=== PATIENT | female | born 1940 | race Caucasian/White ===

== ENCOUNTER → 2020-09-12 11:01 | Outpatient (BNVA) | payer MEDICARE, SELFPAY | PROVIDERS: PCP Internal Medicine; Referring Provider Internal Medicine; Visit Provider Internal Medicine | DX: I48.92 Unspecified atrial flutter (principal); I35.0 Nonrheumatic aortic (valve) stenosis; Z79.01 Long term (current) use of anticoagulants | CPT/HCPCS: 99212 ==

== ENCOUNTER → 2021-02-27 12:46 | Outpatient (REF) | payer MEDICARE, SELFPAY ==
--- NOTE | 2021-02-27 12:52 | CA_ITS ---
Transthoracic Echocardiogram Patient (Last, First, Middle): Alondra Kaye J Gender: Female Date of : 1940 Age: 80 Procedure Date: 02/27/2021 Procedure Type: Transthoracic Echocardiogram Location: OP Height: 165.1 cm Weight: 70.31 kg BSA: 1.78 m2 Heart Rate: bpm BP: 136 / 70 mmHg Home Appliances Mechanic: [email or web address] Referring MD: Hermes Hermosillo MD Symptoms: I35.0 - Nonrheumatic aortic (valve) stenosis Study Quality: Good ECG Rhythm: Sinus Conclusions: - The left ventricular systolic function is normal. The visually estimated ejection fraction is between 55-60%. - There is moderate aortic valve stenosis. - There is moderate mitral annular calcification. Findings Left Ventricle Normal left ventricular cavity size. There is mildly increased left ventricular wall thickness. The left ventricular systolic function is normal. The visually estimated ejection fraction is between 55-60%. There is no evidence of regional wall motion abnormalities. E/E prime ratio is >15, consistent with elevated filling pressures. Evidence suggests grade I (mild) diastolic dysfunction. Right Ventricle Normal right ventricular cavity size. There is low normal right ventricular systolic function. Atria The left atrium is normal in size. The right atrium is normal in size. Aortic Valve There is severe calcification of the aortic valve. There is moderate aortic valve stenosis. The peak aortic velocity is 2.97 m/s with a calculated peak gradient of 35 mmHg. The mean gradient is 20 mmHg. The aortic valve area is 1.07 cm2. There is no aortic valve regurgitation. Dimensionless index 0.36. Stroke volume 39ml. Mitral Valve There is moderate mitral annular calcification. There is mild mitral valve regurgitation. There is no mitral valve stenosis. Pulmonic Valve The pulmonic valve was not well visualized. Tricuspid Valve There is trace tricuspid valve regurgitation. The pulmonary artery systolic pressure is normal. Great Vessels The aortic annulus is normal in size. Venous The inferior vena cava is normal in size and collapses greater than 50% with inspiration. Pericardium/Pleural There is no evidence of pericardial effusion. Prior Study Comparison No significant change compared to prior study dated: 05/24/2020. Measurements 2D Linear Measurements IVSd: 1.14 0.6-0.9/0.6-1.0 cm LVIDd: 3.61 3.9-5.3/4.2-5.9 cm LVIDd Index: 2.03 2.4-3.2/2.2-3.1 cm/m2 LVIDs: 2.67 2.0-3.6 cm LVPWd: 1.14 0.7-1.1 cm Ao Root: 3.30 2.1-3.5 cm LA Diam: 3.70 2.7-3.8/3.0-4.0 cm LAIDs Index: 2.08 1.5-2.3 cm/m2 LV Mass: 163.58 67-162/88-224 g LV Mass Index: 91.90 43-95/49-115 g/m2 LVOT Diam: 2.00 3.0+(-)1.3 cm 2D Systolic Function EF 4C: 57.80 >55% EF 2C: 58.60 >55% EF BiP: 59.10 >55% Mitral Valve MV Pk E: 1.07 MV PK A: 1.01 MV Decel Time: 237.00 E/A: 1.10 E'Lateral: 8.16 E'Medial: 6.09 E/E' Med: 17.60 E/E' Lat: 13.10 PHT: 69.00 MVA PHT: 3.19 Decel Floyd: 4.51 Aortic Valve AoV Pk Butch: 2.97 AoV Mn Butch: 2.16 AoV VTI: 0.66 AoV Pk Grad: 35.00 Aov Mn Grad: 20.00 MAXIMO Cont.VTI: 1.07 LVOT LVOT Pk Butch: 1.07 LVOT Mn Butch: 0.76 LVOT VTI: 0.22 LVOT Pk Grad: 5.00 LVOT Mn Grad: 3.00 LVOT Diam: 2.00 LVOT Area: 3.14 Diastolic Function MV Pk E: 1.07 MV Pk A: 1.01 E/A: 1.10 E'Medial: 6.09 E/E' Med: 17.60 E' Laterial: 8.16 E/E' Lat: 13.10 Tricuspid Valve TR Pk Butch: 1.97 TR Pk Grad: 16.00 RA Press: 3.00 RVSP: 19.00 Great Vessels Aorta Ao Root-2D: 3.30 2.0-3.7 cm Ao Arch: 2.50 Updated in Other Vendor System with Status of Final Hermes Hermosillo MD electronically signed on 02/28/2021 4:22:34 PM with status of Final
== END ==
LOC: HO.CARD 12:46
PROVIDERS: PCP Internal Medicine; Visit Provider Internal Medicine
DX: I35.0 Nonrheumatic aortic (valve) stenosis (principal)
CPT/HCPCS: 93306

== ENCOUNTER → 2021-03-07 10:53 | Outpatient (BNVA) | payer MEDICARE, SELFPAY | PROVIDERS: PCP Internal Medicine; Visit Provider Internal Medicine | DX: I48.92 Unspecified atrial flutter (principal); I35.0 Nonrheumatic aortic (valve) stenosis; I05.9 Rheumatic mitral valve disease, unspecified | CPT/HCPCS: 93005; 99212 ==

== ENCOUNTER 2021-06-02 13:58 | Outpatient (REF) | payer MEDICARE, SELFPAY ==
--- NOTE | ~2021-06-02 | MR_ITS ---
EXAMINATION: MR LUMBAR SPINE WITHOUT CONTRAST CLINICAL INFORMATION: Intervertebral disc degeneration lumbar region. Radicular pain bilaterally. COMPARISON: None TECHNIQUE: MRI of the lumbar spine was obtained using routine sequences without contrast. FINDINGS: The lumbar vertebral bodies maintain normal height and alignment. There is dextroscoliotic curvature in the lower thoracic spine levoscoliotic curvature in the lower lumbar spine. There is mild left lateral listhesis of L4 on L5. Advanced disc height loss is seen at L3-L4, L4-L5, and L5-S1. Subchondral marrow edema is seen at the superior endplate of L2. There is a hemangioma in the L1 vertebral body. The distal spinal cord is normal in signal. Ligamentum flavum infolding mildly deform the dorsal cord at the T11-T12 level with associated mild spinal canal stenosis. The posterior paraspinal musculature demonstrates fatty atrophy. SPINAL LEVELS: L1-L2: Disc bulging. Mild narrowing of the left neural foramen. L2-L3: Disc bulging with asymmetric narrowing the right subarticular zone. Mild narrowing of the neural foramina. L3-L4: Disc bulging with ligamentum flavum infolding moderate facet arthropathy. Mild spinal canal stenosis with right more than left subarticular stenosis with compression of the traversing right L4 nerve root. Mild to moderate compression of the exiting right L3 nerve root. Left neural foramen is mildly narrowed. L4-L5: Disc bulging with ligament flavum infolding and severe facet arthropathy results in severe spinal canal stenosis with thecal sac compression and compression of the traversing left more than right L5 nerve roots. Severe right and moderate left neural foraminal stenosis with significant compression of the exiting right L4 nerve root. Left L4 nerve root is mildly compressed. L5-S1: Disc bulging with moderate to severe facet arthropathy. Bilateral subarticular stenosis with compression of the traversing S1 nerve roots. Severe bilateral neural foraminal stenosis with significant compression of both exiting L5 nerve roots. MR/MR lumbar spine wo con IMPRESSION: Advanced multilevel degenerative spondylotic changes. At L3-L4 there is bilateral subarticular stenosis with compression of the traversing right L4 nerve root and mild to moderate compression of the exiting right L3 nerve root. At L4-L5 there is severe spinal canal stenosis with thecal sac compression and compression of the traversing L5 nerve roots. Severe right and moderate left neural foraminal stenosis with significant compression of the exiting right L4 nerve root. Left L4 nerve root is mildly compress. At L5-S1 there is compression of the bilateral traversing S1 nerve roots. Severe bilateral neural foraminal stenosis is seen with significant compression of both exiting L5 nerve roots.
== END 2021-06-02 13:59 | disposition home or self-care (01) ==
LOC: HO.MRI 13:58
PROVIDERS: Visit Provider Internal Medicine
DX: M51.36 Other intervertebral disc degeneration, lumbar region (principal)
CPT/HCPCS: 72148

== ENCOUNTER 2021-06-09 11:34 | Emergency (ER) | payer MEDICARE, SELFPAY ==
--- NOTE | ~2021-06-09 | CT_ITS ---
EXAMINATION: CT ABDOMEN AND PELVIS WITHOUT CONTRAST CLINICAL INFORMATION: Right-sided pain. COMPARISON: None TECHNIQUE: Multidetector volumetric imaging was performed from the superior aspect of the liver through the pubic symphysis. Sagittal and coronal reformatted images were obtained on the technologist's workstation. This CT examination was performed using dose optimization techniques as appropriate, variously including the following: *Automated exposure control *Adjustment of mA and/or kV according to patient size (this includes techniques or standardized protocols for targeted exams where dose is matched to indication/reason for exam; i.e. extremities or head) *Use of iterative reconstruction technique DLP: 545 mGy-cm FINDINGS: LUNG BASES: Minimal atelectatic changes are seen in left lung base. The heart size is normal. There is a small hiatal hernia. LIVER, GALLBLADDER, AND BILIARY TREE: The liver is normal in size, shape, and attenuation. No focal hepatic lesion or biliary ductal dilatation is present. The gallbladder is unremarkable with no evidence of radiopaque gallstones, gallbladder wall thickening, or obvious pericholecystic inflammatory changes. PANCREAS: Unremarkable. SPLEEN: Unremarkable. ADRENAL GLANDS: Unremarkable. KIDNEYS AND URETERS: The kidneys are normal in size, shape, and attenuation. No hydronephrosis, hydroureter, or calculi seen. No perinephric stranding. There is 3 mm radiopaque density in midpole of both kidneys without caliectasis question tiny calculi or calcification. BLADDER: The bladder is moderately distended. GASTROINTESTINAL TRACT: There is moderate scattered stool, diverticuli and gas without significant distention or diverticulitis. The small bowel loops are normal caliber. Appendix is not visualized. ABDOMINAL WALL: No significant hernia is appreciated. LYMPH NODES: Normal. VASCULAR: There is atherosclerotic calcification of abdominal aorta and common iliac arteries. PELVIC VISCERA: There is no free fluid or free air seen. Prominent left inguinal canal with fat within is noted. OSSEOUS STRUCTURES: There is levoscoliosis with degenerative disc changes L5-S1, L4-L5 L3-L4 and L2-L3 disc levels with moderate spondylosis. No lytic or sclerotic process seen. CT/CT abdomen pelvis wo con IMPRESSION: 3 mm radiopaque density visualized in midpole of both kidneys without caliectasis question tiny stones versus calcification. There is a midpole exophytic 8 mm cyst left kidney. Mild constipation with scattered colonic diverticulosis. Small hiatal hernia. Mild levoscoliosis with degenerative disc changes as described above.
[2021-06-09 11:43] VITALS: BP 151/80; PULSE 90; O2SAT 98
--- NOTE | 2021-06-09 12:16 | ED_ITS ---
HPI - Abdominal Pain General Chief Complaint: Abdominal Pain Stated Complaint: lower back/flank pain Time Seen by Provider: 06/09/21 12:16 Source: patient Mode of arrival: ambulatory Limitations: no limitations History of Present Illness HPI narrative: Patient with history of chronic back pain secondary to lumbar ca nal stenosis, been followed by her PCP complaining of increased pain in the back radiating to the right leg, in the right mid and upper quadrant for last few weeks and got worse in last 1 week no vomiting no diarrhea no blood in the stool feel slightly nauseated. No fever or chills no abdominal distension moving her bowels normally patient MRI done on 06/19 for lumbar spine Related Data Home Medications Medication Instructions Recorded Confirmed baclofen 10 mg tablet mg PO 09/12/20 03/07/21 gabapentin 100 mg capsule 200 mg PO BEDTIME 09/12/20 03/07/21 hydroxychloroquine 200 mg tablet 0 mg PO 09/12/20 03/07/21 latanoprost 0.005 % eye drops drp OPHTHALMIC (EYE) 09/12/20 03/07/21 omeprazole 20 mg capsule,delayed 20 mg PO DAILY 09/12/20 03/07/21 release prednisone 2.5 mg tablet 0 mg PO 09/12/20 03/07/21 tramadol 50 mg tablet 50 mg PO QID 09/12/20 03/07/21 Previous Rx's Medication Instructions Recorded diltiazem HCl 120 mg 120 mg PO DAILY #90 cap 03/07/21 capsule,extended release 24 hr apixaban 5 mg tablet (Eliquis) 5 mg PO BID 90 Days #180 tab 05/17/21 Allergies Allergy/AdvReac Type Severity Reaction Status Date / Time lisinopril [LISINOPRIL] Allergy Mild COUGH Verified 03/07/21 11:02 Tlymrku-Bxf-Xgx Reductase Allergy Mild RASH Verified 03/07/21 11:02 Inhibitor [LBTCDQX-GIH-YIC REDUCTASE INHIBITOR] cephalexin [Keflex] Allergy Unknown GI upset Verified 03/07/21 11:02 and pain hydrochlorothiazide Allergy Unknown unknown Verified 03/07/21 11:02 Review of Systems Review of Systems Constitutional : No Weight loss, No Fever, No Chills ENT/Mouth : No sore throat, No Rhinorrhea Eyes: No Eye Pain, No Swelling Cardiovascular : No Chest Pain, no palpitations Respiratory : No Cough, No Sputum, no shortness of breath Gastrointestinal : +Nausea, No Vomiting, No Diarrhea,+ abdominal Pain, no black stools Genitourinary : No Dysuria, No Urinary Frequency Musculoskeletal : No joint pain, No Myalgias, No Joint Swelling Skin : No Skin Lesions, No rash Neuro : No Weakness, No Numbness, No Dizziness, No Headache Psych : No Anxiety/Panic, No Depression Heme/Lymph: No Bruising, No Lymphadenopathy Endocrine : No Polyuria, No Polydipsia All other systems reviewed and are negative Physical Exam Vital Signs: Vital Signs: Last Vital Signs Temp 97.9 F 06/09/21 14:12 Pulse 78 06/09/21 14:22 Resp 17 06/09/21 14:22 BP 154/68 H 06/09/21 14:22 Pulse Ox 100 06/09/21 14:22 Body Mass Index 24.3 Appearance: Alert. Oriented X3. No acute distress. Eyes: no pallor or icterus ENT: Pharynx normal. Oral Mucosa moist Neck: Normal inspection. Neck supple. CVS: Normal heart rate and rhythm. Pulses normal. Respiratory: No respiratory distress. Equal air entry bilateral, no wheezing/rales/rhonchi Abdomen: Soft , deep tenderness right lower and right upper quadrant, no rebound tenderness or guarding Bowel sounds are present, no mass palpable, no CVA tenderness Skin: Skin warm and dry. Normal skin color. Normal skin turgor. Extremities: No lower extremity edema. No calf tenderness Back: Diffuse lumbar spine tenderness SLR negative bilateral neurovascular intact Neuro: Oriented X 3. No motor deficit. No sensory deficit.No cerebellar signs , cranial nerves II-XII intact MDM - Abdominal Pain MDM Narrative Medical decision making narrative: Patient MRI of lumbar spine diffuse lumbar canal stenosis involving from L2-L4 mostly on the right side likely the cause of the pain awaiting for the CT scan results labs are stable Patient's CT scan abdomen is negative for any acute pathology will discharge the patient home advised to continue her pain medication follow-up with PCP Lab Data Attestation: I reviewed the patient's lab results. Result diagrams: 06/09/21 12:40 06/09/21 12:40 Labs: Lab Results 06/09/21 06/09/21 06/09/21 Range/Units 12:40 12:40 12:40 WBC 10.0 (4.8-10.8) X10*3/uL RBC 4.21 (4.20-5.50) X10*6/uL Hgb 14.1 (12.0-16.0) g/dl Hct 40.9 (37-47) % MCV 97.1 (80-98) fL MCH 33.5 H (27.0-33.0) pg MCHC 34.5 (31.0-35.0) g/dl RDW 11.4 (11.0-16.0) % Plt Count 337 (160-400) X10*3/uL MPV 8.3 L (9.4-12.3) fL Immature Gran % (Auto) 0.3 (0.0-0.4) % Neut % (Auto) 84.3 H (45-73) % Lymph % (Auto) 7.0 L (20-40) % Stephenson % (Auto) 7.9 (2-11) % Eos % (Auto) 0.1 (0-4) % Baso % (Auto) 0.4 (0-2) % Lymph # (Auto) 0.7 L (1.2-4.9) X10*3/uL Stephenson # (Auto) 0.8 (0.1-1.2) X10*3/uL Eos # (Auto) 0.0 (0.0-0.4) X10*3/uL Baso # (Auto) 0.0 (0.0-0.2) X10*3/uL Abs Immat Gran (auto) 0.03 (0.00-0.03) X10*3/uL Absolute Neuts (auto) 8.4 H (2.0-8.3) X10*3/uL Absolute Nucleated RBC 0.000 (0.0-0.012) X10*3/uL Nucleated RBC % (auto) 0.0 (0.0-0.2) /100WBC PT 14.5 H (9.9-13.0) SEC INR 1.3 H (0.9-1.1) Sodium 133 L (135-145) mmol/L Potassium 3.9 (3.3-5.1) mmol/L Chloride 98 (96-108) mmol/L Carbon Dioxide 23 (22-29) mmol/L Anion Gap 16 (12-20) BUN 15 (9-16) mg/dL Creatinine 0.69 (0.5-1.4) mg/dL Estim Creat Clear Calc 58.8 Estimated GFR > 60 Random Glucose 94 (60-115) mg/dL Calcium 9.7 (8.4-10.2) mg/dL Total Bilirubin 1.1 H (0.0-1.0) mg/dL Direct Bilirubin 0.4 (0.0-0.5) mg/dL AST 26 (5-31) U/L ALT 24 (0-31) U/L Alkaline Phosphatase 88 (39-117) U/L Total Protein 6.5 (6.5-8.0) g/dL Albumin 4.1 (3.5-5.0) g/dL Lipase 26 (8-78) U/L Urine Color Urine Appearance Urine pH (5.0-8.0) Ur Specific [place] (1.005-1.025) Urine Protein (NEG-TRACE) MG/DL Urine Glucose (UA) (NEG) MG/DL Urine Ketones (NEG) MG/DL Urine Blood (NEG) Urine Nitrite (NEG) Ur Leukocyte Esterase (NEG) COVID-19 (DARLINE) (Negative) COVID-19 Clin Com 06/09/21 06/09/21 Range/Units 12:40 13:56 WBC (4.8-10.8) X10*3/uL RBC (4.20-5.50) X10*6/uL Hgb (12.0-16.0) g/dl Hct (37-47) % MCV (80-98) fL MCH (27.0-33.0) pg MCHC (31.0-35.0) g/dl RDW (11.0-16.0) % Plt Count (160-400) X10*3/uL MPV (9.4-12.3) fL Immature Gran % (Auto) (0.0-0.4) % Neut % (Auto) (45-73) % Lymph % (Auto) (20-40) % Stephenson % (Auto) (2-11) % Eos % (Auto) (0-4) % Baso % (Auto) (0-2) % Lymph # (Auto) (1.2-4.9) X10*3/uL Stephenson # (Auto) (0.1-1.2) X10*3/uL Eos # (Auto) (0.0-0.4) X10*3/uL Baso # (Auto) (0.0-0.2) X10*3/uL Abs Immat Gran (auto) (0.00-0.03) X10*3/uL Absolute Neuts (auto) (2.0-8.3) X10*3/uL Absolute Nucleated RBC (0.0-0.012) X10*3/uL Nucleated RBC % (auto) (0.0-0.2) /100WBC PT (9.9-13.0) SEC INR (0.9-1.1) Sodium (135-145) mmol/L Potassium (3.3-5.1) mmol/L Chloride (96-108) mmol/L Carbon Dioxide (22-29) mmol/L Anion Gap (12-20) BUN (9-16) mg/dL Creatinine (0.5-1.4) mg/dL Estim Creat Clear Calc Estimated GFR Random Glucose (60-115) mg/dL Calcium (8.4-10.2) mg/dL Total Bilirubin (0.0-1.0) mg/dL Direct Bilirubin (0.0-0.5) mg/dL AST (5-31) U/L ALT (0-31) U/L Alkaline Phosphatase (39-117) U/L Total Protein (6.5-8.0) g/dL Albumin (3.5-5.0) g/dL Lipase (8-78) U/L Urine Color YELLOW Urine Appearance CLEAR Urine pH 6.5 (5.0-8.0) Ur Specific [place] 1.010 (1.005-1.025) Urine Protein NEG (NEG-TRACE) MG/DL Urine Glucose (UA) NEG (NEG) MG/DL Urine Ketones 15 (NEG) MG/DL Urine Blood NEG (NEG) Urine Nitrite NEG (NEG) Ur Leukocyte Esterase NEG (NEG) COVID-19 (DARLINE) Negative (Negative) COVID-19 Clin Com See Note Discharge Plan Discharge Clinical Impression: Lumbar canal stenosis Qualifiers: Neurogenic claudication status: without neurogenic claudication Qualified Code(s): M48.061 - Spinal stenosis, lumbar region without neurogenic claudication Patient Disposition: Home, Self-Care Instructions: Chronic Back Pain (DC) Additional Instructions: Continue pain medication and follow-up with your PCP Prescriptions: No Action Eliquis 5 mg tablet 5 mg PO BID 90 Days Qty: 180 RF: 3 prednisone 2.5 mg tablet 0 mg PO RF: 0 tramadol 50 mg tablet 50 mg PO QID RF: 0 omeprazole 20 mg capsule,delayed release(DR/EC) 20 mg PO DAILY RF: 0 baclofen 10 mg tablet PO RF: 0 gabapentin 100 mg capsule 200 mg PO BEDTIME RF: 0 latanoprost 0.005 % drops ophthalmic (eye) RF: 0 hydroxychloroquine 200 mg tablet 0 mg PO RF: 0 diltiazem HCl 120 mg capsule,extended release 24hr 120 mg PO DAILY Qty: 90 RF: 4 PMFSH Past Medical History Medical History Essential hypertension Nonrheumatic aortic (valve) stenosis Paroxysmal atrial flutter Psoriatic arthritis Surgical History History of hysterectomy History of knee surgery Family History Family History Father CVD (cardiovascular disease) Mother No problems noted. Social History Social History Advance Directives: Yes Advance Directives Information Provided: Yes Advance Directives on File: No
[2021-06-09 12:20] VITALS: BP 150/73; PULSE 85; RESP 17; TEMP 36.6; O2SAT 100; BMI 24.3
--- NOTE | 2021-06-09 12:24 | ECG_ITS ---
Test Reason : ABDOMINAL PAIN Blood Pressure : / mmHG Vent. Rate : 080 BPM Atrial Rate : 080 BPM P-R Int : 194 ms QRS Dur : 138 ms QT Int : 426 ms P-R-T Axes : 083 -06 010 degrees QTc Int : 491 ms Normal sinus rhythm Right bundle branch block Minimal voltage criteria for LVH, may be normal variant Abnormal ECG When compared with ECG of 19-AUG-2019 20:44, MS interval has decreased Right bundle branch block has replaced Incomplete right bundle branch block Referred By: Claude Bullard Electronically Signed By:ZIYAD CROWLEY
[2021-06-09 12:44] LABS: MANUAL DIFF FLAG NO
[2021-06-09] MEDS: ondansetron HCL 4 MG/2 ML VIAL IVPUSH (12:47)
[2021-06-09] MEDS: Morphine Sulfate 2 MG/ML CARTRIDGE IVPUSH (12:47)
[2021-06-09 12:48] LABS: Basophils Percent Auto 0.4 % (0-2); Eosinophils Percent Auto 0.1 % (0-4); Hematocrit 40.9 % (37-47); Hemoglobin 14.1 g/dl (12.0-16.0); Imm Gran Abs Auto 0.03 X10*3/uL (0.00-0.03); Imm Gran Pct Auto 0.3 % (0.0-0.4); Lymphocytes Absolute Auto 0.7 X10*3/uL (1.2-4.9); Mean Corpuscular HGB Conc 34.5 g/dl (31.0-35.0); Mean Corpuscular Hemoglobin 33.5 pg (27.0-33.0); Mean Corpuscular Volume 97.1 fL (80-98); Mean Platelet Volume 8.3 fL (9.4-12.3); Monocytes Absolute Auto 0.8 X10*3/uL (0.1-1.2); Monocytes Percent Auto 7.9 % (2-11); Neutrophils Absolute Auto 8.4 X10*3/uL (2.0-8.3); Neutrophils Percent Auto 84.3 % (45-73); Platelet Count 337 X10*3/uL (160-400); Red Blood Count 4.21 X10*6/uL (4.20-5.50); Red Cell Distribution Width 11.4 % (11.0-16.0)
[2021-06-09] MEDS: 0.9 % Sodium Chloride 1,000 ML 999 ML IVCONT (12:48)
[2021-06-09 13:03] LABS: INTERNATIONAL NORM RATIO 1.3 (0.9-1.1); Prothrombin Time 14.5 SEC (9.9-13.0)
[2021-06-09 13:04] LABS: COVID-19 Test Negative (Negative)
[2021-06-09 13:28] LABS: Alanine Aminotransferase 24 U/L (0-31); Albumin Level 4.1 g/dL (3.5-5.0); Alkaline Phosphatase 88 U/L (39-117); Anion Gap 16 (12-20); Aspartate Amino Transferase 26 U/L (5-31); Bilirubin Direct 0.4 mg/dL (0.0-0.5); Bilirubin Total 1.1 mg/dL (0.0-1.0); Blood Urea Nitrogen 15 mg/dL (9-16); Calcium 9.7 mg/dL (8.4-10.2); Carbon Dioxide 23 mmol/L (22-29); Chloride 98 mmol/L (96-108); Creatinine Clr Calc Pharmacy 58.8; Estimated Glomerular Filt Rate > 60; Glucose Random 94 mg/dL (60-115); Lipase 26 U/L (8-78); Potassium 3.9 mmol/L (3.3-5.1); Sodium 133 mmol/L (135-145); Total Protein 6.5 g/dL (6.5-8.0)
[2021-06-09 14:03] LABS: Glucose Urine UA NEG (NEG); Leukocyte Esterase Urine NEG (NEG); Nitrite Urine NEG (NEG); PH 6.5 (5.0-8.0); Urine Blood NEG (NEG); Urine Ketones 15 MG/DL (NEG); Urine Protein NEG (NEG-TRACE)
[2021-06-09 14:04] LABS: Appearance Urine CLEAR; Color Urine YELLOW
[2021-06-09 14:12] VITALS: BP 154/68; PULSE 79; RESP 14; TEMP 36.6; O2SAT 96
[2021-06-09 14:22] VITALS: BP 154/68; PULSE 78; RESP 17; O2SAT 100
[2021-06-09 16:00] VITALS: BP 175/83; PULSE 88; RESP 18; O2SAT 100
== END 2021-06-09 16:44 | disposition home or self-care (01) ==
PROVIDERS: Emergency Provider Internal Medicine
DX: M48.061 Spinal stenosis, lumbar region without neurogenic claudication (principal); Z20.822 Contact with and (suspected) exposure to COVID-19; I10 Essential (primary) hypertension; I48.92 Unspecified atrial flutter
CPT/HCPCS: 36415; 74176; 80048; 80076; 81003; 83690; 85025; 85610; 87635; 93005; 96361; 96374; 96375; 99284; J2270; J2405

== ENCOUNTER 2021-06-16 20:57 | Inpatient (IN) | payer MEDICARE, SELFPAY ==
--- NOTE | ~2021-06-16 | MR_ITS ---
EXAMINATION: MR CERVICAL SPINE WITHOUT CONTRAST CLINICAL INFORMATION: Neurogenic bladder. COMPARISON: MRI scan of the cervical spine 09/16/2019. TECHNIQUE: MRI of the cervical spine was obtained using routine sequences without contrast. FINDINGS: VERTEBRAL BODIES AND PARASPINAL SOFT TISSUES: There is reversal of the normal cervical lordosis. There is a stable 3.5 mm anterolisthesis of C3 on C4. There is multilevel narrowing of intervertebral disc height between C3-C4 and C6-C7. There are multilevel degenerative endplate contour changes. There has been interval resolution of the edematous signal changes at C3-C4. Vertebral body heights are maintained and no fractures are demonstrated. Overall, marrow signal is homogenous. The paravertebral structures are unremarkable. CERVICOMEDULLARY JUNCTION AND VISUALIZED POSTERIOR FOSSA: The craniocervical and posterior fossa structures are normal. There is slight increased signal in the spinal cord at the level of C3-C4 which may be consistent with edema. SPINAL LEVELS: C2-C3: There is moderate left and mild right facet arthropathy. There is a shallow posterior disc protrusion without spinal cord compression or central stenosis. There are uncovertebral osteophytes. There is mild left foraminal narrowing. C3-C4: There is severe left and mild right facet arthropathy. There is a broad-based posterior soft disc protrusion with unroofing of the disc, which further compresses the spinal cord and there is severe central stenosis. There are uncovertebral osteophytes bilaterally, and there is severe bilateral foraminal narrowing. C4-C5: There is moderate left and mild right facet arthropathy. There is a posterior disc protrusion which effaces CSF ventral to the spinal cord without spinal cord compression. There is mild central stenosis. There are uncovertebral osteophytes, more prominent on the left. There is severe bilateral foraminal narrowing. C5-C6: There is moderate bilateral facet arthropathy. There is a broad-based posterior disc protrusion which effaces CSF ventral to the spinal cord without spinal cord compression. There is mild central stenosis. There are uncovertebral osteophytes. There is severe right and moderate to severe left foraminal narrowing. C6-C7: There is mild left facet arthropathy. There is a posterior disc protrusion with mild distortion of the ventral thecal sac without spinal cord compression. There is mild central stenosis. There are uncovertebral osteophytes. There is moderate bilateral foraminal narrowing. C7-T1: The facet joints appear normal bilaterally. Posterior disc contour is normal. There is no spinal cord compression or central stenosis. The neural foramina are patent bilaterally. MR/MR cervical spine wo con IMPRESSION: 1. The study redemonstrates a 3.5 mm anterolisthesis of C3 on C4 secondary to facet arthropathy. There is a broad-based posterior disc protrusion which further compresses the spinal cord and there is severe central stenosis. There is increased signal in the cord at this level, consistent with edema. 2. Facet arthropathy and spondylitic changes are demonstrated at multiple other levels. There is mild central stenosis at C4-C5, C5-C6 and C6-C7. There is severe bilateral foraminal narrowing at C4-C5, severe right and moderate to severe left foraminal narrowing at C5-C6 and moderate bilateral foraminal narrowing at C6-C7. 3. This critical result was discussed with Lou Beckham by telephone on 06/18/2021 at 3:50 PM and it was ascertained that the content and urgency of the report was understood at the time of direct communication.
[2021-06-16 21:10] VITALS: BP 190/100; BP 190/108; PULSE 90; PULSE 93; RESP 15; TEMP 36.5; O2SAT 100; BMI 24.3
[2021-06-16 21:47] VITALS: BP 184/90; PULSE 84; RESP 13; O2SAT 100
--- NOTE | 2021-06-16 21:47 | PC.NURSE ---
Pt sheet draw to without incidence. 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 Pt provided destiney care, purewick in place. Pt with red fall band on wrist, red fall sign posted outside of room and red fall prevention socks on. Bed in low locked position, rails raised, call connors within reach, fall alarm active and audible.
[2021-06-16 22:16] LABS: COVID-19 Test Negative (Negative)
--- NOTE | 2021-06-16 22:27 | ED_ITS ---
HPI - Back Pain/Injury General Chief Complaint: Back Pain/Injury Stated Complaint: BACK PAIN Time Seen by Provider: 06/16/21 22:25 Source: patient Mode of arrival: EMS History of Present Illness HPI Narrative: This is an 80-year-old female who presents via EMS from home with complaints of increased lower back pain from her baseline as well as reporting that over the past week she has experienced increasing weakness in her bilateral lower extremities that she further clarifies is not associated with the level of pain but that it is ?truly weaker?. She denies any numbness in the groin area and denies any fever, chills, shortness of breath, chest pain/palpitations, but she does describe some nausea without vomiting and otherwise denies any diarrhea as well as denies any recent changes in medications or dosage. Patient then made comment at the end of the interview that she had a urine collection device in place and although she felt like she may have urinated she states that ?I do not feel any better?. Related Data Home Medications Medication Instructions Recorded Confirmed baclofen 10 mg tablet 10 mg PO QID PRN 09/12/20 06/16/21 gabapentin 100 mg capsule 200 mg PO BEDTIME 09/12/20 06/16/21 hydroxychloroquine 200 mg tablet 200 mg PO DAILY 09/12/20 06/16/21 latanoprost 0.005 % eye drops 1 drp OPHTHALMIC (EYE) BEDTIME 09/12/20 06/16/21 omeprazole 20 mg capsule,delayed 20 mg PO DAILY 09/12/20 06/16/21 release prednisone 5 mg tablet 1 tab PO DAILY 06/16/21 06/16/21 Previous Rx's Medication Instructions Recorded diltiazem HCl 120 mg 120 mg PO DAILY #90 cap 03/07/21 capsule,extended release 24 hr apixaban 5 mg tablet (Eliquis) 5 mg PO BID 90 Days #180 tab 05/17/21 Allergies Allergy/AdvReac Type Severity Reaction Status Date / Time lisinopril [LISINOPRIL] Allergy Mild COUGH Verified 06/16/21 21:10 Sbrwumx-Voz-Llh Reductase Allergy Mild RASH Verified 06/16/21 21:10 Inhibitor [[id number] REDUCTASE INHIBITOR] cephalexin [Keflex] Allergy Unknown GI upset Verified 06/16/21 21:10 and pain hydrochlorothiazide Allergy Unknown unknown Verified 06/16/21 21:10 Sulfa (Sulfonamide Allergy Rash Verified 06/16/21 21:10 Antibiotics) Review of Systems Review of Systems: Pertinent positives and negatives as stated in HPI 10 point review of systems is otherwise negative. [facility] Past Medical History Source: nursing notes reviewed Medical History Essential hypertension Nonrheumatic aortic (valve) stenosis Paroxysmal atrial flutter Psoriatic arthritis Surgical History History of hysterectomy History of knee surgery Family History Family History Father CVD (cardiovascular disease) Mother No problems noted. Social History Social History Advance Directives: No Advance Directives Information Provided: No Physical Exam Vital Signs: Vital Signs: Last Vital Signs Temp 97.7 F 06/16/21 21:10 Pulse 81 06/16/21 23:40 Resp 17 06/16/21 23:40 BP 178/93 H 06/16/21 23:40 Pulse Ox 100 06/16/21 23:40 Body Mass Index 24.3 VITAL SIGNS: Reviewed. GENERAL: Well developed, well nourished, in no acute distress. HEAD: Normocephalic/atraumatic EYES: PERRLA, EOMI EARS: Ext canals without abnormality NOSE: Nares patent bilateral OROPHARYNX: no oral lesions noted, posterior pharynx clear LUNGS: Normal breath sounds. No adventitious sounds or accessory muscle use. SpO2<100> CARDIOVASCULAR: Regular rate and rhythm without noted murmurs, no JVD or lower extremity edema. ABDOMEN: Soft, non-tender, non-distended with bowel sounds. MUSCULOSKELETAL: No tenderness, deformities, or effusions noted on gross inspection. EXTREMITIES: No cyanosis, clubbing or edema. SKIN: Inspection of the skin reveals no rashes NEUROLOGIC: Alert and oriented x 4. Sensation symmetrical in bilateral lower extremities from ankle to thigh, Strength L>R, otherwise no focal deficits. Course Course Course Narrative: 80-year-old female with history and clinical presentation consistent with significant L/S spinal stenoses, right greater than left and concerns regarding patient's comment about inability to since relief from voiding. Immediate bladder scan was ordered and patient noted to have retained urine estimated at over a L. although patient voided PVR was approximately 800 cc and on review of urinalysis no evidence of UTI. Again medication list was reviewed and in consistent with impact on urinary retention. Otherwise, review of lab work shows hyponatremia/chloremia. 0024: Case discussed with Neurology, Dr. Florian, who recommends 500 mg of Solu- Medrol and will see the patient in the morning. I discussed case with inpatient hospitalist who accepts admission. MDM - Back Pain/Injury Lab Data Result diagrams: 06/16/21 22:52 06/16/21 22:52 Labs: Lab Results 06/16/21 06/16/21 06/16/21 Range/Units 21:46 22:52 22:52 WBC 7.4 (4.8-10.8) X10*3/uL RBC 3.82 L (4.20-5.50) X10*6/uL Hgb 12.7 (12.0-16.0) g/dl Hct 35.8 L (37-47) % MCV 93.7 (80-98) fL MCH 33.2 H (27.0-33.0) pg MCHC 35.5 H (31.0-35.0) g/dl RDW 11.2 (11.0-16.0) % Plt Count 340 (160-400) X10*3/uL MPV 8.1 L (9.4-12.3) fL Immature Gran % (Auto) 0.3 (0.0-0.4) % Neut % (Auto) 72.9 (45-73) % Lymph % (Auto) 15.1 L (20-40) % [place] % (Auto) 11.1 H (2-11) % Eos % (Auto) 0.1 (0-4) % Baso % (Auto) 0.5 (0-2) % Lymph # (Auto) 1.1 L (1.2-4.9) X10*3/uL [place] # (Auto) 0.8 (0.1-1.2) X10*3/uL Eos # (Auto) 0.0 (0.0-0.4) X10*3/uL Baso # (Auto) 0.0 (0.0-0.2) X10*3/uL Abs Immat Gran (auto) 0.02 (0.00-0.03) X10*3/uL Absolute Neuts (auto) 5.4 (2.0-8.3) X10*3/uL Absolute Nucleated RBC 0.000 (0.0-0.012) X10*3/uL Nucleated RBC % (auto) 0.0 (0.0-0.2) /100WBC PT (9.9-13.0) SEC INR (0.9-1.1) Sodium 125 L (135-145) mmol/L Potassium 4.2 (3.3-5.1) mmol/L Chloride 92 L (96-108) mmol/L Carbon Dioxide 24 (22-29) mmol/L Anion Gap 13 (12-20) BUN 12 (9-16) mg/dL Creatinine 0.60 (0.5-1.4) mg/dL Estim Creat Clear Calc 67.7 Estimated GFR > 60 Random Glucose 100 (60-115) mg/dL Calcium 9.1 D (8.4-10.2) mg/dL Total Bilirubin 0.9 (0.0-1.0) mg/dL AST 24 (5-31) U/L ALT 20 (0-31) U/L Alkaline Phosphatase 118 H D (39-117) U/L Total Protein 5.8 L (6.5-8.0) g/dL Albumin 3.7 (3.5-5.0) g/dL Urine Color Urine Appearance Urine pH (5.0-8.0) Ur Specific [place] (1.005-1.025) Urine Protein (NEG-TRACE) MG/DL Urine Glucose (UA) (NEG) MG/DL Urine Ketones (NEG) MG/DL Urine Blood (NEG) Urine Nitrite (NEG) Ur Leukocyte Esterase (NEG) COVID-19 (DARLINE) Negative (Negative) COVID-19 Clin Com See Note 06/16/21 06/16/21 Range/Units 22:52 23:11 WBC (4.8-10.8) X10*3/uL RBC (4.20-5.50) X10*6/uL Hgb (12.0-16.0) g/dl Hct (37-47) % MCV (80-98) fL MCH (27.0-33.0) pg MCHC (31.0-35.0) g/dl RDW (11.0-16.0) % Plt Count (160-400) X10*3/uL MPV (9.4-12.3) fL Immature Gran % (Auto) (0.0-0.4) % Neut % (Auto) (45-73) % Lymph % (Auto) (20-40) % [place] % (Auto) (2-11) % Eos % (Auto) (0-4) % Baso % (Auto) (0-2) % Lymph # (Auto) (1.2-4.9) X10*3/uL [place] # (Auto) (0.1-1.2) X10*3/uL Eos # (Auto) (0.0-0.4) X10*3/uL Baso # (Auto) (0.0-0.2) X10*3/uL Abs Immat Gran (auto) (0.00-0.03) X10*3/uL Absolute Neuts (auto) (2.0-8.3) X10*3/uL Absolute Nucleated RBC (0.0-0.012) X10*3/uL Nucleated RBC % (auto) (0.0-0.2) /100WBC PT 16.5 H (9.9-13.0) SEC INR 1.4 H (0.9-1.1) Sodium (135-145) mmol/L Potassium (3.3-5.1) mmol/L Chloride (96-108) mmol/L Carbon Dioxide (22-29) mmol/L Anion Gap (12-20) BUN (9-16) mg/dL Creatinine (0.5-1.4) mg/dL Estim Creat Clear Calc Estimated GFR Random Glucose (60-115) mg/dL Calcium (8.4-10.2) mg/dL Total Bilirubin (0.0-1.0) mg/dL AST (5-31) U/L ALT (0-31) U/L Alkaline Phosphatase (39-117) U/L Total Protein (6.5-8.0) g/dL Albumin (3.5-5.0) g/dL Urine Color YELLOW Urine Appearance CLEAR Urine pH 7.0 (5.0-8.0) Ur Specific [place] 1.010 (1.005-1.025) Urine Protein NEG (NEG-TRACE) MG/DL Urine Glucose (UA) NEG (NEG) MG/DL Urine Ketones 5 (NEG) MG/DL Urine Blood NEG (NEG) Urine Nitrite NEG (NEG) Ur Leukocyte Esterase NEG (NEG) COVID-19 (DARLINE) (Negative) COVID-19 Clin Com Discharge Plan Discharge Clinical Impression: Neurogenic bladder, Weakness of both lower extremities Patient Disposition: Admitted As Inpatient
--- NOTE | 2021-06-16 22:57 | PC.NURSE ---
Labs obtained and sent for processing by Madelin Zhang RN Pt bladder scanned by this RN, pt with >999ml of urine per bladder scan. Dr Parry made aware. Plan to assist pt to bedside commode and attempt urination. If pt is successful at urinating on commode, pt to have PVR bladder scan. If pt is unsuccessful at urinating on commode, pt to have stoddard catheter placed.
[2021-06-16 23:00] LABS: MANUAL DIFF FLAG NO
[2021-06-16 23:01] LABS: Basophils Percent Auto 0.5 % (0-2); Eosinophils Percent Auto 0.1 % (0-4); Hematocrit 35.8 % (37-47); Hemoglobin 12.7 g/dl (12.0-16.0); Imm Gran Abs Auto 0.02 X10*3/uL (0.00-0.03); Imm Gran Pct Auto 0.3 % (0.0-0.4); Lymphocytes Absolute Auto 1.1 X10*3/uL (1.2-4.9); Lymphocytes Percent Auto 15.1 % (20-40); Mean Corpuscular HGB Conc 35.5 g/dl (31.0-35.0); Mean Corpuscular Hemoglobin 33.2 pg (27.0-33.0); Mean Corpuscular Volume 93.7 fL (80-98); Mean Platelet Volume 8.1 fL (9.4-12.3); Monocytes Absolute Auto 0.8 X10*3/uL (0.1-1.2); Monocytes Percent Auto 11.1 % (2-11); Neutrophils Absolute Auto 5.4 X10*3/uL (2.0-8.3); Neutrophils Percent Auto 72.9 % (45-73); Platelet Count 340 X10*3/uL (160-400); Red Blood Count 3.82 X10*6/uL (4.20-5.50); Red Cell Distribution Width 11.2 % (11.0-16.0); White Blood Count 7.4 X10*3/uL (4.8-10.8)
[2021-06-16 23:06] LABS: INTERNATIONAL NORM RATIO 1.4 (0.9-1.1); Prothrombin Time 16.5 SEC (9.9-13.0)
--- NOTE | 2021-06-16 23:10 | PC.NURSE ---
Pt's PVR documented by SHANELL Martinez. Urine sample obtained and sent to lab for processing. Pt to have stoddard catheter placed per verbal order from Dr Parry.
[2021-06-16] MEDS: Acetaminophen 325 MG TABLET 975 MG PO (23:27)
[2021-06-16] MEDS: Lidocaine 4 % Patch ADH..PATCH 1 PATCH TRANSDERMA (23:28)
[2021-06-16 23:37] LABS: Appearance Urine CLEAR; Color Urine YELLOW; Glucose Urine UA NEG (NEG); Leukocyte Esterase Urine NEG (NEG); Nitrite Urine NEG (NEG); Urine Blood NEG (NEG); Urine Ketones 5 MG/DL (NEG); Urine Protein NEG (NEG-TRACE)
[2021-06-16 23:40] VITALS: BP 178/93; PULSE 81; RESP 17; O2SAT 100
[2021-06-16 23:49] LABS: Alanine Aminotransferase 20 U/L (0-31); Albumin Level 3.7 g/dL (3.5-5.0); Alkaline Phosphatase 118 U/L (39-117); Anion Gap 13 (12-20); Aspartate Amino Transferase 24 U/L (5-31); Bilirubin Total 0.9 mg/dL (0.0-1.0); Blood Urea Nitrogen 12 mg/dL (9-16); Calcium 9.1 mg/dL (8.4-10.2); Carbon Dioxide 24 mmol/L (22-29); Chloride 92 mmol/L (96-108); Creatinine Clr Calc Pharmacy 67.7; Estimated Glomerular Filt Rate > 60; Glucose Random 100 mg/dL (60-115); Potassium 4.2 mmol/L (3.3-5.1); Sodium 125 mmol/L (135-145); Total Protein 5.8 g/dL (6.5-8.0)
[2021-06-17] VITALS (8 sets, daily range): BP systolic 122–161; BP diastolic 60–89; PULSE 80–93; RESP 13–20; TEMP 36.1–37.2; O2SAT 96–100; BMI 23.9
--- NOTE | 2021-06-17 00:04 | PC.NURSE ---
Per Dr Parry, pt to require PIV access. Dr Parry made aware that pt reports I didn't realize I was having difficulty with urination at home but now that I think about it, I realize I was going to the bathroom and then it never felt like my bladder was actually emptying entirely. Per Dr Parry, concern for worsening back pain and neurogenic bladder. Dr Parry to c/s with neuro regarding pt. Pt bed remains in low locked position, rails raised, call connors within reach and bed alarm active and audible.
[2021-06-17] MEDS: methylPREDNISolone Sod Succ 500 MG in 0.9 % Sodium Chloride 50 ML 66 MG IV (02:03)
[2021-06-17 02:14] LABS: Erythrocyte Sedimentation Rate 11 MM/HR (0-20)
[2021-06-17] MEDS: Omeprazole 20 MG CAPSULE.DR PO (05:55)
--- NOTE | 2021-06-17 06:23 | P.HPHOSP_ITS ---
History of Present Illness Date of Service: 06/17/21 Chief Complaint: worsening back pain With past medical history of HTN, nonrheumatic aortic stenosis, paroxysmal a flutter, psoriatic arthritis, presents to the hospital with complaints of worsening low back pain. Patient was seen in the hospital on 06/09 for the same , had an MRI done in the ED which showed advanced multilevel degenerative spondylotic changes, L3-L4 bilateral subarticular stenosis with compression of the traversing right foot L4 nerve root and mild to moderate compression of the existing right L3 nerve root, at L4-L5 level there is severe spinal canal stenosis with the thecal sac compression and compression of the traversing L5 nerve roots. Severe right and moderate left neural foraminal stenosis with significant compression of the existing right L4 nerve root. Left L4 nerve root is mildly compressed. Patient returns today stating that her low back pain has significantly been painful for her today, she has also weakness in her bilateral legs worse on the right and now has difficulty even ambulating due to the weakness. Patient reports that her right leg has chronically and for many years been week but today's even weaker. urinary tension all day today with inability to empty her bladder. Denies any loss of bowel control. Denies any fever or chills, no chest pain or shortness of breath, no abdominal pain nausea or vomiting, no diarrhea constipation, no urinary symptoms and no lower extremity edema On arrival to the ED patient hemodynamically stable with no significant abnormal vitals Labs are significant for WBC count 7.4, PT of 16.5, INR of 1.4, sodium of 125, alk-phos of 118, UA negative, COVID-19 negative. Case was discussed with Neurology, patient was given 500 mg of Solu-Medrol will be admitted further manage Review of Systems Review of Systems: Yes all other systems are reviewed and are negative [facility] Medical History Essential hypertension Nonrheumatic aortic (valve) stenosis Paroxysmal atrial flutter Psoriatic arthritis Family History Father CVD (cardiovascular disease) Mother No problems noted. Surgical History History of hysterectomy History of knee surgery Social History Household Members: None Housing: House Do you presently have visiting nurse or other home services: No Patient Tobacco Use Status: Never used Tobacco e-Cigarette/Vaping Use: Never Used Second Hand Smoke Exposure: No Use of substances other than those prescribed or required for medical reasons: No Currently Displaying Signs/Symptoms of Drug Intoxication Withdrawal: No Any prior treatment program specific to substance use: No Have you been hit, kicked, punched, or otherwise hurt by someone within the past year? If so, by whom?: No Do you feel safe in your current relationship?: No Current Relationship Is there a partner from a previous relationship who is making you feel unsafe now?: No Are you made to feel afraid or neglected: No Advance Directives: No Advance Directives Information Provided: No Advance Directives on File: No Do you have thoughts of harming others: None Do you have a plan to hurt others: No Plan Recently lost weight without trying: No Eating poorly because of decreased appetite: No Nutrition Risks: No Nutritional Risk Patient : No : No Poor oral hygiene: No Meds Allergies Allergy/AdvReac Type Severity Reaction Status Date / Time lisinopril [LISINOPRIL] Allergy Mild COUGH Verified 06/16/21 21:10 Bfgbwoz-Fxf-Uct Reductase Allergy Mild RASH Verified 06/16/21 21:10 Inhibitor [[id number] REDUCTASE INHIBITOR] cephalexin [Keflex] Allergy Unknown GI upset Verified 06/16/21 21:10 and pain hydrochlorothiazide Allergy Unknown unknown Verified 06/16/21 21:10 Sulfa (Sulfonamide Allergy Rash Verified 06/16/21 21:10 Antibiotics) Active Medications: Current Medications Generic Name Dose Route Start Last Admin Trade Name Freq PRN Reason Stop Dose Admin Acetaminophen 650 mg 06/17/21 01:54 Acetaminophen 325 Mg Tablet PO Q6H PRN Pain, Mild (Pain Scale 1-3) Apixaban 5 mg 06/17/21 02:00 06/17/21 02:12 Apixaban 5 Mg Tablet PO Not Given BID ANT Baclofen 10 mg 06/17/21 01:54 Baclofen 10 Mg Tablet PO QID PRN Pain Diltiazem HCl 120 mg 06/17/21 09:00 Diltiazem Hcl Cd 120 Mg Cap.Er.Deg PO DAILY [facility] Protocol Docusate Sodium 100 mg 06/17/21 01:54 Docusate Sodium 100 Mg Capsule PO DAILY PRN Constipation Gabapentin 200 mg 06/17/21 02:00 06/17/21 02:12 Gabapentin 100 Mg Capsule PO Not Given BEDTIME [facility] Hydroxychloroquine Sulfate 200 mg 06/17/21 09:00 Hydroxychloroquine Sulfate 200 Mg Tablet PO DAILY [facility] Latanoprost 1 drop 06/17/21 02:00 06/17/21 02:12 Latanoprost 0.005 % Ophth Zaria 2.5 Ml Drops EYE-BOTH Not Given BEDTIME [facility] Morphine Sulfate 4 mg 06/17/21 01:54 Morphine Sulfate 4 Mg/Ml Cartridge IVPUSH Q4H PRN Pain, Severe (Pain Scale 7-10) Protocol Omeprazole 20 mg 06/17/21 06:30 06/17/21 05:55 Omeprazole 20 Mg Capsule.Dr PO 20 mg DAILY@0630 [facility] Administration Ondansetron HCl 4 mg 06/17/21 01:54 Ondansetron Hcl 4 Mg/2 Ml Vial IVPUSH Q8H PRN Nausea and Vomiting Pharmacy Consult 1 each 06/16/21 21:06 Consult Rx Perform Med Rec MISCELLANE ONCE PRN Consult order Prednisone 5 mg 06/17/21 09:00 Prednisone 5 Mg Tablet PO DAILY [facility] Sodium Chloride 3 ml 06/17/21 08:00 0.9 % Sodium Chloride Flush 3 Ml Syringe IVFLUSH QSHIFT [facility] Home Medications Medication Instructions Recorded Confirmed Last Taken Type baclofen 10 mg tablet 10 mg PO QID PRN 09/12/20 06/16/21 Unknown History gabapentin 100 mg capsule 200 mg PO BEDTIME 09/12/20 06/16/21 Unknown History hydroxychloroquine 200 mg tablet 200 mg PO DAILY 09/12/20 06/16/21 Unknown History latanoprost 0.005 % eye drops 1 drp OPHTHALMIC (EYE) BEDTIME 09/12/20 06/16/21 Unknown History omeprazole 20 mg capsule,delayed 20 mg PO DAILY 09/12/20 06/16/21 Unknown History release prednisone 5 mg tablet 1 tab PO DAILY 06/16/21 06/16/21 Unknown History lactulose 20 gram/30 mL oral 15 g PO BID 06/17/21 06/17/21 Unknown History solution tramadol 50 mg tablet 25 mg PO TID PRN 06/17/21 06/17/21 Unknown History Physical Exam Vital Signs and Narrative: Vital Signs: Last Vital Signs Temp 97 F 06/17/21 04:00 Pulse 83 06/17/21 04:00 Resp 17 06/17/21 04:00 BP 154/89 H 06/17/21 04:00 Pulse Ox 96 06/17/21 04:00 Body Mass Index 23.9 Const: General: cooperative and no acute distress Orientation/consciousn ess: patient oriented x3 Eyes: General: appearance normal, both eyes and all related structures Resp: Effort & Inspection: normal respiratory effort and abnormal respiratory pattern Auscultation: clear to auscultation bilaterally Cardio: Rate: regular rate Rhythm: regular rhythm GI: Palpation (GI): Soft to palpation Auscultation: normal bowel sounds Skin: General skin exam: no rashes or lesions noted Neuro: Other: Has right strand 3/5, left side 4/5 in the lower extremity 5/5 in the upper extremity Decreased anal sphincter tone General: patient oriented x3 Cognition (Neuro): normal cognition Extrem: General: Yes no pedal edema Results Labs CBC and Chem 7: 06/16/21 22:52 06/16/21 22:52 Labs: Laboratory Results - last 24 hr 06/16/21 06/16/21 06/16/21 21:46 22:52 22:52 MCV 93.7 MCH 33.2 H MCHC 35.5 H RDW 11.2 Plt Count 340 MPV 8.1 L Immature Gran % (Auto) 0.3 Neut % (Auto) 72.9 Lymph % (Auto) 15.1 L [place] % (Auto) 11.1 H Eos % (Auto) 0.1 Baso % (Auto) 0.5 Lymph # (Auto) 1.1 L [place] # (Auto) 0.8 Eos # (Auto) 0.0 Baso # (Auto) 0.0 Abs Immat Gran (auto) 0.02 Absolute Neuts (auto) 5.4 Absolute Nucleated RBC 0.000 Nucleated RBC % (auto) 0.0 ESR PT INR Anion Gap 13 Estim Creat Clear Calc 67.7 Estimated GFR > 60 Random Glucose 100 Calcium 9.1 D Total Bilirubin 0.9 AST 24 ALT 20 Alkaline Phosphatase 118 H D C-Reactive Protein 0.40 Total Protein 5.8 L Albumin 3.7 Urine Color Urine Appearance Urine pH Ur Specific [place] Urine Protein Urine Glucose (UA) Urine Ketones Urine Blood Urine Nitrite Ur Leukocyte Esterase COVID-19 (DARLINE) Negative COVID-19 Clin Com See Note 06/16/21 06/16/21 06/17/21 22:52 23:11 22:52 MCV MCH MCHC RDW Plt Count MPV Immature Gran % (Auto) Neut % (Auto) Lymph % (Auto) [place] % (Auto) Eos % (Auto) Baso % (Auto) Lymph # (Auto) [place] # (Auto) Eos # (Auto) Baso # (Auto) Abs Immat Gran (auto) Absolute Neuts (auto) Absolute Nucleated RBC Nucleated RBC % (auto) ESR 11 PT 16.5 H INR 1.4 H Anion Gap Estim Creat Clear Calc Estimated GFR Random Glucose Calcium Total Bilirubin AST ALT Alkaline Phosphatase C-Reactive Protein Total Protein Albumin Urine Color YELLOW Urine Appearance CLEAR Urine pH 7.0 Ur Specific [place] 1.010 Urine Protein NEG Urine Glucose (UA) NEG Urine Ketones 5 Urine Blood NEG Urine Nitrite NEG Ur Leukocyte Esterase NEG COVID-19 (DARLINE) COVID-19 Clin Com Imaging Radiologist's Impressions: MRI MR/MR lumbar spine wo con IMPRESSION: Advanced multilevel degenerative spondylotic changes. ? At L3-L4 there is bilateral subarticular stenosis with compression of the traversing right L4 nerve root and mild to moderate compression of the exiting right L3 nerve root. ? At L4-L5 there is severe spinal canal stenosis with thecal sac compression and compression of the traversing L5 nerve roots. Severe right and moderate left neural foraminal stenosis with significant compression of the exiting right L4 nerve root. Left L4 nerve root is mildly compress. ? At L5-S1 there is compression of the bilateral traversing S1 nerve roots. Severe bilateral neural foraminal stenosis is seen with significant compression of both exiting L5 nerve roots. ? ?Done on 06/09 Assessment and Plan (1) Lumbar canal stenosis: Status: Acute (2) Neurogenic bladder: Status: Acute (3) Weakness of both lower extremities: Status: Acute This is an 80-year-old female with past medical history of psoriasis Arthritis presents to the hospital with increased weakness as well as urinary retention # lumbar canal stenosis - MRI report as above - Symptoms of lower extremity weakness as well as urinary tension most likely secondary to Nerve compression - Has Decreased anal sphincter tone - Neurology was informed and patient was given 500 Mg of IV Solu-Medrol - Will admit to telemetry pending further recommendation by Neurology - Pain control # Neurogenic bladder - Secondary to above - Durb[place] catheter placed # Bilateral lower extremity week - Secondary to above - Neurology consulted # Paroxysmal AFib - Continue apixaban, diltiazem DVT prophylaxis: Apixaban # Quality Stroke Does the patient have a stroke diagnosis?: No VTE Prior VTE?: No VTE Risk Level:: Medical - moderate - high VTE Device Contraindication: Treatment Not Indicated VTE Drug Contraindication: N/A - Med Ordered
[2021-06-17] MEDS: 0.9 % Sodium Chloride 1,000 ML 80 ML IVCONT ×2 (06:37→18:04)
[2021-06-17 07:12] LABS: Basophils Percent Auto 0.4 % (0-2); Hematocrit 39.4 % (37-47); Hemoglobin 13.9 g/dl (12.0-16.0); Imm Gran Abs Auto 0.02 X10*3/uL (0.00-0.03); Imm Gran Pct Auto 0.4 % (0.0-0.4); Lymphocytes Absolute Auto 0.5 X10*3/uL (1.2-4.9); Lymphocytes Percent Auto 9.6 % (20-40); MANUAL DIFF FLAG NO; Mean Corpuscular HGB Conc 35.3 g/dl (31.0-35.0); Mean Corpuscular Volume 93.6 fL (80-98); Mean Platelet Volume 8.6 fL (9.4-12.3); Monocytes Absolute Auto 0.1 X10*3/uL (0.1-1.2); Monocytes Percent Auto 2.3 % (2-11); Neutrophils Absolute Auto 4.5 X10*3/uL (2.0-8.3); Neutrophils Percent Auto 87.3 % (45-73); Platelet Count 400 X10*3/uL (160-400); Red Blood Count 4.21 X10*6/uL (4.20-5.50); White Blood Count 5.2 X10*3/uL (4.8-10.8)
[2021-06-17 07:22] LABS: Anion Gap 14 (12-20); Blood Urea Nitrogen 9 mg/dL (9-16); Calcium 9.3 mg/dL (8.4-10.2); Carbon Dioxide 23 mmol/L (22-29); Chloride 99 mmol/L (96-108); Creatinine Clr Calc Pharmacy 71.2; Estimated Glomerular Filt Rate > 60; Glucose Random 103 mg/dL (60-115); Potassium 3.7 mmol/L (3.3-5.1); Sodium 132 mmol/L (135-145)
[2021-06-17] MEDS: 0.9 % Sodium Chloride Flush 3 ML SYRINGE IVFLUSH ×3 (08:47→21:04)
[2021-06-17] MEDS: dilTIAZem HCL CD 120 MG CAP.ER.DEG PO (08:47)
[2021-06-17] MEDS: Apixaban 5 MG TABLET PO (08:47)
[2021-06-17] MEDS: predniSONE 5 MG TABLET PO (08:47)
[2021-06-17] MEDS: Lactulose 20 GM/30 ML SOLUTION 15 GM PO (08:47)
[2021-06-17] MEDS: Hydroxychloroquine Sulfate 200 MG TABLET PO (08:47)
--- NOTE | 2021-06-17 10:57 | P.CNNE_ITS ---
History of Present Illness Data of Consult Service Date: 06/17/21 Primary Care Provider: Unknown Physician HPI Reason for consult: Low back pain 80 years old woman with chronic low back pain who had an MRI of lumbosacral spine done few weeks ago and was supposed to see a neurosurgeon. Her pain continued to worsen to the point that she could not take it anymore in spite of taking pain medicines and came to hospital. In emergency room she was noted to be with full bladder and after urination there was significant postvoid residual, up to 800 cc. A Durbin catheter was placed. When I saw her she was more comfortable with no sign of distress. Her back pain was radiating in legs but also on the right side across the belly. She said that there was no particular activity making it worse and it was there all the time and nothing was making it better. She was feeling weakness in both legs specially in right. [facility] Past Medical History Medical History Essential hypertension Nonrheumatic aortic (valve) stenosis Paroxysmal atrial flutter Psoriatic arthritis Family History Family History Father CVD (cardiovascular disease) Mother No problems noted. Surgical History Surgical History History of hysterectomy History of knee surgery Social History Social History Household Members: None Housing: House Do you presently have visiting nurse or other home services: No Patient Tobacco Use Status: Never used Tobacco e-Cigarette/Vaping Use: Never Used Second Hand Smoke Exposure: No Use of substances other than those prescribed or required for medical reasons: No Currently Displaying Signs/Symptoms of Drug Intoxication Withdrawal: No Any prior treatment program specific to substance use: No Have you been hit, kicked, punched, or otherwise hurt by someone within the past year? If so, by whom?: No Do you feel safe in your current relationship?: No Current Relationship Is there a partner from a previous relationship who is making you feel unsafe now?: No Are you made to feel afraid or neglected: No Advance Directives: No Advance Directives Information Provided: No Advance Directives on File: No Do you have thoughts of harming others: None Do you have a plan to hurt others: No Plan Recently lost weight without trying: No Eating poorly because of decreased appetite: No Nutrition Risks: No Nutritional Risk Patient : No : No Poor oral hygiene: No Meds Allergies Allergy/AdvReac Type Severity Reaction Status Date / Time lisinopril [LISINOPRIL] Allergy Mild COUGH Verified 06/16/21 21:10 Gdhoujq-[id number]-Oyx Reductase Allergy Mild RASH Verified 06/16/21 21:10 Inhibitor [[id number] REDUCTASE INHIBITOR] cephalexin [Keflex] Allergy Unknown GI upset Verified 06/16/21 21:10 and pain hydrochlorothiazide Allergy Unknown unknown Verified 06/16/21 21:10 Sulfa (Sulfonamide Allergy Rash Verified 06/16/21 21:10 Antibiotics) Active Medications: Current Medications Generic Name Dose Route Start Last Admin Trade Name Freq PRN Reason Stop Dose Admin Acetaminophen 650 mg 06/17/21 01:54 Acetaminophen 325 Mg Tablet PO Q6H PRN Pain, Mild (Pain Scale 1-3) Apixaban 5 mg 06/17/21 02:00 06/17/21 08:47 Apixaban 5 Mg Tablet PO 5 mg BID ANT Administration Baclofen 10 mg 06/17/21 01:54 Baclofen 10 Mg Tablet PO QID PRN Pain Diltiazem HCl 120 mg 06/17/21 09:00 06/17/21 08:47 Diltiazem Hcl Cd 120 Mg Cap.Er.Deg PO 120 mg DAILY ANT Administration Protocol Docusate Sodium 100 mg 06/17/21 01:54 Docusate Sodium 100 Mg Capsule PO DAILY PRN Constipation Gabapentin 200 mg 06/17/21 02:00 06/17/21 02:12 Gabapentin 100 Mg Capsule PO Not Given BEDTIME ANT Hydroxychloroquine Sulfate 200 mg 06/17/21 09:00 06/17/21 08:47 Hydroxychloroquine Sulfate 200 Mg Tablet PO 200 mg DAILY ANT Administration Sodium Chloride 1,000 mls @ 80 mls/hr 06/17/21 06:30 06/17/21 06:37 Ns IVCONT 80 mls/hr .[id number] ANT Administration Lactulose 15 gm 06/17/21 09:00 06/17/21 08:47 Lactulose 20 Gm/30 Ml Solution PO 15 gm BID ANT Administration Latanoprost 1 drop 06/17/21 02:00 06/17/21 02:12 Latanoprost 0.005 % Ophth Zaria 2.5 Ml Drops EYE-BOTH Not Given BEDTIME [facility] Morphine Sulfate 4 mg 06/17/21 01:54 Morphine Sulfate 4 Mg/Ml Cartridge IVPUSH Q4H PRN Pain, Severe (Pain Scale 7-10) Protocol Omeprazole 20 mg 06/17/21 06:30 06/17/21 05:55 Omeprazole 20 Mg Capsule.Dr PO 20 mg DAILY@0630 ANT Administration Ondansetron HCl 4 mg 06/17/21 01:54 Ondansetron Hcl 4 Mg/2 Ml Vial IVPUSH Q8H PRN Nausea and Vomiting Pharmacy Consult 1 each 06/16/21 21:06 Consult Rx Perform Med Rec MISCELLANE ONCE PRN Consult order Prednisone 5 mg 06/17/21 09:00 06/17/21 08:47 Prednisone 5 Mg Tablet PO 5 mg DAILY ANT Administration Sodium Chloride 3 ml 06/17/21 08:00 06/17/21 08:47 0.9 % Sodium Chloride Flush 3 Ml Syringe IVFLUSH 3 ml QSHIFT ANT Administration Tramadol HCl 25 mg 06/17/21 06:23 Tramadol Hcl 50 Mg Tablet PO TID PRN Pain, Moderate Home Medications Medication Instructions Recorded Confirmed Last Taken Type baclofen 10 mg tablet 10 mg PO QID PRN 09/12/20 06/16/21 Unknown History gabapentin 100 mg capsule 200 mg PO BEDTIME 09/12/20 06/16/21 Unknown History hydroxychloroquine 200 mg tablet 200 mg PO DAILY 09/12/20 06/16/21 Unknown History latanoprost 0.005 % eye drops 1 drp OPHTHALMIC (EYE) BEDTIME 09/12/20 06/16/21 Unknown History omeprazole 20 mg capsule,delayed 20 mg PO DAILY 09/12/20 06/16/21 Unknown History release prednisone 5 mg tablet 1 tab PO DAILY 06/16/21 06/16/21 Unknown History lactulose 20 gram/30 mL oral 15 g PO BID 06/17/21 06/17/21 Unknown History solution tramadol 50 mg tablet 25 mg PO TID PRN 06/17/21 06/17/21 Unknown History Physical Exam Vital Signs: Vital Signs: Last Vital Signs Temp 97.7 F 06/17/21 07:40 Pulse 84 06/17/21 08:47 Resp 20 06/17/21 07:40 BP 161/77 H 06/17/21 08:47 Pulse Ox 98 06/17/21 07:40 Body Mass Index 23.9 Neuro: Other: She was alert and awake with normal spontaneity of speech fluency comprehension and affect. Right knee had signs of previous replacement and left was arthritic. Knee reflexes were trace ankle reflexes were absent and plantars were flexor. She was able to lift each leg against gravity though had little bit difficulty with right leg. Results Labs CBC & Chem 7: 06/17/21 05:45 06/17/21 05:45 Labs: Short CBC 06/16/21 06/17/21 Range/Units 22:52 05:45 WBC 7.4 5.2 (4.8-10.8) X10*3/uL Hgb 12.7 13.9 (12.0-16.0) g/dl Hct 35.8 L 39.4 (37-47) % Plt Count 340 400 (160-400) X10*3/uL BMP 06/16/21 06/17/21 22:52 05:45 Sodium 125 L 132 L Potassium 4.2 3.7 Chloride 92 L 99 Carbon Dioxide 24 23 BUN 12 9 Creatinine 0.60 0.57 Calcium 9.1 D 9.3 Liver Function 06/16/21 Range/Units 22:52 Total Bilirubin 0.9 (0.0-1.0) mg/dL AST 24 (5-31) U/L ALT 20 (0-31) U/L Alkaline Phosphatase 118 H D (39-117) U/L Albumin 3.7 (3.5-5.0) g/dL Urine 06/16/21 Range/Units 23:11 Urine Color YELLOW Urine Appearance CLEAR Urine pH 7.0 (5.0-8.0) Ur Specific [place] 1.010 (1.005-1.025) Urine Protein NEG (NEG-TRACE) MG/DL Urine Glucose (UA) NEG (NEG) MG/DL MRI of lumbosacral spine reveals severe spondylitic changes with multilevel stenosis especially at L5-S1 and L4-5 with impingement of exiting nerve roots. Assessment and Plan (1) Neurogenic bladder: Status: Acute (2) Lumbar canal stenosis: Status: Acute 80 years old woman with multilevel spondylitic lumbar spinal stenosis resulting in significant impingement on exiting nerve roots at L4-5 and L5-S1. This has resulted in back pain, leg weakness, and neurogenic bladder. A Durbin's catheter was placed last night. I recommend a Neurosurgery consultation and may be relatively urgent surgical decompression to avoid permanent bladder issues. In this regard, maybe a transfer to a hospital with Neurosurgery coverage is appropriate. Procedures Date of Service Date of Service: 06/17/21
--- NOTE | 2021-06-17 13:09 | HO.PM.IMPN ---
Subjective Subjective Date of Service: 06/17/21 Interval History: C/o back pain, RLE weakness Has Durbin for urinary retention Painful hands from psoriatic arthritis Review of Systems Review of Systems: Yes all other systems are reviewed and are negative Physical Exam Vital Signs: Vital Signs: Last Vital Signs Temp 98.5 F 06/17/21 12:00 Pulse 93 06/17/21 12:00 Resp 20 06/17/21 12:00 BP 139/70 06/17/21 12:00 Pulse Ox 99 06/17/21 12:00 Body Mass Index 23.9 Gen: in no acute distress HEENT: sclera anicteric, moist mucus membranes Neck: supple Lungs: clear to auscultation bilaterally Heart: regular rate and rhythm, no murmurs Abd: soft, non-tender, non-distended : Durbin draining clear urine Ext: no edema Skin: warm/well-perfused Neuro: alert and oriented x3, RLE 3/5 strength, no Fabian sign Psych: appropriate affect Objective Data Current Medications Generic Name Dose Route Start Last Admin Trade Name Steveq PRN Reason Stop Dose Admin Acetaminophen 650 mg 06/17/21 01:54 Acetaminophen 325 Mg Tablet PO Q6H PRN Pain, Mild (Pain Scale 1-3) Baclofen 10 mg 06/17/21 01:54 Baclofen 10 Mg Tablet PO QID PRN Pain Diltiazem HCl 120 mg 06/17/21 09:00 06/17/21 08:47 Diltiazem Hcl Cd 120 Mg Cap.Er.Deg PO 120 mg DAILY ANT Administration Protocol Docusate Sodium 100 mg 06/17/21 01:54 Docusate Sodium 100 Mg Capsule PO DAILY PRN Constipation Gabapentin 200 mg 06/17/21 02:00 06/17/21 02:12 Gabapentin 100 Mg Capsule PO Not Given BEDTIME ANT Hydroxychloroquine Sulfate 200 mg 06/17/21 09:00 06/17/21 08:47 Hydroxychloroquine Sulfate 200 Mg Tablet PO 200 mg DAILY ANT Administration Sodium Chloride 1,000 mls @ 80 mls/hr 06/17/21 06:30 06/17/21 06:37 Ns IVCONT 80 mls/hr .[id number] ANT Administration Lactulose 15 gm 06/17/21 09:00 06/17/21 08:47 Lactulose 20 Gm/30 Ml Solution PO 15 gm BID ANT Administration Latanoprost 1 drop 06/17/21 02:00 06/17/21 02:12 Latanoprost 0.005 % Ophth Zaria 2.5 Ml Drops EYE-BOTH Not Given BEDTIME ANT Morphine Sulfate 4 mg 06/17/21 01:54 Morphine Sulfate 4 Mg/Ml Cartridge IVPUSH Q4H PRN Pain, Severe (Pain Scale 7-10) Protocol Omeprazole 20 mg 06/17/21 06:30 06/17/21 05:55 Omeprazole 20 Mg Capsule. PO 20 mg DAILY@0630 ANT Administration Ondansetron HCl 4 mg 06/17/21 01:54 Ondansetron Hcl 4 Mg/2 Ml Vial IVPUSH Q8H PRN Nausea and Vomiting Pharmacy Consult 1 each 06/16/21 21:06 Consult Rx Perform Med Rec MISCELLANE ONCE PRN Consult order Prednisone 5 mg 06/17/21 09:00 06/17/21 08:47 Prednisone 5 Mg Tablet PO 5 mg DAILY ANT Administration Sodium Chloride 3 ml 06/17/21 08:00 06/17/21 08:47 0.9 % Sodium Chloride Flush 3 Ml Syringe IVFLUSH 3 ml QSHIFT ANT Administration Tramadol HCl 25 mg 06/17/21 06:23 Tramadol Hcl 50 Mg Tablet PO TID PRN Pain, Moderate Labs CBC & Chem 7: 06/17/21 05:45 06/17/21 05:45 Labs: Laboratory Results - last 24 hr 06/16/21 06/16/21 06/16/21 21:46 22:52 22:52 MCV 93.7 MCH 33.2 H MCHC 35.5 H RDW 11.2 Plt Count 340 MPV 8.1 L Immature Gran % (Auto) 0.3 Neut % (Auto) 72.9 Lymph % (Auto) 15.1 L [place] % (Auto) 11.1 H Eos % (Auto) 0.1 Baso % (Auto) 0.5 Lymph # (Auto) 1.1 L [place] # (Auto) 0.8 Eos # (Auto) 0.0 Baso # (Auto) 0.0 Abs Immat Gran (auto) 0.02 Absolute Neuts (auto) 5.4 Absolute Nucleated RBC 0.000 Nucleated RBC % (auto) 0.0 ESR PT INR Anion Gap 13 Estim Creat Clear Calc 67.7 Estimated GFR > 60 Random Glucose 100 Calcium 9.1 D Total Bilirubin 0.9 AST 24 ALT 20 Alkaline Phosphatase 118 H D C-Reactive Protein 0.40 Total Protein 5.8 L Albumin 3.7 Urine Color Urine Appearance Urine pH Ur Specific [place] Urine Protein Urine Glucose (UA) Urine Ketones Urine Blood Urine Nitrite Ur Leukocyte Esterase COVID-19 (DARLINE) Negative COVID-19 Clin Com See Note 06/16/21 06/16/21 06/17/21 22:52 23:11 05:45 MCV 93.6 MCH 33.0 MCHC 35.3 H RDW 11.0 Plt Count 400 MPV 8.6 L Immature Gran % (Auto) 0.4 Neut % (Auto) 87.3 H Lymph % (Auto) 9.6 L [place] % (Auto) 2.3 Eos % (Auto) 0.0 Baso % (Auto) 0.4 Lymph # (Auto) 0.5 L [place] # (Auto) 0.1 Eos # (Auto) 0.0 Baso # (Auto) 0.0 Abs Immat Gran (auto) 0.02 Absolute Neuts (auto) 4.5 Absolute Nucleated RBC 0.000 Nucleated RBC % (auto) 0.0 ESR PT 16.5 H INR 1.4 H Anion Gap Estim Creat Clear Calc Estimated GFR Random Glucose Calcium Total Bilirubin AST ALT Alkaline Phosphatase C-Reactive Protein Total Protein Albumin Urine Color YELLOW Urine Appearance CLEAR Urine pH 7.0 Ur Specific [place] 1.010 Urine Protein NEG Urine Glucose (UA) NEG Urine Ketones 5 Urine Blood NEG Urine Nitrite NEG Ur Leukocyte Esterase NEG COVID-19 (DARLINE) COVID-19 Clin Com 06/17/21 06/17/21 05:45 22:52 MCV MCH MCHC RDW Plt Count MPV Immature Gran % (Auto) Neut % (Auto) Lymph % (Auto) [place] % (Auto) Eos % (Auto) Baso % (Auto) Lymph # (Auto) [place] # (Auto) Eos # (Auto) Baso # (Auto) Abs Immat Gran (auto) Absolute Neuts (auto) Absolute Nucleated RBC Nucleated RBC % (auto) ESR 11 PT INR Anion Gap 14 Estim Creat Clear Calc 71.2 Estimated GFR > 60 Random Glucose 103 Calcium 9.3 Total Bilirubin AST ALT Alkaline Phosphatase C-Reactive Protein Total Protein Albumin Urine Color Urine Appearance Urine pH Ur Specific [place] Urine Protein Urine Glucose (UA) Urine Ketones Urine Blood Urine Nitrite Ur Leukocyte Esterase COVID-19 (DARLINE) COVID-19 Clin Com MRI L-spine 06/02/21 Advanced multilevel degenerative spondylotic changes. ? At L3-L4 there is bilateral subarticular stenosis with compression of the traversing right L4 nerve root and mild to moderate compression of the exiting right L3 nerve root. ? At L4-L5 there is severe spinal canal stenosis with thecal sac compression and compression of the traversing L5 nerve roots. Severe right and moderate left neural foraminal stenosis with significant compression of the exiting right L4 nerve root. Left L4 nerve root is mildly compress. ? At L5-S1 there is compression of the bilateral traversing S1 nerve roots. Severe bilateral neural foraminal stenosis is seen with significant compression of both exiting L5 nerve roots. TTE 02/27/21 - The left ventricular systolic function is normal.? The visually estimated ejection fraction is between 55-60%. ? - There is moderate aortic valve stenosis. ? - There is moderate mitral annular calcification.? Assessment and Plan (1) Lumbar canal stenosis: Status: Acute (2) Neurogenic bladder: Status: Acute Assessment and Plan: hospital d#1 80yo F with psoriatic arthritis, AF, moderate aortic stenosis, lumbar spinal stenosis admitted for worsening back pain/RLE weakness/urinary retention/decreased anal sphincter tone concerning for neurogenic bladder # lumbar stenosis # urinary retention/?neurogenic bladder - give 500mg methlyprednisolone IV x1 - discussed with Neurology- recommend neurosurgical intervention - discussed with CHEPE Miranda from [facility] Neurosurgery- obtain MRI C-spine, hold apixaban + give vitamin K, plan decompression at [facility], earliest would be Saturday06/20/21; transfer once we have OR date - prn baclofen, tramadol, morphine - Durbin placed # pAF - continue diltiazem, hold apixaban # psoriatic arthritis - continue hydroxychloroquine, chronic prednisone 5 mg/d # VTE ppx - SCDs # dispo - to [facility] preoperatively Quality Stroke Does the patient have a stroke diagnosis?: No VTE Prior VTE?: No VTE Risk Level:: Medical - moderate - high VTE Device Contraindication: Treatment Not Indicated VTE Drug Contraindication: N/A - Med Ordered
[2021-06-17] MEDS: Acetaminophen 325 MG TABLET 650 MG PO (14:07)
--- NOTE | 2021-06-17 15:17 | MHC.CM.PN ---
Met with patient, delivered IMM. 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 Dtr is HCP. PCP is Dr. Dimas Paulson. Has used [facility] in the past and been to [facility], both are her first choice if needed. DC plan TBD.
[2021-06-17] MEDS: Phytonadione (Vit K1) Oral 10 MG/ML AMPUL PO (15:45)
[2021-06-17] MEDS: Gabapentin 100 MG CAPSULE 200 MG PO (20:38)
[2021-06-17] MEDS: Latanoprost 0.005 % Ophth Sol 2.5 ML DROPS 1 DROP EYE-BOTH (20:39)
[2021-06-17] MEDS: Baclofen 10 MG TABLET PO (20:39)
[2021-06-18] VITALS (7 sets, daily range): BP systolic 113–145; BP diastolic 58–75; PULSE 73–87; RESP 18–20; TEMP 36.6–37; O2SAT 96–100
[2021-06-18] MEDS: Omeprazole 20 MG CAPSULE.DR PO (06:24)
[2021-06-18] MEDS: 0.9 % Sodium Chloride 1,000 ML 80 ML IVCONT (06:24)
[2021-06-18 07:52] LABS: INTERNATIONAL NORM RATIO 1.2 (0.9-1.1); Prothrombin Time 13.3 SEC (9.9-13.0)
[2021-06-18 08:04] LABS: Anion Gap 13 (12-20); Blood Urea Nitrogen 13 mg/dL (9-16); Carbon Dioxide 20 mmol/L (22-29); Chloride 106 mmol/L (96-108); Estimated Glomerular Filt Rate > 60; Glucose Random 98 mg/dL (60-115); Potassium 3.7 mmol/L (3.3-5.1); Sodium 135 mmol/L (135-145)
[2021-06-18] MEDS: 0.9 % Sodium Chloride Flush 3 ML SYRINGE IVFLUSH ×3 (08:28→21:41)
[2021-06-18] MEDS: predniSONE 5 MG TABLET PO (08:28)
[2021-06-18] MEDS: dilTIAZem HCL CD 120 MG CAP.ER.DEG PO (08:28)
[2021-06-18] MEDS: traMADoL HCL 50 MG TABLET 25 MG PO ×2 (08:36→21:27)
--- NOTE | 2021-06-18 11:45 | P.PNIM_ITS ---
Subjective Subjective Date of Service: 06/18/21 Interval History: Back pain, RLE weakness. No chest pain or palpitations. Review of Systems Review of Systems: Yes all other systems are reviewed and are negative Physical Exam Vital Signs: Vital Signs: Last Vital Signs Temp 97.8 F 06/18/21 07:41 Pulse 73 06/18/21 07:41 Resp 20 06/18/21 07:41 BP 145/69 H 06/18/21 08:28 Pulse Ox 99 06/18/21 07:41 Body Mass Index 23.9 Gen: in no acute distress HEENT: sclera anicteric, moist mucus membranes Neck: supple Lungs: clear to auscultation bilaterally Heart: regular rate and rhythm, 2/6 systolic murmur at base Abd: soft, non-tender, non-distended : Durbin draining clear urine Ext: no edema Skin: warm/well-perfused Neuro: alert and oriented x3, RLE 3/5 strength, no Fabian sign Psych: appropriate affect Objective Data Current Medications Generic Name Dose Route Start Last Admin Trade Name Steveq PRN Reason Stop Dose Admin Acetaminophen 650 mg 06/17/21 01:54 06/17/21 14:07 Acetaminophen 325 Mg Tablet PO 650 mg Q6H PRN Administration Pain, Mild (Pain Scale 1-3) Baclofen 10 mg 06/17/21 01:54 06/17/21 20:39 Baclofen 10 Mg Tablet PO 10 mg QID PRN Administration Pain Diltiazem HCl 120 mg 06/17/21 09:00 06/18/21 08:28 Diltiazem Hcl Cd 120 Mg Cap.Er.Deg PO 120 mg DAILY ANT Administration Protocol Docusate Sodium 100 mg 06/17/21 01:54 Docusate Sodium 100 Mg Capsule PO DAILY PRN Constipation Gabapentin 200 mg 06/17/21 02:00 06/17/21 20:38 Gabapentin 100 Mg Capsule PO 200 mg BEDTIME ANT Administration Hydroxychloroquine Sulfate 100 mg 06/18/21 21:00 Hydroxychloroquine Sulfate 200 Mg Tablet PO BID ANT Lactulose 15 gm 06/17/21 09:00 06/18/21 08:28 Lactulose 20 Gm/30 Ml Solution PO Not Given BID ANT Latanoprost 1 drop 06/17/21 02:00 06/17/21 20:39 Latanoprost 0.005 % Ophth Zaria 2.5 Ml Drops EYE-BOTH 1 drop BEDTIME ANT Administration Morphine Sulfate 4 mg 06/17/21 01:54 Morphine Sulfate 4 Mg/Ml Cartridge IVPUSH Q4H PRN Pain, Severe (Pain Scale 7-10) Protocol Omeprazole 20 mg 06/17/21 06:30 06/18/21 06:24 Omeprazole 20 Mg Capsule.Dr PO 20 mg DAILY@0630 ANT Administration Ondansetron HCl 4 mg 06/17/21 01:54 Ondansetron Hcl 4 Mg/2 Ml Vial IVPUSH Q8H PRN Nausea and Vomiting Pharmacy Consult 1 each 06/16/21 21:06 Consult Rx Perform Med Rec MISCELLANE ONCE PRN Consult order Prednisone 5 mg 06/19/21 09:00 Prednisone 5 Mg Tablet PO DAILY@0900 [facility] Prednisone 2.5 mg 06/18/21 21:00 Prednisone 2.5 Mg Tablet PO DAILY@2100 [facility] Sodium Chloride 3 ml 06/17/21 08:00 06/18/21 08:28 0.9 % Sodium Chloride Flush 3 Ml Syringe IVFLUSH 3 ml QSHIFT [facility] Administration Sodium Chloride 1 spray 06/18/21 10:23 Sodium Chloride 0.65 % Nasal 44 Ml Sprbtl NOSTRIL-B Q1H PRN irritation Tramadol HCl 25 mg 06/18/21 21:00 Tramadol Hcl 50 Mg Tablet PO BID [facility] Labs CBC & Chem 7: 06/17/21 05:45 06/18/21 06:46 Labs: Laboratory Results - last 24 hr 06/18/21 06/18/21 06:46 06:46 PT 13.3 H INR 1.2 H Anion Gap 13 Estim Creat Clear Calc 70.0 Estimated GFR > 60 Random Glucose 98 Calcium 9.0 Assessment and Plan (1) Lumbar canal stenosis: Status: Acute (2) Neurogenic bladder: Status: Acute Assessment and Plan: hospital d#2 80yo F with psoriatic arthritis, AF, moderate aortic stenosis, lumbar spinal stenosis admitted for worsening back pain/RLE weakness/urinary retention/decreased anal sphincter tone concerning for neurogenic bladder # lumbar stenosis # urinary retention/?neurogenic bladder - given 500mg methlyprednisolone IV x1 06/17/21 - Neurology consulted: recommend neurosurgical intervention - discussed with CHEPE Miranda from [facility] Neurosurgery yesterday; recommended MRI C-spine [doing today]; held apixaban 06/17/21 + gave vitamin K. Plan decompression at [facility], earliest would be Saturday06/20/21; transfer pre- operatively, discuss with CHEPE Miranda - prn baclofen, tramadol, morphine - Durbin placed # pAF - continue diltiazem, hold apixaban as above # psoriatic arthritis - continue hydroxychloroquine, chronic prednisone 5 mg qam + 2.5 mg qpm # VTE ppx - SCDs # dispo - to [facility] preoperatively Quality Stroke Does the patient have a stroke diagnosis?: No VTE Prior VTE?: No VTE Risk Level:: Medical - moderate - high VTE Device Contraindication: Treatment Not Indicated VTE Drug Contraindication: N/A - Med Ordered
[2021-06-18] MEDS: Acetaminophen 325 MG TABLET 650 MG PO (12:17)
[2021-06-18] MEDS: Phytonadione (Vit K1) 2.5 MG in 0.9 % Sodium Chloride 50 ML 50.25 MG IV ×2 (12:56→17:03)
[2021-06-18] MEDS: Gabapentin 100 MG CAPSULE 200 MG PO (21:24)
[2021-06-18] MEDS: Hydroxychloroquine Sulfate 200 MG TABLET 100 MG PO (21:26)
[2021-06-18] MEDS: predniSONE 2.5 MG TABLET PO (21:27)
[2021-06-18] MEDS: Lactulose 20 GM/30 ML SOLUTION 15 GM PO (21:28)
[2021-06-18] MEDS: Latanoprost 0.005 % Ophth Sol 2.5 ML DROPS 1 DROP EYE-BOTH (21:40)
[2021-06-19] VITALS (7 sets, daily range): BP systolic 120–182; BP diastolic 57–81; PULSE 74–86; RESP 18–20; TEMP 36.4–36.9; O2SAT 98–99
[2021-06-19] MEDS: Phytonadione (Vit K1) 2.5 MG in 0.9 % Sodium Chloride 50 ML 50.25 MG IV ×2 (00:11→09:49)
[2021-06-19] MEDS: Omeprazole 20 MG CAPSULE.DR PO (06:13)
[2021-06-19 07:30] LABS: INTERNATIONAL NORM RATIO 1.1 (0.9-1.1); Prothrombin Time 12.2 SEC (9.9-13.0)
[2021-06-19 07:39] LABS: Hematocrit 34.5 % (37-47); Hemoglobin 11.6 g/dl (12.0-16.0); Mean Corpuscular HGB Conc 33.6 g/dl (31.0-35.0); Mean Corpuscular Hemoglobin 32.9 pg (27.0-33.0); Mean Corpuscular Volume 97.7 fL (80-98); Mean Platelet Volume 8.8 fL (9.4-12.3); Platelet Count 355 X10*3/uL (160-400); Red Blood Count 3.53 X10*6/uL (4.20-5.50); Red Cell Distribution Width 11.6 % (11.0-16.0); White Blood Count 7.7 X10*3/uL (4.8-10.8)
[2021-06-19 08:15] LABS: Anion Gap 13 (12-20); Blood Urea Nitrogen 22 mg/dL (9-16); Calcium 8.4 mg/dL (8.4-10.2); Carbon Dioxide 21 mmol/L (22-29); Chloride 105 mmol/L (96-108); Creatinine Clr Calc Pharmacy 64.4; Estimated Glomerular Filt Rate > 60; Glucose Random 84 mg/dL (60-115); Sodium 135 mmol/L (135-145)
[2021-06-19] MEDS: 0.9 % Sodium Chloride Flush 3 ML SYRINGE IVFLUSH ×2 (09:49→17:26)
[2021-06-19] MEDS: traMADoL HCL 50 MG TABLET 25 MG PO ×2 (10:20→20:27)
[2021-06-19] MEDS: Hydroxychloroquine Sulfate 200 MG TABLET 100 MG PO ×2 (10:33→20:26)
[2021-06-19] MEDS: predniSONE 5 MG TABLET PO (10:33)
[2021-06-19] MEDS: Lactulose 20 GM/30 ML SOLUTION 15 GM PO ×2 (10:35→20:28)
[2021-06-19] MEDS: dilTIAZem HCL CD 120 MG CAP.ER.DEG PO (10:37)
[2021-06-19] MEDS: Baclofen 10 MG TABLET PO (10:52)
--- NOTE | 2021-06-19 11:05 | MHC.CM.PN ---
Per [facility] discussion, the goal is for Patient to transfer to [facility] today.
[2021-06-19] MEDS: Acetaminophen 325 MG TABLET 650 MG PO (13:34)
--- NOTE | 2021-06-19 14:55 | PM.IMPN ---
Progress Note: A&P (1) Lumbar canal stenosis: Status: Acute Assessment and Plan: 80yo F with psoriatic arthritis, AF, moderate aortic stenosis, lumbar spinal stenosis admitted for worsening back pain/RLE weakness/urinary retention/decreased anal sphincter tone concerning for neurogenic bladder # lumbar stenosis # urinary retention/?neurogenic bladder - given 500mg methlyprednisolone IV x1 06/17/21 - Neurology consulted: recommend neurosurgical intervention - Discussed with CHEPE Oviedo ([phone]). The plan was to transfer the patient to [facility] for urgent decompression. Unfortunately there is no bed availability and there is a question as to whether the patient is abl to go home and see neurosurg in the office as this may make the process of her getting the procedure faster. Apixaban still on hold PT to see the patient for ambulatory evaluation - prn baclofen, tramadol, morphine - Stoddard placed # pAF - continue diltiazem, hold apixaban as above # psoriatic arthritis - continue hydroxychloroquine, chronic prednisone 5 mg qam + 2.5 mg qpm # VTE ppx - SCDs # dispo - to [facility] preoperatively Subjective Subjective Date of Service: 06/19/21 Review of Systems Follow up neurogenic bladder Still with pain to her back still with stoddard Physical Exam Vital Signs: Vital Signs: Last Vital Signs Temp 97.6 F 06/19/21 11:32 Pulse 84 06/19/21 11:32 Resp 20 06/19/21 11:32 BP 182/81 H 06/19/21 11:32 Pulse Ox 99 06/19/21 11:32 Body Mass Index 23.9 Appearing in no acute distress lung sounds are clear to auscultation heart regular rate rhythm, clear S1, S2 positive bowel sounds, abdomen is soft, nontender neuro patient is alert x3, no focal deficits Objective Data Current Medications Generic Name Dose Route Start Last Admin Trade Name Freq PRN Reason Stop Dose Admin Acetaminophen 650 mg 06/17/21 01:54 06/19/21 13:34 Acetaminophen 325 Mg Tablet PO 650 mg Q6H PRN Administration Pain, Mild (Pain Scale 1-3) Baclofen 10 mg 06/17/21 01:54 06/19/21 10:52 Baclofen 10 Mg Tablet PO 10 mg QID PRN Administration Pain Diltiazem HCl 120 mg 06/17/21 09:00 06/19/21 10:37 Diltiazem Hcl Cd 120 Mg Cap.Er.Deg PO 120 mg DAILY ANT Administration Protocol Docusate Sodium 100 mg 06/17/21 01:54 Docusate Sodium 100 Mg Capsule PO DAILY PRN Constipation Gabapentin 200 mg 06/17/21 02:00 06/18/21 21:24 Gabapentin 100 Mg Capsule PO 200 mg BEDTIME ANT Administration Hydroxychloroquine Sulfate 100 mg 06/18/21 21:00 06/19/21 10:33 Hydroxychloroquine Sulfate 200 Mg Tablet PO 100 mg BID ANT Administration Lactulose 15 gm 06/17/21 09:00 06/19/21 10:35 Lactulose 20 Gm/30 Ml Solution PO 15 gm BID ANT Administration Latanoprost 1 drop 06/17/21 02:00 06/18/21 21:40 Latanoprost 0.005 % Ophth Zaria 2.5 Ml Drops EYE-BOTH 1 drop BEDTIME ANT Administration Morphine Sulfate 4 mg 06/17/21 01:54 Morphine Sulfate 4 Mg/Ml Cartridge IVPUSH Q4H PRN Pain, Severe (Pain Scale 7-10) Protocol Omeprazole 20 mg 06/17/21 06:30 06/19/21 06:13 Omeprazole 20 Mg Capsule.Dr PO 20 mg DAILY@0630 ANT Administration Ondansetron HCl 4 mg 06/17/21 01:54 Ondansetron Hcl 4 Mg/2 Ml Vial IVPUSH Q8H PRN Nausea and Vomiting Pharmacy Consult 1 each 06/16/21 21:06 Consult Rx Perform Med Rec MISCELLANE ONCE PRN Consult order Prednisone 5 mg 06/19/21 09:00 06/19/21 10:33 Prednisone 5 Mg Tablet PO 5 mg DAILY@0900 ANT Administration Prednisone 2.5 mg 06/18/21 21:00 06/18/21 21:27 Prednisone 2.5 Mg Tablet PO 2.5 mg DAILY@2100 ANT Administration Sodium Chloride 3 ml 06/17/21 08:00 06/19/21 09:49 0.9 % Sodium Chloride Flush 3 Ml Syringe IVFLUSH 3 ml QSHIFT ANT Administration Sodium Chloride 1 spray 06/18/21 10:23 Sodium Chloride 0.65 % Nasal 44 Ml Sprbtl NOSTRIL-B Q1H PRN irritation Tramadol HCl 25 mg 06/18/21 21:00 06/19/21 10:20 Tramadol Hcl 50 Mg Tablet PO 25 mg BID ANT Administration Labs CBC & Chem 7: 06/19/21 05:51 06/19/21 05:51 Labs: Laboratory Results - last 24 hr 06/19/21 06/19/21 06/19/21 05:51 05:51 05:51 MCV 97.7 MCH 32.9 MCHC 33.6 RDW 11.6 Plt Count 355 MPV 8.8 L Absolute Nucleated RBC 0.000 Nucleated RBC % (auto) 0.0 PT 12.2 INR 1.1 Anion Gap 13 Estim Creat Clear Calc 64.4 Estimated GFR > 60 Random Glucose 84 Calcium 8.4 D Quality Stroke Does the patient have a stroke diagnosis?: No VTE Prior VTE?: No VTE Risk Level:: Medical - moderate - high VTE Device Contraindication: Treatment Not Indicated VTE Drug Contraindication: N/A - Med Ordered
--- NOTE | 2021-06-19 15:06 | PM.DS ---
DS: Providers Provider Date of Service: 06/19/21 Date of admission: 06/17/21 01:48 Date of discharge: 06/20/21 Primary care physician: Unknown Physician Consults: 06/17/21 01:54 Consult to Neurology Routine Consulting Provider: [facility] Reason for consultation: leg weakness and neurogenic bladder Discharging clinician: Christa Allen DS: Diagnosis Discharge Diagnosis (1) Lumbar canal stenosis: Status: Acute DS: Medications Discharge Medications Home Medications: Home Medications Medication Instructions Recorded Confirmed baclofen 10 mg tablet 10 mg PO QID PRN 09/12/20 06/16/21 gabapentin 100 mg capsule 200 mg PO BEDTIME 09/12/20 06/16/21 hydroxychloroquine 200 mg tablet 200 mg PO DAILY 09/12/20 06/16/21 latanoprost 0.005 % eye drops 1 drp OPHTHALMIC (EYE) BEDTIME 09/12/20 06/16/21 omeprazole 20 mg capsule,delayed 20 mg PO DAILY 09/12/20 06/16/21 release prednisone 5 mg tablet 1 tab PO DAILY 06/16/21 06/16/21 lactulose 20 gram/30 mL oral 15 g PO BID 06/17/21 06/17/21 solution tramadol 50 mg tablet 25 mg PO TID PRN 06/17/21 06/17/21 cholecalciferol (vitamin D3) 50 50 mcg PO DAILY 06/19/21 06/19/21 mcg (2,000 unit) tablet (Vitamin D3) Previous Rx's Medication Instructions Recorded diltiazem HCl 120 mg 120 mg PO DAILY #90 cap 03/07/21 capsule,extended release 24 hr apixaban 5 mg tablet (Eliquis) 5 mg PO BID 90 Days #180 tab 05/17/21 DS: Summary Hospital Course Hospital Course: HP as per admitting provider With past medical history of HTN, nonrheumatic aortic stenosis, paroxysmal a flutter, psoriatic arthritis, presents to the hospital with complaints of worsening low back pain.? Patient was seen in the hospital on 06/09 for the same had an MRI done in the ED which showed advanced multilevel degenerative spondylotic changes, L3-L4 bilateral subarticular stenosis with compression of the traversing right foot L4 nerve root and mild to moderate compression of the existing right L3 nerve root, at L4-L5 level there is severe spinal canal stenosis with the thecal sac compression and compression of the traversing L5 nerve roots.? Severe right and moderate left neural foraminal stenosis with significant compression of the existing right L4 nerve root.? Left L4 nerve root is mildly compressed. Patient returns today stating that her low back pain has significantly been painful for her today, she has also weakness in her bilateral legs worse on the right and now has difficulty even ambulating due to the weakness.? Patient reports that her right leg has chronically and for many years been week but today's even weaker.? urinary tension all day today with inability to empty her bladder.? Denies any loss of bowel control.? Denies any fever or chills, no chest pain or shortness of breath, no abdominal pain nausea or vomiting, no diarrhea constipation, no urinary symptoms and no lower extremity edema On arrival to the ED patient hemodynamically stable with no significant abnormal vitals. Labs are significant for WBC count 7.4, PT of 16.5, INR of 1.4, sodium of 125, alk-phos of 118, UA negative, COVID-19 negative. Case was discussed with Neurology, patient was given 500 mg of Solu-Medrol will be admitted further manage Patient initially presented with worsening back pain and weakness to both of her legs and difficulty ambulating. She also reported the inability to empty her bladder and had decreased bladder tone. Lumbar spine MRI showed lumbar canal stenosis with nerve compression. She was seen and evaluated by Neurology and was given 500 mg of IV Solu-Medrol and Durbin catheter was placed. She was seen by Physical therapy and found to have multiple functional limitations including mobility, transferring and gait disturbances. The recommendation From Neurology was for transfer to a tertiary facility with neuro surgical capability due to multilevel spondylitic lumbar spinal stenosis with significant impingement on nerve roots L4-5 and L5-S1. Patient will be transferred to [facility] at 05:00 on 06/20 for urgent surgical decompression. She will be NPO after midnight, her last dose of Eliquis appears to be on 06/17.The patient and her family are in agreement with this plan. Time Spent with Patient Time attestation: Total time spent providing and/or coordinating discharge services: Discharge coordination time: Greater than 30 minutes Quality: Stroke Does the patient have a stroke diagnosis?: No Physical Exam Vital Signs: Vital Signs: Last Vital Signs Temp 97.6 F 06/19/21 11:32 Pulse 84 06/19/21 11:32 Resp 20 06/19/21 11:32 BP 182/81 H 06/19/21 11:32 Pulse Ox 99 06/19/21 11:32 Body Mass Index 23.9 Appearing in no acute distress head is normocephalic atraumatic eyes pupils are PERRLA sclera is anicteric mouth throat mucous membranes are intact and moist neck is supple no lymphadenopathy, no JVD noted lung sounds are clear to auscultation heart regular rate rhythm, clear S1, S2 positive bowel sounds, abdomen is soft, nontender Durbin catheter present neuro patient is alert x3, weakness to lower extremity with good sensation DS: Data Data Completed and Pending Labs on day of discharge: Laboratory Results - last 24 hr 06/19/21 06/19/21 06/19/21 05:51 05:51 05:51 WBC 7.7 RBC 3.53 L Hgb 11.6 L Hct 34.5 L MCV 97.7 MCH 32.9 MCHC 33.6 RDW 11.6 Plt Count 355 MPV 8.8 L Absolute Nucleated RBC 0.000 Nucleated RBC % (auto) 0.0 PT 12.2 INR 1.1 Sodium 135 Potassium 4.0 Chloride 105 Carbon Dioxide 21 L Anion Gap 13 BUN 22 H D Creatinine 0.63 Estim Creat Clear Calc 64.4 Estimated GFR > 60 Random Glucose 84 Calcium 8.4 D Discharge Plan Discharge Anticipated Discharge Date/Time: 06/20/21 05:00 Patient Disposition: Xfer Acute Care Hospital Discharge Diagnosis: multilevel spondylitic lumbar spinal stenosis resulting in significant impingement on exiting nerve roots at L4-5 and L5-S1 Referrals: Physician,Unknown [Primary Care Provider] - 1 Week Discharge Medications: Continued prednisone 5 mg tablet 1 tab PO DAILY RF: 0 tramadol 50 mg Tablet 25 mg PO TID PRN (Reason: Pain, Moderate) RF: 0 lactulose 20 gram/30 mL Solution 15 g PO BID RF: 0 cholecalciferol (vitamin D3) [Vitamin D3] 50 mcg (2,000 unit) Tablet 50 mcg PO DAILY RF: 0 omeprazole 20 mg capsule,delayed release(DR/EC) 20 mg PO DAILY RF: 0 baclofen 10 mg tablet 10 mg PO QID PRN (Reason: Pain) RF: 0 gabapentin 100 mg capsule 200 mg PO BEDTIME RF: 0 latanoprost 0.005 % drops 1 drp ophthalmic (eye) BEDTIME RF: 0 hydroxychloroquine 200 mg tablet 200 mg PO DAILY RF: 0 diltiazem HCl 120 mg capsule,extended release 24hr 120 mg PO DAILY Qty: 90 RF: 4 Discontinued Eliquis 5 mg tablet 5 mg PO BID 90 Days Qty: 180 RF: 3 Discharge Orders: Discharge Order (Routine); Ordered 06/19/21 Ordered By: Christa Allen Diet: advance to usual diet Activity on Discharge: Bedrest Stand Alone Forms: Patient Portal Discharge page Care Plan Goals: Surgical intervention to prevent further bladder damage Health Concerns: Multilevel spondylitic lumbar spinal stenosis resulting in significant impingement on exiting nerve roots at L4-5 and L5-S1 Plan of Treatment: Transfer to [facility] for urgent surgical decompression [place] to [place] at 0500 on 06/20/21 [place] [facility] [place] at [facility] Assessment: See discharge summary
[2021-06-19] MEDS: Lidocaine 4 % Patch ADH..PATCH 1 PATCH TRANSDERMA (17:27)
[2021-06-19] MEDS: Gabapentin 100 MG CAPSULE 200 MG PO (20:26)
[2021-06-19] MEDS: predniSONE 2.5 MG TABLET PO (20:27)
[2021-06-19] MEDS: Latanoprost 0.005 % Ophth Sol 2.5 ML DROPS 1 DROP EYE-BOTH (20:35)
[2021-06-20 04:00] VITALS: BP 139/94; PULSE 88; RESP 18; TEMP 36.5; O2SAT 100
--- NOTE | 2021-06-20 05:37 | MHC.INPTTRAN ---
Called [facility] at 0400 and spoke with nursing cold storage supervisor who said to call back at 0530 to the Pre-op area because no one is in from that unit until then. Notified nursing cold storage supervisor that [place] [facility] [place] at 0430, she understands. Called [facility] back at 0530, spoke with nurse Rosenthal from Pre-Op area and gave report.
== END 2021-06-20 04:45 | disposition short-term general hospital (02) | DRG 552 ==
LOC: HO.ED 06-17 01:18 → HO.EDOVER 06-17 01:54 → HO.IMC 06-17 02:27
PROVIDERS: Family Medicine; Admitting Provider Internal Medicine; Emergency Provider Student in an Organized Health Care Education/Training Program; Visit Provider Family Medicine
DX: M48.061 Spinal stenosis, lumbar region without neurogenic claudication (principal); N31.9 Neuromuscular dysfunction of bladder, unspecified; L40.50 Arthropathic psoriasis, unspecified; I48.0 Paroxysmal atrial fibrillation; Z20.822 Contact with and (suspected) exposure to COVID-19; Z88.2 Allergy status to sulfonamides; Z79.51 Long term (current) use of inhaled steroids; Z79.891 Long term (current) use of opiate analgesic; Z79.899 Other long term (current) drug therapy
CPT/HCPCS: 36415; 51798; 72141; 80048; 80053; 81003; 85025; 85027; 85610; 85652; 86140; 87635; 96365; 97162; 99285; J2930; J3430

== ENCOUNTER 2021-09-20 13:40 | Emergency (ER) | payer MEDICARE, SELFPAY ==
--- NOTE | ~2021-09-20 | MR_ITS ---
EXAMINATION: MR LUMBAR SPINE WITHOUT AND WITH CONTRAST CLINICAL INFORMATION: Radicular pain and weakness. COMPARISON: Bar spine MRI from 06/02/2021. TECHNIQUE: MRI of the lumbar spine was obtained using routine sequences without and following the administration of 7 mL of Gadavist intravenous contrast. FINDINGS: Moderate left convex curvature of the lumbar spine. Moderate left lateral translation of L4 on L5. Mild degenerative grade 1 anterolisthesis of L1 on L2 and L4 on L5. Depression of the inferior endplate of L1 is new compared to exam from 06/02/2021 with 25% loss of anterior body height. Persistent marrow edema/enhancement along the inferior endplate of L1. Advanced degenerative disc disease at L1-L2 and from L3-S1. Moderate degenerative disc disease at L2-L3. Associated mixed Modic type discogenic endplate changes including Modic type I discogenic edema at L1-L2 and from L3-S1. No additional suspicious marrow edema. The remaining vertebral body heights are well-maintained. Changes of right-sided hemilaminectomy at L4-L5. There is a peripherally enhancing fluid collection posterior to the laminectomy bed in the subcutaneous soft tissues of the back at this level, measuring 5.8 x 2.2 x 6 cm. There is a thin connection of this collection that courses along the right lateral aspect of L4 spinous process. The conus medullaris terminates at the level of L1-L2. The distal spinal cord is normal in appearance. No additional abnormal contrast enhancement. No significant abnormalities of the paraspinal musculature. There is a 0.9 cm T2 hyperintense cyst associated with the interpolar region of the left kidney. Otherwise, limited evaluation of the intra-abdominal structures without significant abnormalities. The abdominal aorta is of normal contour and caliber. AXIAL SPINAL LEVELS: L1-L2: Moderate diffuse disc bulge with posterior osseous ridging. There is moderate bilateral facet joint arthropathy. There is moderate left and mild right neural foraminal stenosis. There is narrowing of the subarticular zones with mild spinal canal stenosis centrally. L2-L3: Moderate diffuse disc bulge. There is moderate right and mild left facet joint arthropathy. There is moderate right and mild left neural foraminal stenosis. There is stenosis of the right subarticular zone with no overt spinal canal stenosis centrally. L3-L4: Moderate diffuse disc bulge with posterior osseous ridging. There is severe right and moderate left facet joint arthropathy. There is moderate to severe right and moderate left neural foraminal stenosis. There is stenosis of the right central reticular zone with no overt spinal canal stenosis centrally. L4-L5: Moderate diffuse disc bulge with posterior osseous ridging. There is moderate to severe bilateral facet joint arthropathy. There is severe bilateral neural foraminal stenosis. There is stenosis of the subarticular zones with no overt spinal canal stenosis centrally. L5-S1: Moderate diffuse disc bulge with posterior osseous ridging and superimposed shallow central disc protrusion. There is severe left and moderate right facet joint arthropathy. There is moderate to severe bilateral neural foraminal stenosis. There is stenosis of the subarticular zones with mild spinal canal stenosis centrally. MR/MR lumbar spine wo/w con IMPRESSION: 1. Compression over many of the inferior endplate of L1 is new compared to 06/02/2021. 2. 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 Most notably, there are mild spinal canal stenoses at L1-L2 and L5-S1. Narrowing/stenoses of the subarticular zones at all levels from L1-S1. Moderate to severe neural foraminal stenoses at all lumbar levels. 3. Changes of right-sided L4-L5 hemilaminectomy. Nonspecific peripherally enhancing fluid collection within the subcutaneous tissues posterior to the hemilaminectomy bed. No abnormal enhancement within the spinal canal.
[2021-09-20 13:48] VITALS: BP 140/80; PULSE 80
--- NOTE | 2021-09-20 14:04 | ED_ITS ---
HPI - Back Pain/Injury General Chief Complaint: Back Pain/Injury <Tony Louis MD - Last Filed: 09/20/21 14:21> Stated Complaint: SEVERE BACK PAIN <Tony Louis MD - Last Filed: 09/20/21 14:21> Time Seen by Provider: 09/20/21 14:03 <Tony Louis MD - Last Filed: 09/20/21 14:21> Source: patient <Tony Louis MD - Last Filed: 09/20/21 14:21> Mode of arrival: ambulatory <Tony Louis MD - Last Filed: 09/20/21 14:21> Limitations: no limitations <Tony Louis MD - Last Filed: 09/20/21 14:21> History of Present Illness HPI Narrative: Patient had cervical surgery in May and lumbar surgery in June. Now with right leg pain radiating down her leg. Pain is worse in that she can't walk. Patient is in so much pain, much worse since she had the surgery. <Tony Louis MD - Last Filed: 09/20/21 14:21> MD elicited complaint: back pain <Tony Louis MD - Last Filed: 09/20/21 14:21> Related Data Home Medications: Home Medications Medication Instructions Recorded Confirmed baclofen 10 mg tablet 10 mg PO QID PRN 09/12/20 06/16/21 gabapentin 100 mg capsule 200 mg PO BEDTIME 09/12/20 06/16/21 hydroxychloroquine 200 mg tablet 200 mg PO DAILY 09/12/20 06/16/21 latanoprost 0.005 % eye drops 1 drp OPHTHALMIC (EYE) BEDTIME 09/12/20 06/16/21 omeprazole 20 mg capsule,delayed 20 mg PO DAILY 09/12/20 06/16/21 release prednisone 5 mg tablet 1 tab PO DAILY 06/16/21 06/16/21 lactulose 20 gram/30 mL oral 15 g PO BID 06/17/21 06/17/21 solution tramadol 50 mg tablet 25 mg PO TID PRN 06/17/21 06/17/21 cholecalciferol (vitamin D3) 50 50 mcg PO DAILY 06/19/21 06/19/21 mcg (2,000 unit) tablet (Vitamin D3) Previous Rx's Medication Instructions Recorded diltiazem HCl 120 mg 120 mg PO DAILY #90 cap 03/07/21 capsule,extended release 24 hr <Tony Louis MD - Last Filed: 09/20/21 14:21> Allergies/Adverse Reactions: Allergies Allergy/AdvReac Type Severity Reaction Status Date / Time lisinopril [LISINOPRIL] Allergy Mild COUGH Verified 06/16/21 21:10 [id number] Reductase Allergy Mild RASH Verified 06/16/21 21:10 Inhibitor [[id number] REDUCTASE INHIBITOR] cephalexin [Keflex] Allergy Unknown GI upset Verified 06/16/21 21:10 and pain hydrochlorothiazide Allergy Unknown unknown Verified 06/16/21 21:10 Sulfa (Sulfonamide Allergy Rash Verified 06/16/21 21:10 Antibiotics) <Tony Louis MD - Last Filed: 09/20/21 14:21> Review of Systems Constitutional: Constitutional: Reports no additional constitutional complaints <Tony Louis MD - Last Filed: 09/20/21 14:21> Eyes: Eyes: Reports no additional eye complaints <Tony Louis MD - Last Filed: 09/20/21 14:21> ENT: Denies dizziness <Tony Louis MD - Last Filed: 09/20/21 14:21> Cardiovascular: Cardiovascular: Reports no additional cardiovascular complaints <Tony Louis MD - Last Filed: 09/20/21 14:21> Respiratory: Respiratory: Reports as per HPI <Tony Louis MD - Last Filed: 09/20/21 14:21> Gastrointestinal: Gastrointestinal: Reports no additional gastrointestinal complaints <Tony Louis MD - Last Filed: 09/20/21 14:21> Genitourinary: Genitourinary: Reports no additional female genitourinary complaints <Tony Louis MD - Last Filed: 09/20/21 14:21> Musculoskeletal: Musculoskeletal: Reports no additional musculoskeletal complaints <Tony Louis MD - Last Filed: 09/20/21 14:21> Integumentary/Breasts: Skin/Breast: Denies rash <Tony Louis MD - Last Filed: 09/20/21 14:21> Neurologic: Reports system reviewed and no additional complaints, except as documented, Denies dizziness and Denies Sensory deficit (Neuro) <Tony Louis MD - Last Filed: 09/20/21 14:21> Psychiatric: Psychiatric: Denies anxiety <Tony Louis MD - Last Filed: 09/20/21 14:21> FOR[facility]LY [facility] Past Medical History Medical History: Medical History Essential hypertension Nonrheumatic aortic (valve) stenosis Paroxysmal atrial flutter Psoriatic arthritis <Tony Louis MD - Last Filed: 09/20/21 14:21> Surgical History: Surgical History History of hysterectomy History of knee surgery <Tony Louis MD - Last Filed: 09/20/21 14:21> Family History Family History: Family History Father CVD (cardiovascular disease) Mother No problems noted. <Tony Louis MD - Last Filed: 09/20/21 14:21> Social History Social History: Social History Household Members: None Housing: House Do you presently have visiting nurse or other home services: No Alcohol intake: never Patient Tobacco Use Status: Never used Tobacco e-Cigarette/Vaping Use: Never Used Second Hand Smoke Exposure: No Use of substances other than those prescribed or required for medical reasons: No Advance Directives: Yes Advance Directives Information Provided: No Advance Directives on File: No service: No Current occupational status: retired <Tony Louis MD - Last Filed: 09/20/21 14:21> Physical Exam Vital Signs: Vital Signs: Last Vital Signs Temp 98.6 F 09/20/21 14:23 Pulse 78 09/20/21 14:23 Resp 18 09/20/21 14:23 BP 174/77 H 09/20/21 14:23 Pulse Ox 99 09/20/21 14:23 BMI result Body Mass Index 24.9 <Tony Louis MD - Last Filed: 09/20/21 14:21> Vital Signs: Last Vital Signs Temp 98.6 F 09/20/21 14:23 Pulse 78 09/20/21 14:23 Resp 18 09/20/21 14:23 BP 174/77 H 09/20/21 14:23 Pulse Ox 99 09/20/21 14:23 BMI result Body Mass Index 24.9 <Nubia Herron MD - Last Filed: 09/20/21 18:33> Const: Other: elderly female <Tony Louis MD - Last Filed: 09/20/21 14:21> General: healthy appearing <Tony Louis MD - Last Filed: 09/20/21 14:21> Nutritional Appearance: average body habitus <Tony Louis MD - Last Filed: 09/20/21 14:21> Orientation/consciousness: oriented to person and patient oriented x3 <Tony Louis MD - Last Filed: 09/20/21 14:21> Limitations: no limitations <Tony Louis MD - Last Filed: 09/20/21 14:21> HENMT: Head: Yes normal to inspection <Tony Louis MD - Last Filed: 09/20/21 14:21> Ears: external ears normal <Tony Louis MD - Last Filed: 09/20/21 14:21> General nose exam: Normal external nose present <Tony Louis MD - Last Filed: 09/20/21 14:21> Mouth: Normal oral and palatal mucosa present and oropharynx normal <Tony Louis MD - Last Filed: 09/20/21 14:21> Throat: Yes posterior oropharynx normal <Tony Louis MD - Last Filed: 09/20/21 14:21> Eyes: General: appearance normal, both eyes and all related structures <Tony Louis MD - Last Filed: 09/20/21 14:21> Neck: Other: supple <Tony Louis MD - Last Filed: 09/20/21 14:21> Neck: Yes normal visual inspection <Tony Louis MD - Last Filed: 09/20/21 14:21> Chest: Chest palpation & inspection: normal inspection of the chest <Tony Louis MD - Last Filed: 09/20/21 14:21> Resp: Auscultation: clear to auscultation bilaterally <Tony Louis MD - Last Filed: 09/20/21 14:21> Cardio: Other: 4/6 PHILOMENA <Tony Louis MD - Last Filed: 09/20/21 14:21> Jugular venous distension: no JVD <Tony Louis MD - Last Filed: 09/20/21 14:21> Rate: regular rate <Tony Louis MD - Last Filed: 09/20/21 14:21> Rhythm: regular rhythm <Tony Louis MD - Last Filed: 09/20/21 14:21> GI: Inspection: Yes normal to inspection <Tony Louis MD - Last Filed: 09/20/21 14:21> Palpation (GI): Soft to palpation, nontender and No hepatosplenomegaly present <Tony Louis MD - Last Filed: 09/20/21 14:21> Auscultation: normal bowel sounds <Tony Louis MD - Last Filed: 09/20/21 14:21> : General: Yes no CVA tenderness <Tony Louis MD - Last Filed: 09/20/21 14:21> Back/Spine/Pelvis: Other: right SI and sciatic pain with palpation <Tony Louis MD - Last Filed: 09/20/21 14:21> Back: no CVA tenderness <Tony Louis MD - Last Filed: 09/20/21 14:21> Skin: General skin exam: no rashes or lesions noted <Tony Louis MD - Last Filed: 09/20/21 14:21> Neuro: General: oriented to person and patient oriented x3 <Tony Louis MD - Last Filed: 09/20/21 14:21> Cranial nerves: Yes CN's II-XII intact bilaterally <Tony Louis MD - Last Filed: 09/20/21 14:21> Motor exam (neuro): 5/5 motor strength present throughout <Tony Louis MD - Last Filed: 09/20/21 14:21> Sensory Exam: No Sensory deficit (Neuro) <Tony Louis MD - Last Filed: 09/20/21 14:21> Extrem: General: Yes normal to inspection <Tony Louis MD - Last Filed: 09/20/21 14:21> Psych: Appearance: grossly normal <Tony Louis MD - Last Filed: 09/20/21 14:21> Course Course Course Narrative: I discussed the MRI findings with Dr. Aden from neuro surgery that is covering for Dr. Posadas (patient's neurosurgeon). The fluid enhancement by the hemilaminectomy is likely CSF leakage from the surgery. Recommendations: Follow up with Neuro surgery, non Urgent. Patient has multiple bulging discs, likely causing radiculopathy. At this time, there are no physical exam findings I would suggest cauda equina. Patient is ambulatory with help of her walker. That she has no urinary/fecal incontinence/retention. Case management and physical therapy were offered to the patient. Patient declined. Patient states that she is in 1 month in rehab after her laminectomy in June and she absolutely refuses to go back to short-term rehab. Case management was offered to have her restart physical therapy at home. Patient declined. States she has been of Percocet tablets at home Per patient's request, patient is being discharged <Nubia Herron MD - Last Filed: 09/20/21 18:33> MDM - Back Pain/Injury Lab Data Result diagrams: : 09/20/21 14:36 09/20/21 14:36 <Tony Louis MD - Last Filed: 09/20/21 14:21> Labs: Lab Results 09/20/21 09/20/21 12 Range/Units 14:36 14:36 14:47 WBC 6.7 (4.8-10.8) X10*3/uL RBC 3.65 L (4.20-5.50) X10*6/uL Hgb 11.5 L (12.0-16.0) g/dl Hct 33.8 L (37.0-47.0) % MCV 92.6 (80.0-98.0) fL MCH 31.5 (27.0-33.0) pg MCHC 34.0 (31.0-35.0) g/dl RDW 12.0 (11.0-16.0) % Plt Count 320 (160-400) X10*3/uL MPV 8.1 L (9.4-12.3) fL Immature Gran % (Auto) 0.3 (0.0-0.4) % Neut % (Auto) 77.7 H (45-73) % Lymph % (Auto) 11.7 L (20-40) % Windham % (Auto) 9.1 (2-11) % Eos % (Auto) 0.6 (0-4) % Baso % (Auto) 0.6 (0-2) % Lymph # (Auto) 0.8 L (1.2-4.9) X10*3/uL [place] # (Auto) 0.6 (0.1-1.2) X10*3/uL Eos # (Auto) 0.0 (0.0-0.4) X10*3/uL Baso # (Auto) 0.0 (0.0-0.2) X10*3/uL Abs Immat Gran (auto) 0.02 (0.00-0.03) X10*3/uL Absolute Neuts (auto) 5.2 (2.0-8.3) x10*3/uL Absolute Nucleated RBC 0.000 (0.0-0.012) X10*3/uL Nucleated RBC % (auto) 0.0 (0.0-0.2) /100WBC Sodium 130 L (135-145) mmol/L Potassium 4.0 (3.3-5.1) mmol/L Chloride 97 (96-108) mmol/L Carbon Dioxide 25 (22-29) mmol/L Anion Gap 12 (12-20) BUN 10 (9-16) mg/dL Creatinine 0.60 (0.5-1.4) mg/dL Estim Creat Clear Calc 66.5 Estimated GFR > 60 Random Glucose 100 (60-115) mg/dL Calcium 9.4 D (8.4-10.2) mg/dL Urine Color YELLOW Urine Appearance CLEAR Urine pH 7.5 (5.0-8.0) Ur Specific Effie 1.010 (1.005-1.025) Urine Protein NEG (NEG-TRACE) MG/DL Urine Glucose (UA) NEG (NEG) MG/DL Urine Ketones NEG (NEG) MG/DL Urine Blood NEG (NEG) Urine Nitrite NEG (NEG) Ur Leukocyte Esterase NEG (NEG) <Tony Louis MD - Last Filed: 09/20/21 14:21> Lab Results 09/20/21 09/20/21 09/20/21 Range/Units 14:36 14:36 14:47 WBC 6.7 (4.8-10.8) X10*3/uL RBC 3.65 L (4.20-5.50) X10*6/uL Hgb 11.5 L (12.0-16.0) g/dl Hct 33.8 L (37.0-47.0) % MCV 92.6 (80.0-98.0) fL MCH 31.5 (27.0-33.0) pg MCHC 34.0 (31.0-35.0) g/dl RDW 12.0 (11.0-16.0) % Plt Count 320 (160-400) X10*3/uL MPV 8.1 L (9.4-12.3) fL Immature Gran % (Auto) 0.3 (0.0-0.4) % Neut % (Auto) 77.7 H (45-73) % Lymph % (Auto) 11.7 L (20-40) % Windham % (Auto) 9.1 (2-11) % Eos % (Auto) 0.6 (0-4) % Baso % (Auto) 0.6 (0-2) % Lymph # (Auto) 0.8 L (1.2-4.9) X10*3/uL Windham # (Auto) 0.6 (0.1-1.2) X10*3/uL Eos # (Auto) 0.0 (0.0-0.4) X10*3/uL Baso # (Auto) 0.0 (0.0-0.2) X10*3/uL Abs Immat Gran (auto) 0.02 (0.00-0.03) X10*3/uL Absolute Neuts (auto) 5.2 (2.0-8.3) x10*3/uL Absolute Nucleated RBC 0.000 (0.0-0.012) X10*3/uL Nucleated RBC % (auto) 0.0 (0.0-0.2) /100WBC Sodium 130 L (135-145) mmol/L Potassium 4.0 (3.3-5.1) mmol/L Chloride 97 (96-108) mmol/L Carbon Dioxide 25 (22-29) mmol/L Anion Gap 12 (12-20) BUN 10 (9-16) mg/dL Creatinine 0.60 (0.5-1.4) mg/dL Estim Creat Clear Calc 66.5 Estimated GFR > 60 Random Glucose 100 (60-115) mg/dL Calcium 9.4 D (8.4-10.2) mg/dL Urine Color YELLOW Urine Appearance CLEAR Urine pH 7.5 (5.0-8.0) Ur Specific Effie 1.010 (1.005-1.025) Urine Protein NEG (NEG-TRACE) MG/DL Urine Glucose (UA) NEG (NEG) MG/DL Urine Ketones NEG (NEG) MG/DL Urine Blood NEG (NEG) Urine Nitrite NEG (NEG) Ur Leukocyte Esterase NEG (NEG) <Nubia Herron MD - Last Filed: 09/20/21 18:33> Discharge Plan Discharge Clinical Impression: Bulging lumbar disc, Chronic lumbar pain, Radiculopathy <Tony Louis MD - Last Filed: 09/20/21 14:21> Patient Disposition: Home, Self-Care <Tony Louis MD - Last Filed: 09/20/21 14:21> Instructions: Lumbar Radiculopathy (ED) <Tony Louis MD - Last Filed: 09/20/21 14:21> Additional Instructions: Please follow-up with your primary care physician and neurosurgeon tomorro w. If you have any worsening or new symptoms, please return to the emergency room or call 911 <Tony Louis MD - Last Filed: 09/20/21 14:21> Prescriptions: No Action prednisone 5 mg tablet 1 tab PO DAILY RF: 0 tramadol 50 mg Tablet 25 mg PO TID PRN (Reason: Pain, Moderate) RF: 0 lactulose 20 gram/30 mL Solution 15 g PO BID RF: 0 cholecalciferol (vitamin D3) [Vitamin D3] 50 mcg (2,000 unit) Tablet 50 mcg PO DAILY RF: 0 omeprazole 20 mg capsule,delayed release(DR/EC) 20 mg PO DAILY RF: 0 baclofen 10 mg tablet 10 mg PO QID PRN (Reason: Pain) RF: 0 gabapentin 100 mg capsule 200 mg PO BEDTIME RF: 0 latanoprost 0.005 % drops 1 drp ophthalmic (eye) BEDTIME RF: 0 hydroxychloroquine 200 mg tablet 200 mg PO DAILY RF: 0 diltiazem HCl 120 mg capsule,extended release 24hr 120 mg PO DAILY Qty: 90 RF: 4 <Tony Louis MD - Last Filed: 09/20/21 14:21>
[2021-09-20 14:23] VITALS: BP 174/77; PULSE 78; RESP 18; TEMP 37; O2SAT 99; BMI 24.9
[2021-09-20 14:38] LABS: MANUAL DIFF FLAG NO
[2021-09-20 14:41] LABS: Basophils Percent Auto 0.6 % (0-2); Eosinophils Percent Auto 0.6 % (0-4); Hematocrit 33.8 % (37.0-47.0); Hemoglobin 11.5 g/dl (12.0-16.0); Imm Gran Abs Auto 0.02 X10*3/uL (0.00-0.03); Imm Gran Pct Auto 0.3 % (0.0-0.4); Lymphocytes Absolute Auto 0.8 X10*3/uL (1.2-4.9); Lymphocytes Percent Auto 11.7 % (20-40); Mean Corpuscular Hemoglobin 31.5 pg (27.0-33.0); Mean Corpuscular Volume 92.6 fL (80.0-98.0); Mean Platelet Volume 8.1 fL (9.4-12.3); Monocytes Absolute Auto 0.6 X10*3/uL (0.1-1.2); Monocytes Percent Auto 9.1 % (2-11); Neutrophils Absolute Auto 5.2 x10*3/uL (2.0-8.3); Neutrophils Percent Auto 77.7 % (45-73); Platelet Count 320 X10*3/uL (160-400); Red Blood Count 3.65 X10*6/uL (4.20-5.50); White Blood Count 6.7 X10*3/uL (4.8-10.8)
[2021-09-20 14:55] LABS: Appearance Urine CLEAR; Color Urine YELLOW; Glucose Urine UA NEG (NEG); Leukocyte Esterase Urine NEG (NEG); Nitrite Urine NEG (NEG); PH 7.5 (5.0-8.0); Urine Blood NEG (NEG); Urine Ketones NEG (NEG); Urine Protein NEG (NEG-TRACE)
[2021-09-20 15:01] LABS: Anion Gap 12 (12-20); Blood Urea Nitrogen 10 mg/dL (9-16); Calcium 9.4 mg/dL (8.4-10.2); Carbon Dioxide 25 mmol/L (22-29); Chloride 97 mmol/L (96-108); Creatinine Clr Calc Pharmacy 66.5; Estimated Glomerular Filt Rate > 60; Glucose Random 100 mg/dL (60-115); Sodium 130 mmol/L (135-145)
--- NOTE | 2021-09-20 15:34 | PC.NURSE ---
Pt assisted to bedside commode. New IV start to right forearm. Pt now off unit to MRI
--- NOTE | 2021-09-20 16:45 | PC.NURSE ---
Returned to room from MRI, states pain remains 6/10, declines pain meds at this time. Pt assisted to bedside commode with assist of 1. Awaits MRI results
--- NOTE | 2021-09-20 18:29 | PC.NURSE ---
This RN and Dr loaiza to bedside discussing results of MRI and options. Pt ambulated with this RN and wheeled walker (uses at home) with minimal assist but does reports increased pain with ambulation. Pt chooses to be discharged home. Will medicated in ED prior to d/c. Will f/u with surgeon and PCP regarding plan of care Daughter called to transport pt home.
[2021-09-20 18:30] VITALS: BP 168/72; PULSE 82; RESP 18; TEMP 36.4; O2SAT 99
[2021-09-20] MEDS: oxyCODONE HCl Immed Release 5 MG TABLET 2.5 MG PO (18:36)
== END 2021-09-20 18:45 | disposition home or self-care (01) ==
PROVIDERS: Emergency Medicine; Emergency Provider Emergency Medicine; PCP Internal Medicine
DX: M54.16 Radiculopathy, lumbar region (principal); M79.604 Pain in right leg; Z79.899 Other long term (current) drug therapy
CPT/HCPCS: 36415; 72158; 80048; 81003; 85025; 96374; 99284; 99285; A9585

== ENCOUNTER 2021-09-25 11:43 | Outpatient (REF) | payer MEDICARE, SELFPAY ==
--- NOTE | ~2021-09-25 | XR_ITS ---
EXAMINATION: XR HIP, RIGHT CLINICAL INFORMATION: Severe hip pain COMPARISON: CT abdomen of June 09, 2021. TECHNIQUE: Two views of the right hip. FINDINGS: There is no evidence of acute fracture or dislocation of the right hip. No destructive bony lesions identified. There is mild narrowing of the inferior aspect of the joint space. There is prominent spurring seen involving the greater trochanter. No lytic or sclerotic lesions are seen involving the femoral head and there is no evidence of femoral head collapse. There is degenerative change of the right sacroiliac joint with what appears be some subchondral cyst formation. XR/XR hip RT min 2V IMPRESSION: No evidence of acute fracture dislocation of the right hip. Prominent spurring about the greater trochanter. Degenerative change of the sacroiliac joint.
== END 2021-09-25 11:44 | disposition home or self-care (01) ==
LOC: HO.XRAY 11:43
PROVIDERS: PCP Internal Medicine; Visit Provider Neurological Surgery
DX: M25.551 Pain in right hip (principal)
CPT/HCPCS: 73502

== ENCOUNTER → 2022-02-21 12:49 | Outpatient (REF) | payer MEDICARE, SELFPAY ==
--- NOTE | 2022-02-21 12:53 | CA_ITS ---
Transthoracic Echocardiogram Patient (Last, First, Middle): Alondra Kaye J Gender: Female Date of : 1940 Age: 81 Procedure Date: 02/21/2022 Procedure Type: Transthoracic Echocardiogram Location: OP Height: 167.64 cm Weight: 64.86 kg BSA: 1.73 m2 Heart Rate: bpm BP: 137 / 72 mmHg Ict Security Specialist: SB Referring MD: Hermes Hermosillo MD Symptoms: I35.0 - Nonrheumatic aortic (valve) stenosis Study Quality: Good ECG Rhythm: Sinus Conclusions: - 1. Normal LV systolic function with mild LVH with grade 2 diastolic dysfunction 2. Mildly dilated left atrium 3. Severe aortic stenosis with valve area of 0.86 centimeter sq, paradoxical low-flow 4. Calcific mitral valve changes with mild mitral stenosis 5. Normal RV systolic pressure 6. No pericardial effusion Findings Left Ventricle Normal left ventricular size and systolic function. There is mildly increased left ventricular wall thickness. The visually estimated ejection fraction is between 55-60%. Spectral Doppler is indicative of a pseudonormal filling pattern. E/E prime ratio is >15, consistent with elevated filling pressures. Evidence suggests grade II (moderate) diastolic dysfunction. Right Ventricle Normal right ventricular cavity size and systolic function. Atria The left atrium is mildly dilated. There is no evidence of interatrial shunt. The right atrium is normal in size. Aortic Valve There is moderate calcification of the aortic valve. There is moderate thickening of the aortic valve. There is severe aortic valve stenosis. The peak aortic gradient is 43 mmHg.The mean gradient is 33 mmHg. The aortic valve area is 0.86 cm2. There is no aortic valve regurgitation. Measured dimensionless index is 0.23, consistent with severe aortic stenosis. Overall findings consistent with paradoxical low-flow aortic stenosis Mitral Valve There is mild anterior and moderate posterior mitral leaflet thickening. There is moderate mitral annular calcification. There is mild mitral valve regurgitation. There is mild mitral valve stenosis. Pulmonic Valve The pulmonic valve was not well visualized. Tricuspid Valve Likely normal tricuspid valve structure and function. There is mild tricuspid valve regurgitation. The right ventricular systolic pressure is normal. The right ventricular systolic pressure is 35 mmHg. Normal right atrial pressure. There is no evidence of pulmonary hypertension. Great Vessels All visible segments of the aorta are normal in size. The pulmonary artery was not well visualized. Venous The inferior vena cava is normal in size and collapses greater than 50% with inspiration. Pericardium/Pleural There is no evidence of pericardial effusion. Measurements 2D Linear Measurements IVSd: 1.34 0.6-0.9/0.6-1.0 cm LVIDd: 4.58 3.9-5.3/4.2-5.9 cm LVIDd Index: 2.65 2.4-3.2/2.2-3.1 cm/m2 LVIDs: 3.41 2.0-3.6 cm LVPWd: 1.29 0.7-1.1 cm LA Diam: 3.60 2.7-3.8/3.0-4.0 cm LAIDs Index: 2.08 1.5-2.3 cm/m2 LV Mass: 245.01 67-162/88-224 g LV Mass Index: 141.63 43-95/49-115 g/m2 LVOT Diam: 2.10 3.0+(-)1.3 cm Mitral Valve MV VTI: 0.32 MV Pk Butch: 1.47 MV Mn Butch: 0.88 MV Pk Grad: 9.00 MV Mn Grad: 4.00 MV Pk E: 1.28 MV PK A: 0.53 E/A: 2.40 E'Lateral: 6.09 E'Medial: 5.55 E/E' Med: 23.10 E/E' Lat: 21.00 MVA Continuity: 2.05 Aortic Valve AoV Pk Butch: 3.27 AoV Mn Butch: 2.49 AoV VTI: 0.77 AoV Pk Grad: 43.00 Aov Mn Grad: 33.00 MAXIMO Cont.VTI: 0.86 LVOT LVOT Pk Butch: 0.83 LVOT Mn Butch: 0.60 LVOT VTI: 0.19 LVOT Pk Grad: 3.00 LVOT Mn Grad: 2.00 LVOT Diam: 2.10 LVOT Area: 3.46 Diastolic Function MV Pk E: 1.28 MV Pk A: 0.53 E/A: 2.40 E'Medial: 5.55 E/E' Med: 23.10 E' Laterial: 6.09 E/E' Lat: 21.00 Right Ventricle TAPSE (mm): 14.80 TVS' Butch: 9.36 Tricuspid Valve TR Pk Butch: 2.85 TR Pk Grad: 32.00 RA Press: 3.00 RVSP: 35.00 Great Vessels Aorta Sinus of Valsalva: 3.20 2.0-3.[address] Ridge: 2.46 1.7-3.4 cm Ao Asc: 2.90 2.1-3.4 cm Pulmonary Veins Pulm Vein S/D 0.70 Pulmonary Valve PV Pk Butch: 1.02 Peak PV Grad: 4.00 Updated in Other Vendor System with Status of Final Gabe Correa MD electronically signed on 02/21/2022 3:54:12 PM with status of Final
== END ==
LOC: HO.CARD 12:49
PROVIDERS: PCP Internal Medicine; Visit Provider Internal Medicine
DX: I35.0 Nonrheumatic aortic (valve) stenosis (principal)
CPT/HCPCS: 93306

== ENCOUNTER → 2022-03-13 12:58 | Outpatient (BNVA) | payer MEDICARE, SELFPAY | PROVIDERS: PCP Internal Medicine; Visit Provider Internal Medicine | DX: I48.92 Unspecified atrial flutter (principal); I05.9 Rheumatic mitral valve disease, unspecified; R94.31 Abnormal electrocardiogram [ECG] [EKG]; Z79.01 Long term (current) use of anticoagulants; Z79.899 Other long term (current) drug therapy | CPT/HCPCS: 93005; 99212 ==

== ENCOUNTER 2022-05-26 13:26 | Emergency (ER) | payer MEDICARE, SELFPAY ==
[2022-05-26] VITALS (8 sets, daily range): BP systolic 111–185; BP diastolic 46–72; PULSE 63–76; RESP 16–20; TEMP 36.4–36.5; O2SAT 97–99; BMI 23.1
--- NOTE | 2022-05-26 | ECG_ITS ---
Test Reason : dizzy Blood Pressure : / mmHG Vent. Rate : 068 BPM Atrial Rate : 000 BPM P-R Int : 000 ms QRS Dur : 136 ms QT Int : 484 ms P-R-T Axes : 000 093 -53 degrees QTc Int : 514 ms Atrial fibrillation Rightward axis Right bundle branch block T wave abnormality, consider inferior ischemia Abnormal ECG When compared with ECG of 09-JUN-2021 12:59, Atrial fibrillation has replaced Sinus rhythm Non-specific intra-ventricular conduction block has replaced Right bundle branch block Referred By: Leanna Snider Electronically Signed By:CHANELLE LARIOS MD
--- NOTE | ~2022-05-26 | XR_ITS ---
EXAMINATION: XR CHEST CLINICAL INFORMATION: Dizziness COMPARISON: Chest x-ray October 13, 2018 TECHNIQUE: Frontal view of the chest was obtained. FINDINGS: Cardiac silhouette is normal in size. Atherosclerotic disease of the aortic arch. Lungs are hyperinflated suggesting emphysematous changes. There is no gross lobar consolidation. No pleural effusion or pneumothorax. XR/XR chest 1V IMPRESSION: No acute pulmonary pathology.
--- NOTE | ~2022-05-26 | CT_ITS ---
EXAMINATION: CT head/brain wo con CLINICAL INFORMATION: Reason for Exam headache dizziness on eliquis COMPARISON: CT brain without contrast 04/24/2019 TECHNIQUE: Contiguous axial imaging was performed from the skull base to vertex without intravenous contrast. Sagittal and coronal reformatted images were obtained. This CT examination was performed using dose optimization techniques as appropriate, variously including the following: * Automated exposure control * Adjustment of mA and/or kV according to patient size (this includes techniques or standardized protocols for targeted exams where dose is matched to indication/reason for exam; i.e. extremities or head) Use of iterative reconstruction technique DLP: 718 mGy-cm FINDINGS: No acute osseous or soft tissue abnormality. Hyperostosis frontalis interna. Degenerative changes of the left temporomandibular joint. Small fluid in the right maxillary sinus. There is no evidence of acute intracranial hemorrhage or territorial infarction. No abnormal mass effect or midline shift is seen. Hess to white matter differentiation is well preserved. No extra-axial fluid collections are identified. No hydrocephalus. No significant volume loss. Patchy periventricular and deep white matter hypoattenuation is consistent with moderate small vessel ischemic changes. CT/CT head/brain wo con IMPRESSION: No acute intracranial abnormality including hemorrhage, mass effect, hydrocephalus, or acute territorial edematous infarction.
--- NOTE | 2022-05-26 13:50 | ED_ITS ---
HPI - Dizziness General Chief Complaint: Dizziness Stated Complaint: dizziness Time Seen by Provider: 05/26/22 13:33 Source: patient Mode of arrival: EMS Limitations: no limitations History of Present Illness HPI Narrative: 81 yo female with hx of HTN, aortic stenosis, PAF on eliquis, psoriatic arthritis, chronic back pain, prior vertigo (last bout 2 weeks ago) comes to the ED today with c/o feeling lightheaded and difficulty walking since 7am today. The patient also has a mild headache. She denies CP/SOB, GIB symptoms. She reports a mechanical fall 1.5 weeks ago she fell backwards on the concrete but did not seek help. She couldn't walk so she called 911. MD elicited complaint: lightheadedness and difficulty walking Pertinent past history: BPPV Onset (ago): day(s) (started today 7am but had a bout of vertigo 2 weeks ago) Timing: sudden onset Severity: moderate Description: lightheadedness and difficulty walking Context: change in body position History of similar symptoms: Yes Exacerbating factors: movement/ambulation and change in body position Relieving factors: remaining still Associated symptoms: weakness Related Data Home Medications Medication Instructions Recorded Confirmed baclofen 10 mg tablet 10 mg PO QID PRN Pain 09/12/20 03/13/22 gabapentin 100 mg capsule 200 mg PO BEDTIME 09/12/20 03/13/22 hydroxychloroquine 200 mg tablet 200 mg PO DAILY 09/12/20 03/13/22 latanoprost 0.005 % eye drops 1 drp ophthalmic (eye) BEDTIME 09/12/20 03/13/22 omeprazole 20 mg capsule,delayed 20 mg PO DAILY 09/12/20 03/13/22 release lactulose 20 gram/30 mL oral 15 g PO BID constipation 06/17/21 03/13/22 solution tramadol 50 mg tablet 25 mg PO TID PRN Pain, Moderate 06/17/21 03/13/22 cholecalciferol (vitamin D3) 50 50 mcg PO DAILY 06/19/21 03/13/22 mcg (2,000 unit) tablet (Vitamin D3) apixaban 5 mg tablet (Eliquis) 5 mg PO BID 03/13/22 03/13/22 prednisone 2.5 mg tablet 2.5 mg PO DAILY 03/13/22 03/13/22 Previous Rx's Medication Instructions Recorded diltiazem HCl 120 mg 120 mg PO DAILY #90 caps 04/11/22 capsule,extended release 24 hr Allergies Allergy/AdvReac Type Severity Reaction Status Date / Time lisinopril [LISINOPRIL] Allergy Mild COUGH Verified 03/13/22 13:17 [id number] Reductase Allergy Mild RASH Verified 03/13/22 13:17 Inhibitor [[id number] REDUCTASE INHIBITOR] cephalexin [Keflex] Allergy Unknown GI upset Verified 03/13/22 13:17 and pain hydrochlorothiazide Allergy Unknown unknown Verified 03/13/22 13:17 Sulfa (Sulfonamide Allergy Rash Verified 03/13/22 13:17 Antibiotics) Review of Systems Review of Systems: Constitutional : No Weight loss, No Fever, No Chills, pos Fatigue, No Malaise ENT/Mouth : No sore throat, No Rhinorrhea Eyes: No Eye Pain, No Swelling, No Redness Cardiovascular : No Chest Pain, No SOB, No Dyspnea on Exertion, No Orthopnea, No Edema, No Palpitations Respiratory : No Cough, No Sputum, No Wheezing Gastrointestinal : No Nausea, No Vomiting, No Diarrhea, No Constipation, No abd ominal Pain, No Hematochezia, No Melena Genitourinary : No Dysuria, No Urinary Frequency, No Hematuria, Musculoskeletal : No Myalgias, No Joint Swelling Skin : No Skin Lesions, No rash Neuro : pos Weakness, No Numbness, pos Dizziness, pos Headache Psych : No Anxiety/Panic, No Depression Heme/Lymph: No Bruising, No Bleeding,No Lymphadenopathy Endocrine : No Polyuria, No Polydipsia All other systems reviewed and are negative [facility] Past Medical History Medical History Essential hypertension Nonrheumatic aortic (valve) stenosis Paroxysmal atrial flutter Psoriatic arthritis Surgical History History of hysterectomy History of knee surgery Family History Family History Father CVD (cardiovascular disease) Mother No problems noted. Social History Social History Household Members: None Housing: House Do you presently have visiting nurse or other home services: No Alcohol intake: never Patient Tobacco Use Status: Never used Tobacco e-Cigarette/Vaping Use: Never Used Second Hand Smoke Exposure: No Advance Directives: Yes Advance Directives Information Provided: Yes Advance Directives on File: No service: No Current occupational status: retired Physical Exam Vital Signs: Vital Signs: Last Vital Signs Temp 97.7 F 05/26/22 14:15 Pulse 76 05/26/22 14:15 Resp 19 05/26/22 14:15 BP 149/65 H 05/26/22 14:15 Pulse Ox 97 05/26/22 14:15 O2 Del Method 05/26/22 14:15 BMI result Body Mass Index 23.1 Appearance: Alert. Oriented X3. No acute distress. Eyes: Pupils equal, round and reactive to light. both eyes noted with cataracts ENT: Pharynx normal. Neck: Normal inspection. Neck supple. CVS: irregular heart rate and rhythm. Pulses normal. Respiratory: No respiratory distress. Breath sounds normal. Abdomen: Soft and nontender. Skin: Skin warm and dry. Normal skin color. Normal skin turgor. Extremities: No lower extremity edema. Neuro: Oriented X 3. No motor deficit. No sensory deficit. Course Course Course Narrative: ortho VS negative nonspecific EKG changes no CP/SOB repeat troponin pending, BNP elevated but no signs of clinical volume overloase CT head negative still has slight dizzy when she sits up but feels better notes her dizziness is not new and hasn't felt quite right in a while on my most recent assessment signed out to Dr. Parry pending repeat troponin and ambulation trial. MDM - Dizziness MDM Narrative Medical decision making narrative: 81 yo female with hx of HTN, aortic stenosis, PAF on eliquis, psoriatic arthritis, chronic back pain, prior vertigo here with c/o feeling lightheaded and unable to walk. At this time given her symptoms and recent fall CT head for ICH ordered, if posterior stroke she is presenting > 5 hours and took her DOAC this AM so she is not a candidate for tPA. EKG and cardiac markers also ordered though has no CP/SOB. Ortho VS ordered. She does suffer from vertigo and ocular migraines so this could just be vertigo but she notes the room is not spinning to her. PO meclizine ordered. Dispo per results and findings. Lab Data Result diagrams: 05/26/22 13:51 05/26/22 13:51 Labs: Lab Results 05/26/22 05/26/22 05/26/22 Range/Units 13:51 13:51 13:51 WBC 7.4 (4.8-10.8) X10*3/uL RBC 4.13 L (4.20-5.50) X10*6/uL Hgb 12.8 (12.0-16.0) g/dl Hct 36.9 L (37.0-47.0) % MCV 89.3 (80.0-98.0) fL MCH 31.0 (27.0-33.0) pg MCHC 34.7 (31.0-35.0) g/dl RDW 13.0 (11.0-16.0) % Plt Count 254 (160-400) X10*3/uL MPV 8.7 L (9.4-12.3) fL Immature Gran % (Auto) 0.1 (0.0-0.4) % Neut % (Auto) 77.5 H (45-73) % Lymph % (Auto) 11.4 L (20-40) % [place] % (Auto) 9.7 (2-11) % Eos % (Auto) 0.5 (0-4) % Baso % (Auto) 0.8 (0-2) % Lymph # (Auto) 0.9 L (1.2-4.9) X10*3/uL [place] # (Auto) 0.7 (0.1-1.2) X10*3/uL Eos # (Auto) 0.0 (0.0-0.4) X10*3/uL Baso # (Auto) 0.1 (0.0-0.2) X10*3/uL Abs Immat Gran (auto) 0.01 (0.00-0.03) X10*3/uL Absolute Neuts (auto) 5.8 (2.0-8.3) x10*3/uL Absolute Nucleated RBC 0.000 (0.0-0.012) X10*3/uL Nucleated RBC % (auto) 0.0 (0.0-0.2) /100WBC PT 16.5 H (10.0-13.1) SEC INR 1.4 H (0.9-1.1) Sodium 132 L (135-145) mmol/L Potassium 4.2 (3.3-5.1) mmol/L Chloride 98 (96-108) mmol/L Carbon Dioxide 22 (22-29) mmol/L Anion Gap 16 (12-20) BUN 15 (9-16) mg/dL Creatinine 0.59 (0.5-1.4) mg/dL Estim Creat Clear Calc 67.6 Estimated GFR > 60 Random Glucose 101 (60-115) mg/dL Calcium 9.3 (8.4-10.2) mg/dL Magnesium 1.9 (1.6-2.6) mg/dL Total Bilirubin 1.7 H (0.0-1.0) mg/dL Direct Bilirubin 0.6 H (0.0-0.5) mg/dL AST 30 (5-31) U/L ALT 22 (0-31) U/L Alkaline Phosphatase 113 (39-117) U/L Troponin I High Sens (<3.5-17.0) ng/L B-Natriuretic Peptide (<100) pg/mL Total Protein 6.2 L (6.5-8.0) g/dL Albumin 4.1 (3.5-5.0) g/dL Lipase 25 (8-78) U/L Urine Color Urine Appearance Urine pH (5.0-8.0) Ur Specific [place] (1.005-1.025) Urine Protein (NEG-TRACE) MG/DL Urine Glucose (UA) (NEG) MG/DL Urine Ketones (NEG) MG/DL Urine Blood (NEG) Urine Nitrite (NEG) Ur Leukocyte Esterase (NEG) COVID-19 (DARLINE) (Negative) COVID-19 Clin Com 05/26/22 05/26/22 05/26/22 Range/Units 13:51 13:51 14:45 WBC (4.8-10.8) X10*3/uL RBC (4.20-5.50) X10*6/uL Hgb (12.0-16.0) g/dl Hct (37.0-47.0) % MCV (80.0-98.0) fL MCH (27.0-33.0) pg MCHC (31.0-35.0) g/dl RDW (11.0-16.0) % Plt Count (160-400) X10*3/uL MPV (9.4-12.3) fL Immature Gran % (Auto) (0.0-0.4) % Neut % (Auto) (45-73) % Lymph % (Auto) (20-40) % [place] % (Auto) (2-11) % Eos % (Auto) (0-4) % Baso % (Auto) (0-2) % Lymph # (Auto) (1.2-4.9) X10*3/uL [place] # (Auto) (0.1-1.2) X10*3/uL Eos # (Auto) (0.0-0.4) X10*3/uL Baso # (Auto) (0.0-0.2) X10*3/uL Abs Immat Gran (auto) (0.00-0.03) X10*3/uL Absolute Neuts (auto) (2.0-8.3) x10*3/uL Absolute Nucleated RBC (0.0-0.012) X10*3/uL Nucleated RBC % (auto) (0.0-0.2) /100WBC PT (10.0-13.1) SEC INR (0.9-1.1) Sodium (135-145) mmol/L Potassium (3.3-5.1) mmol/L Chloride (96-108) mmol/L Carbon Dioxide (22-29) mmol/L Anion Gap (12-20) BUN (9-16) mg/dL Creatinine (0.5-1.4) mg/dL Estim Creat Clear Calc Estimated GFR Random Glucose (60-115) mg/dL Calcium (8.4-10.2) mg/dL Magnesium (1.6-2.6) mg/dL Total Bilirubin (0.0-1.0) mg/dL Direct Bilirubin (0.0-0.5) mg/dL AST (5-31) U/L ALT (0-31) U/L Alkaline Phosphatase (39-117) U/L Troponin I High Sens 32.2 H (<3.5-17.0) ng/L B-Natriuretic Peptide 314 H (<100) pg/mL Total Protein (6.5-8.0) g/dL Albumin (3.5-5.0) g/dL Lipase (8-78) U/L Urine Color YELLOW Urine Appearance CLEAR Urine pH 7.0 (5.0-8.0) Ur Specific [place] 1.010 (1.005-1.025) Urine Protein NEG (NEG-TRACE) MG/DL Urine Glucose (UA) NEG (NEG) MG/DL Urine Ketones NEG (NEG) MG/DL Urine Blood NEG (NEG) Urine Nitrite NEG (NEG) Ur Leukocyte Esterase NEG (NEG) COVID-19 (DARLINE) Negative (Negative) COVID-19 Clin Com See Note ECG Data Attestation: I personally reviewed and interpreted this ECG as follows: ECG interpretation date: 05/26/22 ECG interpretation time: 13:51 Interpretation: Rate: 68 Rhythm: afib [place]: rightward widened QRS complex. ST T wave : no JOSE, inverted II, III, aVF qTC: prolonged prior studies: new inf t wave inversions 2020 The study has been interpreted contemporaneously by me. . Discharge Plan Discharge Clinical Impression: Dizziness Patient Disposition: Still a Patient Prescriptions: No Action diltiazem HCl 120 mg capsule,extended release 24hr 120 mg PO DAILY Qty: 90 3RF tramadol 50 mg Tablet 25 mg PO TID PRN (Reason: Pain, Moderate) lactulose 20 gram/30 mL Solution 15 g PO BID cholecalciferol (vitamin D3) [Vitamin D3] 50 mcg (2,000 unit) Tablet 50 mcg PO DAILY omeprazole 20 mg capsule,delayed release(DR/EC) 20 mg PO DAILY baclofen 10 mg tablet 10 mg PO QID PRN (Reason: Pain) gabapentin 100 mg capsule 200 mg PO BEDTIME latanoprost 0.005 % drops 1 drp ophthalmic (eye) BEDTIME hydroxychloroquine 200 mg tablet 200 mg PO DAILY Eliquis 5 mg tablet 5 mg PO BID prednisone 2.5 mg tablet 2.5 mg PO DAILY
[2022-05-26 14:00] LABS: MANUAL DIFF FLAG NO
[2022-05-26 14:01] LABS: Basophils Absolute Auto 0.1 X10*3/uL (0.0-0.2); Basophils Percent Auto 0.8 % (0-2); Eosinophils Percent Auto 0.5 % (0-4); Hematocrit 36.9 % (37.0-47.0); Hemoglobin 12.8 g/dl (12.0-16.0); Imm Gran Abs Auto 0.01 X10*3/uL (0.00-0.03); Imm Gran Pct Auto 0.1 % (0.0-0.4); Lymphocytes Absolute Auto 0.9 X10*3/uL (1.2-4.9); Lymphocytes Percent Auto 11.4 % (20-40); Mean Corpuscular HGB Conc 34.7 g/dl (31.0-35.0); Mean Corpuscular Volume 89.3 fL (80.0-98.0); Mean Platelet Volume 8.7 fL (9.4-12.3); Monocytes Absolute Auto 0.7 X10*3/uL (0.1-1.2); Monocytes Percent Auto 9.7 % (2-11); Neutrophils Absolute Auto 5.8 x10*3/uL (2.0-8.3); Neutrophils Percent Auto 77.5 % (45-73); Platelet Count 254 X10*3/uL (160-400); Red Blood Count 4.13 X10*6/uL (4.20-5.50); White Blood Count 7.4 X10*3/uL (4.8-10.8)
[2022-05-26 14:06] LABS: INTERNATIONAL NORM RATIO 1.4 (0.9-1.1); Prothrombin Time 16.5 SEC (10.0-13.1)
[2022-05-26 14:19] LABS: COVID-19 Test Negative (Negative); IDNOW Serial# 55D5AD1C
[2022-05-26 14:22] LABS: B Type Natriuretic Peptide 314 pg/mL (<100); Troponin-I High Sensitivity 32.2 ng/L (<3.5-17.0)
[2022-05-26 14:25] LABS: Alanine Aminotransferase 22 U/L (0-31); Albumin Level 4.1 g/dL (3.5-5.0); Alkaline Phosphatase 113 U/L (39-117); Anion Gap 16 (12-20); Aspartate Amino Transferase 30 U/L (5-31); Bilirubin Direct 0.6 mg/dL (0.0-0.5); Bilirubin Total 1.7 mg/dL (0.0-1.0); Blood Urea Nitrogen 15 mg/dL (9-16); Calcium 9.3 mg/dL (8.4-10.2); Carbon Dioxide 22 mmol/L (22-29); Chloride 98 mmol/L (96-108); Creatinine Clr Calc Pharmacy 67.6; Estimated Glomerular Filt Rate > 60; Glucose Random 101 mg/dL (60-115); Lipase 25 U/L (8-78); Magnesium 1.9 mg/dL (1.6-2.6); Potassium 4.2 mmol/L (3.3-5.1); Sodium 132 mmol/L (135-145); Total Protein 6.2 g/dL (6.5-8.0)
[2022-05-26] MEDS: Meclizine HCl 25 MG TABLET PO (14:47)
[2022-05-26 14:54] LABS: Appearance Urine CLEAR; Color Urine YELLOW; Glucose Urine UA NEG (NEG); Leukocyte Esterase Urine NEG (NEG); Nitrite Urine NEG (NEG); Urine Blood NEG (NEG); Urine Ketones NEG (NEG); Urine Protein NEG (NEG-TRACE)
--- NOTE | 2022-05-26 15:23 | PC.NURSE ---
PT denies dizziness at rest. Not in any acute resp. distress, denies cp. c/o of chronic right hand pain. PT IS ORT X 3. Cardiac monitory showing AFIB at a rate of 67.
[2022-05-26 16:27] LABS: Troponin-I High Sensitivity 30.7 ng/L (<3.5-17.0)
--- NOTE | 2022-05-26 17:47 | PHA.MEDREC ---
MED REC COMPLETE, NO ISSUES Pharmacy Consult ? Medication Reconciliation Pharmacy has completed the medication reconciliation.
--- NOTE | 2022-05-26 21:24 | PC.NURSE ---
pharmacy contacted to bring down medication.
[2022-05-26] MEDS: Apixaban 5 MG TABLET PO (21:52)
[2022-05-26] MEDS: Latanoprost 0.005 % Ophth Sol 2.5 ML DROPS 1 DROP EYE-BOTH (21:52)
[2022-05-26] MEDS: Hydroxychloroquine Sulfate 200 MG TABLET 100 MG PO (21:55)
[2022-05-27] VITALS: BP 130/61; PULSE 79; RESP 14; TEMP 36.7; O2SAT 96
[2022-05-27 01:40] VITALS: BP 110/47; PULSE 65; RESP 16; TEMP 36.6; O2SAT 98
[2022-05-27 07:13] VITALS: BP 146/60; PULSE 64; RESP 16; TEMP 36.4; O2SAT 98
[2022-05-27] MEDS: dilTIAZem HCL CD 120 MG CAP.ER.DEG PO (10:34)
[2022-05-27] MEDS: Cholecalciferol (Vitamin D3) 25 MCG TABLET 50 MCG PO (10:34)
[2022-05-27] MEDS: Apixaban 5 MG TABLET PO ×2 (10:34→22:20)
[2022-05-27] MEDS: predniSONE 5 MG TABLET PO (10:34)
[2022-05-27] MEDS: Hydroxychloroquine Sulfate 200 MG TABLET PO (10:34)
[2022-05-27 11:49] VITALS: BP 152/101; PULSE 70; RESP 14; TEMP 36.8
[2022-05-27] MEDS: Baclofen 10 MG TABLET 5 MG PO ×2 (12:10→22:27)
--- NOTE | 2022-05-27 14:31 | PC.NURSE ---
Pt has been resting quietly in bed, sat at bedside for lunch. c/o of right wrist pain. additional prn's offered. awaits CM plan of care.
[2022-05-27] MEDS: traMADoL HCL 50 MG TABLET 25 MG PO (15:10)
[2022-05-27] MEDS: Hydroxychloroquine Sulfate 200 MG TABLET 100 MG PO (22:20)
[2022-05-27] MEDS: Latanoprost 0.005 % Ophth Sol 2.5 ML DROPS 1 DROP EYE-BOTH (22:22)
[2022-05-27] MEDS: Triamcinolone Acet 0.025 % Cream 15 GM TUBE 1 APPL TOPICAL (22:23)
[2022-05-27] MEDS: Acetaminophen 325 MG TABLET 975 MG PO (22:29)
[2022-05-27 22:31] VITALS: BP 132/64; PULSE 80; RESP 18; TEMP 36.4; O2SAT 99
[2022-05-28 08:04] VITALS: BP 132/83; PULSE 68; RESP 15; O2SAT 100
[2022-05-28 08:11] VITALS: BP 132/83; PULSE 68; O2SAT 100
--- NOTE | 2022-05-28 08:55 | MHC.CM.PN ---
Addendum entered by Kamini Martinez 05/28/22 11:21: BLS TRANSPORT BOOKED ON HOLD WITH [facility] Addendum entered by Kamini Martinez 05/28/22 11:10: [facility] IS OFFERING PT A STR BED [facility] HAS INDICATED THEY WILL SUBMIT REQUEST FOR AUTH PT WILL DC TO [facility] FOR STR PENDING INSURANCE AUTH [facility] TO TRANSPORT Original Note: PT WILL REQUIRE STR PLACEMENT UPDATES/PT EVAL, SENT TO [facility] AND [facility] IS [facility]TS PREFERRED [facility]AC[facility] PER PREVIOUS CM NOTE IN CARE PORT AWAITING RESPONSES
[2022-05-28] MEDS: Apixaban 5 MG TABLET PO ×2 (10:10→23:03)
[2022-05-28] MEDS: dilTIAZem HCL CD 120 MG CAP.ER.DEG PO (10:10)
[2022-05-28] MEDS: Hydroxychloroquine Sulfate 200 MG TABLET PO (10:10)
[2022-05-28] MEDS: Cholecalciferol (Vitamin D3) 25 MCG TABLET 50 MCG PO (10:10)
[2022-05-28] MEDS: Lactulose 20 GM/30 ML SOLUTION 15 GM PO (10:10)
[2022-05-28] MEDS: Baclofen 10 MG TABLET 5 MG PO ×2 (10:13→23:06)
[2022-05-28] MEDS: predniSONE 2.5 MG TABLET PO (10:34)
[2022-05-28 11:54] VITALS: BP 141/65; PULSE 66; RESP 16; TEMP 36.4; O2SAT 100
[2022-05-28] MEDS: Acetaminophen 325 MG TABLET 650 MG PO (16:19)
[2022-05-28 16:21] VITALS: BP 125/90; PULSE 85; RESP 19; O2SAT 100
[2022-05-28] MEDS: Hydroxychloroquine Sulfate 200 MG TABLET 100 MG PO (23:07)
[2022-05-28] MEDS: Triamcinolone Acet 0.025 % Cream 15 GM TUBE 1 APPL TOPICAL (23:09)
[2022-05-28] MEDS: Latanoprost 0.005 % Ophth Sol 2.5 ML DROPS 1 DROP EYE-BOTH (23:09)
[2022-05-29 00:33] VITALS: BP 138/47; PULSE 64; RESP 13; TEMP 36.5; O2SAT 99
[2022-05-29 08:26] VITALS: BP 127/66; PULSE 65; RESP 20; TEMP 36.5; O2SAT 97
[2022-05-29] MEDS: Cholecalciferol (Vitamin D3) 25 MCG TABLET 50 MCG PO (08:28)
[2022-05-29] MEDS: Hydroxychloroquine Sulfate 200 MG TABLET PO (08:28)
[2022-05-29] MEDS: predniSONE 5 MG TABLET PO (08:28)
[2022-05-29] MEDS: Lactulose 20 GM/30 ML SOLUTION 15 GM PO (08:28)
[2022-05-29] MEDS: dilTIAZem HCL CD 120 MG CAP.ER.DEG PO (08:29)
[2022-05-29] MEDS: Apixaban 5 MG TABLET PO (08:29)
[2022-05-29] MEDS: Baclofen 10 MG TABLET 5 MG PO (08:33)
[2022-05-29] MEDS: Triamcinolone Acet 0.025 % Cream 15 GM TUBE 1 APPL TOPICAL (08:34)
[2022-05-29 14:27] VITALS: BP 111/42; PULSE 80; RESP 15; O2SAT 100
--- NOTE | 2022-05-29 14:34 | MHC.CM.ED ---
THIS TREE WRAPPER HAS BEEN SPEAKING WITH [facility] FOR [facility] DESPITE MULTIPLE ATTEMPTS OT SECURE BED, NO AUTHORIZATION TO ADMIT HAS BEEN GIVEN TO THE FACILITY BY PATIENT'S MANAGED INSURANCE PLAN.
--- NOTE | 2022-05-29 16:54 | PC.NURSE ---
RN-RN report called to Mary Reyes.
== END 2022-05-29 17:03 ==
PROVIDERS: Emergency Medicine; Emergency Provider Student in an Organized Health Care Education/Training Program; PCP Internal Medicine
DX: R42 Dizziness and giddiness (principal); R51.9 Headache, unspecified; R53.1 Weakness; I10 Essential (primary) hypertension; I48.0 Paroxysmal atrial fibrillation; Z79.01 Long term (current) use of anticoagulants; Z20.822 Contact with and (suspected) exposure to COVID-19
CPT/HCPCS: 36415; 70450; 71045; 80048; 80076; 81003; 83690; 83735; 83880; 84484; 85025; 85610; 87635; 93005; 97162; 99285

== ENCOUNTER 2022-07-20 14:03 | Outpatient (REF) | payer MEDICARE, SELFPAY ==
[2022-07-20 18:17] LABS: MANUAL DIFF FLAG NO
[2022-07-20 18:22] LABS: Basophils Percent Auto 0.4 % (0-2); Eosinophils Percent Auto 0.2 % (0-4); Hematocrit 34.2 % (37.0-47.0); Hemoglobin 11.5 g/dl (12.0-16.0); Imm Gran Abs Auto 0.01 X10*3/uL (0.00-0.03); Imm Gran Pct Auto 0.2 % (0.0-0.4); Lymphocytes Absolute Auto 0.5 X10*3/uL (1.2-4.9); Lymphocytes Percent Auto 8.8 % (20-40); Mean Corpuscular HGB Conc 33.6 g/dl (31.0-35.0); Mean Corpuscular Hemoglobin 31.7 pg (27.0-33.0); Mean Corpuscular Volume 94.2 fL (80.0-98.0); Mean Platelet Volume 8.8 fL (9.4-12.3); Monocytes Absolute Auto 0.3 X10*3/uL (0.1-1.2); Neutrophils Absolute Auto 4.4 x10*3/uL (2.0-8.3); Neutrophils Percent Auto 85.4 % (45-73); Platelet Count 354 X10*3/uL (160-400); Red Blood Count 3.63 X10*6/uL (4.20-5.50); White Blood Count 5.2 X10*3/uL (4.8-10.8)
[2022-07-20 18:50] LABS: Alanine Aminotransferase 21 U/L (0-31); Albumin Level 3.6 g/dL (3.5-5.0); Alkaline Phosphatase 89 U/L (39-117); Anion Gap 15 (12-20); Aspartate Amino Transferase 27 U/L (5-31); Bilirubin Total 0.8 mg/dL (0.0-1.0); Blood Urea Nitrogen 14 mg/dL (9-16); Calcium 9.1 mg/dL (8.4-10.2); Carbon Dioxide 24 mmol/L (22-29); Chloride 97 mmol/L (96-108); Estimated Glomerular Filt Rate > 60; Glucose Random 123 mg/dL (60-115); Sodium 131 mmol/L (135-145); Total Protein 5.5 g/dL (6.5-8.0)
[2022-07-20 19:41] LABS: Erythrocyte Sedimentation Rate 7 MM/HR (0-20)
== END 2022-07-20 14:04 | disposition home or self-care (01) ==
LOC: HO.MANLDS 14:03
PROVIDERS: Visit Provider Internal Medicine
DX: R30.0 Dysuria (principal)
CPT/HCPCS: 36415; 80053; 85025; 85652

== ENCOUNTER → 2022-08-29 13:08 | Outpatient (REF) | payer MEDICARE, SELFPAY ==
--- NOTE | 2022-08-29 13:11 | CA_ITS ---
Transthoracic Echocardiogram Patient (Last, First, Middle): Alondra Kaye J Gender: Female Date of : 1940 Age: 82 Procedure Date: 08/29/2022 Procedure Type: Transthoracic Echocardiogram Location: OP Height: 170.18 cm Weight: 64.86 kg BSA: 1.75 m2 Heart Rate: bpm BP: 114 / 74 mmHg Client Support Coordinator: TO Referring MD: Hermes Hermosillo MD [employer] [facility] Attendant: Gabe Correa MD Symptoms: I35.0 - Nonrheumatic aortic (valve) stenosis Study Quality: Adequate ECG Rhythm: Sinus with extra beats Conclusions: - 1. Normal LV systolic function with grade 2 diastolic dysfunction next 2. Mildly dilated left atrium 3. Severe aortic stenosis with mean gradient on this study at 43 mmHg with valve area 0.8 centimeters sq 4. Normal RV systolic pressure 5. Calcific mitral valve changes with mild mitral stenosis 6. No pericardial effusion Findings Left Ventricle Normal left ventricular size and systolic function. There is mildly increased left ventricular wall thickness. The visually estimated ejection fraction is between 60-65%. Spectral Doppler is indicative of a pseudonormal filling pattern. E/E prime ratio is >15, consistent with elevated filling pressures. Evidence suggests grade II (moderate) diastolic dysfunction. Right Ventricle Normal right ventricular cavity size and systolic function. Atria The left atrium is mildly dilated. There is no evidence of interatrial shunt. The right atrium is normal in size. Aortic Valve There is moderate calcification of the aortic valve. There is moderate thickening of the aortic valve. There is severe aortic valve stenosis. The peak aortic gradient is 68 mmHg.The mean gradient is 43 mmHg. The aortic valve area is 0.78 cm2. There is no aortic valve regurgitation. Mitral Valve There is mild anterior and posterior mitral leaflet thickening. There is mild mitral annular calcification. There is trace mitral valve regurgitation. There is mild mitral valve stenosis. Pulmonic Valve The pulmonic valve is likely normal. Tricuspid Valve Normal tricuspid valve structure. There is mild tricuspid valve regurgitation. The right ventricular systolic pressure is normal. The right ventricular systolic pressure is 31 mmHg. Mildly elevated right atrial pressure. There is no evidence of pulmonary hypertension. Great Vessels All visible segments of the aorta are normal in size. The pulmonary artery was not well visualized. Venous The inferior vena cava is mildly dilated and collapses greater than 50% with inspiration. Pericardium/Pleural There is no evidence of pericardial effusion. Prior Study Comparison No significant change compared to prior study dated: 02/21/2022. Measurements 2D Linear Measurements IVSd: 1.33 0.6-0.9/0.6-1.0 cm LVIDd: 4.54 3.9-5.3/4.2-5.9 cm LVIDd Index: 2.59 2.4-3.2/2.2-3.1 cm/m2 LVIDs: 3.20 2.0-3.6 cm LVPWd: 1.36 0.7-1.1 cm LA Diam: 3.30 2.7-3.8/3.0-4.0 cm LAIDs Index: 1.89 1.5-2.3 cm/m2 LV Mass: 295.73 67-162/88-224 g LV Mass Index: 168.99 43-95/49-115 g/m2 LVOT Diam: 2.10 3.0+(-)1.3 cm 2D Systolic Function EF 4C: 64.50 >55% Mitral Valve MV VTI: 0.47 MV Pk Butch: 1.32 MV Mn Butch: 0.74 MV Pk Grad: 7.00 MV Mn Grad: 3.00 MV Pk E: 1.35 MV PK A: 0.68 MV Decel Time: 237.00 E/A: 2.00 E'Lateral: 7.18 E'Medial: 4.68 E/E' Med: 28.80 E/E' Lat: 18.80 PHT: 70.00 MVA PHT: 3.14 MVA Continuity: 1.75 Decel [place]: 5.70 Aortic Valve AoV Pk Butch: 4.11 AoV Mn Butch: 3.12 AoV VTI: 1.05 AoV Pk Grad: 68.00 Aov Mn Grad: 43.00 MAXIMO Cont.VTI: 0.78 LVOT LVOT Pk Butch: 1.02 LVOT Mn Butch: 0.70 LVOT VTI: 0.24 LVOT Pk Grad: 4.00 LVOT Mn Grad: 2.00 LVOT Diam: 2.10 LVOT Area: 3.46 Diastolic Function MV Pk E: 1.35 MV Pk A: 0.68 E/A: 2.00 E'Medial: 4.68 E/E' Med: 28.80 E' Laterial: 7.18 E/E' Lat: 18.80 Right Ventricle TAPSE (mm): 19.10 TVS' Butch: 12.10 Tricuspid Valve TR Pk Butch: 2.38 TR Pk Grad: 23.00 RA Press: 8.00 RVSP: 31.00 Great Vessels Aorta Sinus of Valsalva: 3.31 2.0-3.[address] [place]: 2.49 1.7-3.4 cm Ao Asc: 2.90 2.1-3.4 cm Updated in Other Vendor System with Status of Final Gabe Correa MD electronically signed on 08/30/2022 8:29:45 AM with status of Final
== END ==
LOC: HO.CARD 13:08
PROVIDERS: PCP Internal Medicine; Visit Provider Internal Medicine
DX: I35.0 Nonrheumatic aortic (valve) stenosis (principal)
CPT/HCPCS: 93306

== ENCOUNTER → 2022-09-18 10:38 | Outpatient (BNVA) | payer MEDICARE, SELFPAY | PROVIDERS: PCP Internal Medicine; Visit Provider Internal Medicine | DX: I35.0 Nonrheumatic aortic (valve) stenosis (principal); I48.92 Unspecified atrial flutter; I05.9 Rheumatic mitral valve disease, unspecified; R94.31 Abnormal electrocardiogram [ECG] [EKG] | CPT/HCPCS: 93005; 99212 ==

== ENCOUNTER → 2023-02-11 13:01 | Outpatient (REF) | payer MEDICARE, SELFPAY ==
--- NOTE | 2023-02-11 13:11 | CA_ITS ---
Transthoracic Echocardiogram Patient (Last, First, Middle): Alondra Kaye J Gender: Female Date of : 1940 Age: 82 Procedure Date: 02/11/2023 Procedure Type: Transthoracic Echocardiogram Location: OP Height: 167.64 cm Weight: 65.77 kg BSA: 1.74 m2 Heart Rate: bpm BP: 124 / 66 mmHg Machinist/Machine Builder: Referring MD: Hermes Hermosillo MD Symptoms: I35.0 - Nonrheumatic aortic (valve) stenosis Study Quality: Fair ECG Rhythm: Sinus Conclusions: - The left ventricular systolic function is normal. The visually estimated ejection fraction is between 55-60%. - Evidence suggests grade II (moderate) diastolic dysfunction. - There is severe aortic valve stenosis. - There is moderate mitral annular calcification. Findings Left Ventricle Normal left ventricular cavity size. There is severely increased left ventricular wall thickness. The left ventricular systolic function is normal. The visually estimated ejection fraction is between 55-60%. There is no evidence of regional wall motion abnormalities. Evidence suggests grade II (moderate) diastolic dysfunction. Right Ventricle Mildly increased right ventricular cavity size. There is normal right ventricular systolic function. Atria The left atrium is moderately dilated. The right atrium is normal in size. Aortic Valve There is severe calcification of the aortic valve. There is severe aortic valve stenosis. The peak aortic velocity is 4.50 m/s with a calculated peak gradient of 81 mmHg. The mean gradient is 50 mmHg. The aortic valve area is 0.67 cm2. There is no aortic valve regurgitation. Mitral Valve There is moderate mitral annular calcification. There is mild mitral valve regurgitation. Doubt any significant mitral stenosis. Pulmonic Valve The pulmonic valve is likely normal. Tricuspid Valve Normal tricuspid valve structure. There is mild tricuspid valve regurgitation. Mild pulmonary hypertension is present. Great Vessels The asc aorta is normal in size. Venous The inferior vena cava is normal in size and collapses greater than 50% with inspiration. Pericardium/Pleural There is no evidence of pericardial effusion. Prior Study Comparison No significant change compared to prior study dated: 08/29/2022. Measurements 2D Linear Measurements IVSd: 1.46 0.6-0.9/0.6-1.0 cm LVIDd: 4.71 3.9-5.3/4.2-5.9 cm LVIDd Index: 2.71 2.4-3.2/2.2-3.1 cm/m2 LVIDs: 3.61 2.0-3.6 cm LVPWd: 1.41 0.7-1.1 cm Ao Root: 3.00 2.1-3.5 cm LA Diam: 4.30 2.7-3.8/3.0-4.0 cm LAIDs Index: 2.47 1.5-2.3 cm/m2 LV Mass: 344.27 67-162/88-224 g LV Mass Index: 197.86 43-95/49-115 g/m2 LVOT Diam: 2.00 3.0+(-)1.3 cm 2D Systolic Function EF 4C: 54.20 >55% EF 2C: 68.10 >55% EF BiP: 60.10 >55% Mitral Valve MV Pk E: 1.32 MV PK A: 0.69 MV Decel Time: 233.00 E/A: 1.90 E'Lateral: 11.10 E'Medial: 5.11 E/E' Med: 25.80 E/E' Lat: 11.90 PHT: 68.00 MVA PHT: 3.24 Decel [place]: 5.64 Aortic Valve AoV Pk Butch: 4.50 AoV Mn Butch: 3.32 AoV VTI: 1.15 AoV Pk Grad: 81.00 Aov Mn Grad: 50.00 MAXIMO Cont.VTI: 0.67 LVOT LVOT Pk Butch: 0.98 LVOT Mn Butch: 0.67 LVOT VTI: 0.25 LVOT Pk Grad: 4.00 LVOT Mn Grad: 2.00 LVOT Diam: 2.00 LVOT Area: 3.14 Diastolic Function MV Pk E: 1.32 MV Pk A: 0.69 E/A: 1.90 E'Medial: 5.11 E/E' Med: 25.80 E' Laterial: 11.10 E/E' Lat: 11.90 Right Ventricle TAPSE (mm): 24.00 TVS' Butch: 11.00 Tricuspid Valve TR Pk Butch: 2.82 TR Pk Grad: 32.00 RA Press: 3.00 RVSP: 39.00 Great Vessels Aorta Ao Root-2D: 3.00 2.0-3.7 cm Ao Asc: 3.00 2.1-3.4 cm Pulmonary Valve PV Pk Butch: 1.58 Peak PV Grad: 10.00 Updated in Other Vendor System with Status of Final Hermes Hermosillo MD electronically signed on 02/12/2023 9:29:12 AM with status of Final
== END ==
LOC: HO.CARD 13:01
PROVIDERS: PCP Internal Medicine; Visit Provider Internal Medicine
DX: I35.0 Nonrheumatic aortic (valve) stenosis (principal)
CPT/HCPCS: 93306

== ENCOUNTER → 2023-03-21 13:56 | Outpatient (BNVA) | payer MEDICARE, SELFPAY | PROVIDERS: PCP Internal Medicine; Referring Provider Internal Medicine; Visit Provider Internal Medicine | DX: I35.0 Nonrheumatic aortic (valve) stenosis (principal); I48.92 Unspecified atrial flutter; I05.9 Rheumatic mitral valve disease, unspecified; Z79.01 Long term (current) use of anticoagulants | CPT/HCPCS: 99212 ==

== ENCOUNTER → 2023-05-13 12:43 | Outpatient (REF) | payer MEDICARE, SELFPAY ==
--- NOTE | 2023-05-13 12:46 | CA_ITS ---
Transthoracic Echocardiogram Patient (Last, First, Middle): Alondra Kaye J Gender: Female Date of : 1940 Age: 82 Procedure Date: 05/13/2023 Procedure Type: Transthoracic Echocardiogram Location: OP Height: 167.64 cm Weight: 66.68 kg BSA: 1.75 m2 Heart Rate: bpm BP: 145 / 90 mmHg Table Inspector: JEWELL Referring MD: Cristian Jiménez MD Manager General: Gabe Correa MD Symptoms: S/P TRANSAORTIC VALVE REPLACEMENT Study Quality: Adequate ECG Rhythm: Atrial Fibrillation Conclusions: - 1. Low normal LV systolic function with LVEF of 50-55% with restrictive filling pattern 2. Mildly dilated left atrium 3. Bioprosthetic aortic valve in place with mean gradient of 16 mmHg with suggestion of mild patient prosthesis mismatch 4. Normal RV systolic pressure with mildly elevated right atrial pressures 5. No gross pericardial effusion Findings Left Ventricle Normal left ventricular cavity size. There is mildly increased left ventricular wall thickness. The left ventricular systolic function is low normal. The visually estimated ejection fraction is between 50-55%. Spectral Doppler is indicative of a restrictive filling pattern. Right Ventricle Normal right ventricular cavity size and systolic function. Atria The left atrium is mildly dilated. There is lipomatous hypertrophy of the interatrial septum. Interatrial shunt cannot be excluded. The right atrium is likely dilated. Aortic Valve A bioprosthetic aortic valve is present. The aortic valve was not well visualized. There is no aortic valve regurgitation. the valve is well seated without any abnormal rocking motion. The mean gradient, average across multiple cycles at 16 mmHg which is slightly elevated for bioprosthetic aortic valve, with all aortic ejection time consistent with mild patient prosthesis mismatch Mitral Valve There is mild anterior and posterior mitral leaflet thickening. There is mild anterior mitral annular calcification. There is moderate mitral annular calcification. There is mild mitral valve regurgitation. There is no mitral valve stenosis. Pulmonic Valve The pulmonic valve is likely normal. Tricuspid Valve Normal tricuspid valve structure. There is mild tricuspid valve regurgitation. The right ventricular systolic pressure is normal. The right ventricular systolic pressure is 33 mmHg. Mildly elevated right atrial pressure. There is no evidence of pulmonary hypertension. Great Vessels All visible segments of the aorta are normal in size. The pulmonary artery was not well visualized. Venous The inferior vena cava is mildly dilated and collapses greater than 50% with inspiration. Pericardium/Pleural There is no evidence of pericardial effusion. Prior Study Comparison Changes noted compared to prior study. LV systolic function is marginally reduced. A bioprosthetic valve has replaced severe [place] aortic stenosis with mean gradient across bioprosthetic valve of 16 mmHg Measurements 2D Linear Measurements IVSd: 1.24 0.6-0.9/0.6-1.0 cm LVIDd: 4.55 3.9-5.3/4.2-5.9 cm LVIDd Index: 2.60 2.4-3.2/2.2-3.1 cm/m2 LVIDs: 3.59 2.0-3.6 cm LVPWd: 1.23 0.7-1.1 cm LA Diam: 3.60 2.7-3.8/3.0-4.0 cm LAIDs Index: 2.06 1.5-2.3 cm/m2 LV Mass: 261.82 67-162/88-224 g LV Mass Index: 149.61 43-95/49-115 g/m2 LVOT Diam: 2.00 3.0+(-)1.3 cm 2D Systolic Function EF 4C: 45.00 >55% EF 2C: 57.40 >55% EF BiP: 51.20 >55% Mitral Valve MV VTI: 0.40 MV Pk Butch: 1.76 MV Mn Butch: 0.97 MV Pk Grad: 12.00 MV Mn Grad: 5.00 MV Pk E: 1.47 MV Decel Time: 252.00 E'Lateral: 7.36 E'Medial: 6.13 E/E' Med: 24.00 E/E' Lat: 20.00 PHT: 74.00 MVA PHT: 2.97 MVA Continuity: 1.97 Decel Trego: 6.04 Aortic Valve AoV Pk Butch: 2.76 AoV Mn Butch: 1.84 AoV VTI: 0.62 AoV Pk Grad: 30.00 Aov Mn Grad: 16.00 MAXIMO Cont.VTI: 1.26 LVOT LVOT Pk Butch: 1.16 LVOT Mn Butch: 0.74 LVOT VTI: 0.25 LVOT Pk Grad: 5.00 LVOT Mn Grad: 3.00 LVOT Diam: 2.00 LVOT Area: 3.14 Diastolic Function MV Pk E: 1.47 E'Medial: 6.13 E/E' Med: 24.00 E' Laterial: 7.36 E/E' Lat: 20.00 Right Ventricle TAPSE (mm): 15.40 TVS' Butch: 9.28 Tricuspid Valve TR Pk Butch: 2.49 TR Pk Grad: 25.00 RA Press: 8.00 RVSP: 33.00 Great Vessels Aorta Ao Asc: 2.90 2.1-3.4 cm Updated in Other Vendor System with Status of Final Gabe Correa MD electronically signed on 05/14/2023 10:37:09 AM with status of Final
== END ==
LOC: HO.CARD 12:43
PROVIDERS: PCP Internal Medicine; Visit Provider Internal Medicine Interventional Cardiology
DX: Z95.4 Presence of other heart-valve replacement (principal)
CPT/HCPCS: 93306

== ENCOUNTER → 2023-05-13 12:46 | Outpatient (BNV) | payer MEDICARE, SELFPAY | PROVIDERS: PCP Internal Medicine; Visit Provider Internal Medicine Cardiovascular Disease | DX: I34.0 Nonrheumatic mitral (valve) insufficiency (principal); I36.1 Nonrheumatic tricuspid (valve) insufficiency | CPT/HCPCS: 93306 ==

== ENCOUNTER 2023-05-14 10:26 | Outpatient (AMB) | payer MEDICARE, SELFPAY ==
--- NOTE | 2023-05-14 10:34 | A.OFFVIS_ITS ---
Intake Vital Signs 05/14/23 10:35 Height 5 ft 6.5 in BMI Reason not done Patient refused/unable BP 134/82 Blood Pressure Location Lt brachial Pulse 66 Intake Visit Reasons: hospital follow up Intake Note: hospital follow up Home Health Rn Required: No Allergies lisinopril [LISINOPRIL] Allergy (Mild, Verified 05/14/23 10:39) COUGH Oukjvqw-DQM-XuR Reductase Inhibitor [OHZSRRS-ZLN-JBG REDUCTASE INHIBITOR] Allergy (Mild, Verified 05/14/23 10:39) RASH cephalexin [Keflex] Allergy (Unknown, Verified 05/14/23 10:39) GI upset and pain hydrochlorothiazide Allergy (Unknown, Verified 05/14/23 10:39) unknown Sulfa (Sulfonamide Antibiotics) Allergy (Verified 05/14/23 10:39) Rash Medication List - Last Reconciled 05/14/23 by Hermes Hermosillo MD alendronate 70 mg PO WE@0600 apixaban (Eliquis) 5 mg PO BID aspirin (Adult Aspirin Regimen) 81 mg PO DAILY baclofen 5 mg PO BID PRN cholecalciferol (vitamin D3) (Vitamin D3) 50 mcg PO DAILY desonide 0.05% 1 appl See Protocol topical BID hydroxychloroquine 200 mg PO BID lactulose 15 grams PO BID latanoprost 0.005% 1 drp ophthalmic (eye) BEDTIME stvzrcqc-fdldynf-kjjs-lutein tabs PO prednisone 5 mg PO DAILY tramadol 25 mg PO TID PRN HPI HPI Comments History of Present Illness Details Joseline returns for follow-up regarding atrial flutter and aortic stenosis. Due to progressive symptoms of tiredness and fatigue as well as severe aortic stenosis, she underwent transcatheter aortic valve replacement. However, she still states there is no improvement and feels just about the same. Continues to be very tired. With regard to the atrial flutter, she has tried various medications including Multaq, flecainide as well as amiodarone. Then had ablation. Was on diltiazem and that led to some hypotension issues and it was stopped. Then try atenolol but did not feel good either. Overall, very nonspecific complaints of tiredness. [facility] Medical History Essential hypertension Nonrheumatic aortic (valve) stenosis Paroxysmal atrial flutter Psoriatic arthritis Surgical History History of hysterectomy History of knee surgery Family History Father CVD (cardiovascular disease) Mother No problems noted. Social History Household Members: None Housing: House Do you presently have visiting nurse or other home services: No Alcohol intake: never Patient Tobacco Use Status: Never used Tobacco e-Cigarette/Vaping Use: Never Used Second Hand Smoke Exposure: No service: No Current occupational status: retired Review of Systems Const Denies weakness ENT Denies dizziness Card Denies chest pain, Denies chest pain with activity, Denies syncope, Denies rapid heart rate, Denies pedal edema, Denies edema, Denies leg edema, Denies lightheadedness, Denies palpitations, Denies dyspnea, Denies dyspnea on exertion and Denies orthopnea Resp Denies cough, Denies dyspnea and Denies dyspnea on exertion GI Denies hematochezia and Denies change in stool character Musc Denies abnormal gait, Denies muscle cramps, Denies muscle weakness, Denies numbness, Denies radiating pain into limb and Denies tingling Neuro Denies abnormal gait, Denies dizziness, Denies syncope, Denies numbness, Denies tingling and Denies weakness Endo Denies palpitations Physical Exam Vital Signs: Last Vital Signs Pulse 66 05/14/23 10:35 BP 134/82 05/14/23 10:35 Const General: comfortable and no acute distress Orientation/consciousness: patient oriented x3 HEENT Other: Unremarkable Head: Yes normal to inspection Neck Neck: Yes normal visual inspection Chest Chest palpation & inspection: normal inspection of the chest Resp Auscultation: clear to auscultation bilaterally Cardio Palpation: normal PMI Heart sounds: S1 normal heart sound present, S2 normal heart sound present, no gallops, Murmur heart sound present systolic II/ and no rubs GI Palpation (GI): Soft to palpation Back/Spine/Pelvis Other: unremarkable Skin General skin exam: no rashes or lesions noted Neuro General: patient oriented x3 Extrem General: Yes normal to inspection Psych Mental Status: mental status grossly normal Assessment & Plan Assessment & Plan (1) Nonrheumatic aortic (valve) stenosis: Code(s): I35.0 - Nonrheumatic aortic (valve) stenosis Plan: Status post TAVR. Postprocedure echocardiogram with mean gradient of 16 mm Hg across aortic valve. Slightly elevated but within acceptable limits. Infective endocarditis prophylaxis. Aspirin for the next 6 months or so. (2) Paroxysmal atrial flutter: Code(s): I48.92 - Unspecified atrial flutter Plan: Status post ablation. She might be in atrial fibrillation or flutter based on auscultation. We will get a 7 day Holter. She was on Diltiazem for a while but because of hypotension that was stopped. Atenolol led to a lot of tiredness. Prior to this, she has had different antiarrhythmics but also has a history of pulmonary issues. Hence not much of options. Either way, she feels the same either in or out of atrial fibrillation. Otherwise, it seems that she was anemic and there was a question of GI blood loss when she was hospitalized at [facility].? Per discharge summary, she had endoscopy and that apparently showed esophagitis.? Did not require blood transfusions. We will keep Aspirin only short term. Not clear if taking PPIs. (3) Mitral annular calcification: Code(s): I05.9 - Rheumatic mitral valve disease, unspecified Plan: Moderate mitral annular calcification on the echocardiogram. No specific implications. Plan Discussed with son who came for appointment. Orders: Orders ECG 7 day holter monitor Today I48.0 - Paroxysmal atrial fibrillation Coding Level of Care Code Est Pt Level 4 (53244) Diagnoses Nonrheumatic aortic (valve) stenosis I35.0 Paroxysmal atrial flutter I48.92 Mitral annular calcification I05.9
[2023-05-14 10:35] VITALS: BP 134/82; PULSE 66
== END 2023-05-14 11:30 | disposition home or self-care (01) ==
PROVIDERS: PCP Internal Medicine; Visit Provider Internal Medicine
DX: I49.1 Atrial premature depolarization (principal)
CPT/HCPCS: 93244; 99214

== ENCOUNTER → 2023-05-14 10:26 | Outpatient (BNVA) | payer MEDICARE, SELFPAY | PROVIDERS: PCP Internal Medicine; Visit Provider Internal Medicine ==

== ENCOUNTER → 2023-05-14 11:07 | Outpatient (REF) | payer MEDICARE, SELFPAY ==
--- NOTE | 2023-05-14 11:11 | HM_ITS ---
Conclusion: 1. Patient was monitored for total period of 6 days and 22 hours 2. Baseline was normal sinus rhythm with average heart rate of 68 beats per minute 3. No significant pauses noted 4. Frequent PACs with total burden of 21% noted 5. Occasional PVCs noted with total burden of 1% 6. Patient reported to events with no clear reported symptoms correlating with isolated PACs or PVCs. [facility]
== END ==
LOC: HO.CARD 11:07
PROVIDERS: PCP Internal Medicine; Visit Provider Internal Medicine
DX: I48.0 Paroxysmal atrial fibrillation (principal); I35.0 Nonrheumatic aortic (valve) stenosis; I50.9 Heart failure, unspecified; I48.92 Unspecified atrial flutter
CPT/HCPCS: 93242; 99212

== ENCOUNTER 2023-07-04 13:39 | Outpatient (REF) | payer MEDICARE, SELFPAY ==
--- NOTE | ~2023-07-04 | XR_ITS ---
EXAMINATION: XR CERVICAL SPINE XR LUMBAR SPINE CLINICAL INFORMATION: Chronic cervical and lumbar pain, right-sided sciatica. COMPARISON: Cervical spine MR 06/18/2021, lumbar spine MR 09/20/2021, x-ray cervical spine 12/25/2017. TECHNIQUE: 3 views of the cervical spine. 2 AP and 2 lateral views of the lumbar spine. FINDINGS: CERVICAL SPINE: Status post ACDF at C3-C4. Hardware appears intact. Advanced degenerative changes at C3-C4 with grade 1 anterolisthesis of C3 on C4. Grade 1 anterolisthesis of C4 on C5. Multilevel degenerative changes with moderate loss of disc space height at C4-C5, C5-C6 and C6-C7. LUMBAR SPINE: Leftward curvature of the lumbar spine. Advanced degenerative changes with hypertrophic change in the bilateral sacroiliac joints. Facet arthritis in the cui-fb-bnvny lumbar spine. Atherosclerotic calcifications in the abdominal aorta, with distal abdominal aorta measuring possibly up to 2.7 cm in AP dimension. Ultrasound of the abdominal aorta recommended for further evaluation. Advanced multilevel degenerative changes throughout the lumbar spine with loss of disc space height and hypertrophic change most notable at L2-L3, L3-L4, L4-L5 and L5-S1. Redemonstration of concavity along the inferior endplate of L1 also present on 09/20/2021 MRI. History of right hemilaminectomy at L4-L5. XR/XR cervical spine 3V IMPRESSION: 1. Advanced multilevel degenerative changes in the lumbar spine. 2. Atherosclerotic calcifications in the abdominal aorta, with distal abdominal aorta measuring possibly up to 2.7 cm in AP dimension. Ultrasound of the abdominal aorta recommended for further evaluation. 3. Status post ACDF at C3-C4. Hardware appears intact. Grade 1 anterolisthesis of C3 on C4. 4. Advanced multilevel degenerative changes at C4-C7.
--- NOTE | ~2023-07-04 | XR_ITS ---
EXAMINATION: XR CERVICAL SPINE XR LUMBAR SPINE CLINICAL INFORMATION: Chronic cervical and lumbar pain, right-sided sciatica. COMPARISON: Cervical spine MR 06/18/2021, lumbar spine MR 09/20/2021, x-ray cervical spine 12/25/2017. TECHNIQUE: 3 views of the cervical spine. 2 AP and 2 lateral views of the lumbar spine. FINDINGS: CERVICAL SPINE: Status post ACDF at C3-C4. Hardware appears intact. Advanced degenerative changes at C3-C4 with grade 1 anterolisthesis of C3 on C4. Grade 1 anterolisthesis of C4 on C5. Multilevel degenerative changes with moderate loss of disc space height at C4-C5, C5-C6 and C6-C7. LUMBAR SPINE: Leftward curvature of the lumbar spine. Advanced degenerative changes with hypertrophic change in the bilateral sacroiliac joints. Facet arthritis in the hwm-zq-sbyiv lumbar spine. Atherosclerotic calcifications in the abdominal aorta, with distal abdominal aorta measuring possibly up to 2.7 cm in AP dimension. Ultrasound of the abdominal aorta recommended for further evaluation. Advanced multilevel degenerative changes throughout the lumbar spine with loss of disc space height and hypertrophic change most notable at L2-L3, L3-L4, L4-L5 and L5-S1. Redemonstration of concavity along the inferior endplate of L1 also present on 09/20/2021 MRI. History of right hemilaminectomy at L4-L5. XR/XR lumbar spine 2-3V IMPRESSION: 1. Advanced multilevel degenerative changes in the lumbar spine. 2. Atherosclerotic calcifications in the abdominal aorta, with distal abdominal aorta measuring possibly up to 2.7 cm in AP dimension. Ultrasound of the abdominal aorta recommended for further evaluation. 3. Status post ACDF at C3-C4. Hardware appears intact. Grade 1 anterolisthesis of C3 on C4. 4. Advanced multilevel degenerative changes at C4-C7.
== END 2023-07-04 13:40 | disposition home or self-care (01) ==
LOC: HO.XRAY 13:39
PROVIDERS: PCP Internal Medicine; Visit Provider Physician Assistant
DX: M54.2 Cervicalgia (principal); M54.31 Sciatica, right side
CPT/HCPCS: 72040; 72100

== ENCOUNTER 2023-07-31 10:07 | Outpatient (REF) | payer MEDICARE, SELFPAY ==
--- NOTE | ~2023-07-31 | US_ITS ---
EXAMINATION: US RETROPERITONEAL LIMITED (AORTA) CLINICAL INFORMATION: Abdominal aortic ectasia. COMPARISON: None available. TECHNIQUE: Hess-scale, color Doppler and spectral Doppler evaluation of the abdominal aorta. FINDINGS: Atherosclerotic aorta. The measurements of the aorta in maximum AP and transverse dimensions respectively are as follows: Proximal: 2.7 x 2.6 cm. Mid: 1.9 x 2.0 cm. Distal: 1.8 x 1.9 cm. PSV: 81.3 cm/s. The measurements of the common iliac arteries in maximum AP and TRV dimensions are as follows: Right Common Iliac Artery: 1.0 x 0.9 cm. Left Common Iliac Artery: 1.0 x 0.8 cm. US/US abdominal aortic aneurysm IMPRESSION: Atherosclerotic abdominal aorta without aneurysm.
--- NOTE | ~2023-07-31 | XR_ITS ---
EXAMINATION: XR KNEE, LEFT CLINICAL INFORMATION: Pain COMPARISON: Left knee radiograph from 12/25/2017 TECHNIQUE: Four views of the left knee. FINDINGS: Decreased bone mineral density which decreases sensitivity for fracture evaluation. No acute visible fracture or dislocation. Questionable intramedullary cortical thickening along the distal femoral diaphysis and metadiaphysis which may be projectional in etiology. Moderate to severe multicompartment degenerative changes. Chondrocalcinosis along the medial and lateral tibial plateau. Periarticular osteophytes aspect along the distal femoral condyle, superior and inferior margin of the patella, and tibial plateau. Narrowing of the medial lateral femorotibial and patellofemoral compartments. Slight enthesopathy at the quadriceps tendon insertion site. Joint spaces and alignment are otherwise maintained. Small knee joint effusion. Soft tissues are unremarkable. Atherosclerotic calcifications are noted. XR/XR knee LT 3V IMPRESSION: 1. Decreased bone mineral density which decreases sensitivity for fracture evaluation. 2. No acute visible fracture or dislocation. 3. Questionable intramedullary cortical thickening along the distal femoral diaphysis and metadiaphysis which may be projectional in etiology. If clinically warranted this can be further evaluated with MRI. 4. Moderate to severe multicompartment degenerative changes. 5. Small knee joint effusion.
== END 2023-07-31 10:08 | disposition home or self-care (01) ==
LOC: HO.US 10:07
PROVIDERS: PCP Internal Medicine; Visit Provider Internal Medicine
DX: M25.562 Pain in left knee (principal); I77.811 Abdominal aortic ectasia
CPT/HCPCS: 73562; 76706

== ENCOUNTER 2023-08-19 12:22 | Outpatient (AMB) | payer MEDICARE, SELFPAY ==
--- NOTE | 2023-08-19 12:44 | MHC.OFFVIS ---
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: No Accompanied by: Self / Same As Patient Allergies lisinopril [LISINOPRIL] Allergy (Mild, Verified 08/19/23 12:45) COUGH Xarqqqb-IUO-GuA Reductase Inhibitor [KPEFKWJ-DWG-TSE REDUCTASE INHIBITOR] Allergy (Mild, Verified 08/19/23 12:45) RASH cephalexin [Keflex] Allergy (Unknown, Verified 08/19/23 12:45) GI upset and pain hydrochlorothiazide Allergy (Unknown, Verified 08/19/23 12:45) unknown Sulfa (Sulfonamide Antibiotics) Allergy (Verified 08/19/23 12:45) Rash Medication List - Last Reconciled 08/19/23 by Hermes Hermosillo MD alendronate 70 mg PO WE@0600 apixaban (Eliquis) 5 mg PO BID baclofen 5 mg PO BID PRN cholecalciferol (vitamin D3) (Vitamin D3) 50 mcg PO DAILY desonide 0.05% 1 appl See Protocol topical BID hydroxychloroquine 200 mg PO BID lactulose 15 grams PO BID latanoprost 0.005% 1 drp ophthalmic (eye) BEDTIME ngkfqlhb-fieasej-bipc-lutein tabs PO omeprazole 20 mg PO BID prednisone 5 mg PO DAILY tramadol 25 mg PO TID PRN HPI HPI Comments History of Present Illness Details Joseline returns for follow-up regarding atrial flutter and aortic stenosis. Due to progressive symptoms of tiredness and fatigue as well as severe aortic stenosis, she underwent transcatheter aortic valve replacement. With regard to the atrial flutter, she has tried various medications including Multaq, flecainide as well as amiodarone. Then had ablation. Was on diltiazem and that led to some hypotension issues and it was stopped. Then tried atenolol but did not feel good either. Overall, various ostial symptoms including generalized weakness, tiredness extra. She also recently had some bleeding in the eye and after that, aspirin has been stopped. [facility] Medical History (Updated 08/19/23 @ 13:00 by Hermes Hermosillo MD) Atherosclerotic cardiovascular disease Essential hypertension Psoriatic arthritis Nonrheumatic aortic (valve) stenosis Paroxysmal atrial flutter Surgical History (Updated 08/19/23 @ 13:02 by Hermes Hermosillo MD) Status post transcatheter aortic valve replacement (TAVR) using bioprosthesis History of knee surgery History of hysterectomy Family History Father CVD (cardiovascular disease) Mother No problems noted. Social History Household Members: None Housing: House Do you presently have visiting nurse or other home services: No Alcohol intake: never Patient Tobacco Use Status: Never used Tobacco e-Cigarette/Vaping Use: Never Used Second Hand Smoke Exposure: No service: No Current occupational status: retired Review of Systems Const Denies weakness ENT Denies dizziness Card Denies chest pain, Denies chest pain with activity, Denies syncope, Denies rapid heart rate, Denies pedal edema, Denies edema, Denies leg edema, Denies lightheadedness, Denies palpitations, Denies dyspnea, Denies dyspnea on exertion and Denies orthopnea Resp Denies cough, Denies dyspnea and Denies dyspnea on exertion GI Denies hematochezia and Denies change in stool character Musc Denies abnormal gait, Denies muscle cramps, Denies muscle weakness, Denies numbness, Denies radiating pain into limb and Denies tingling Neuro Denies abnormal gait, Denies dizziness, Denies syncope, Denies numbness, Denies tingling and Denies weakness Endo Denies palpitations Physical Exam Vital Signs: Last Vital Signs Pulse 73 08/19/23 12:45 BP 146/76 H 08/19/23 12:45 Const General: comfortable and no acute distress Orientation/consciousness: patient oriented x3 HEENT Other: Unremarkable Head: Yes normal to inspection Neck Neck: Yes normal visual inspection Chest Chest palpation & inspection: normal inspection of the chest Resp Auscultation: clear to auscultation bilaterally Cardio Palpation: normal PMI Heart sounds: S1 normal heart sound present, S2 normal heart sound present, no gallops, Murmur heart sound present systolic II/ and no rubs GI Palpation (GI): Soft to palpation Back/Spine/Pelvis Other: unremarkable Skin General skin exam: no rashes or lesions noted Neuro General: patient oriented x3 Extrem General: Yes normal to inspection Psych Mental Status: mental status grossly normal Office Procedures EKG Details: EKG with probably sinus, 73/min, prolonged ME, IVCD. (less likely controlled flutter) [id number], Complete Assessment & Plan Assessment & Plan (1) Status post transcatheter aortic valve replacement (TAVR) using bioprosthesis: Code(s): Z95.3 - Presence of xenogenic heart valve Plan: Status post TAVR. Postprocedure echocardiogram with mean gradient of 16 mm Hg across aortic valve. Slightly elevated but within acceptable limits. Infective endocarditis prophylaxis. We can recheck echocardiogram before next visit. (2) Atherosclerotic cardiovascular disease: Code(s): I25.10 - Atherosclerotic heart disease of [place] coronary artery without angina pectoris Plan: Cardiac catheterization with moderate disease in the RCA, mid LAD, circumflex, severe D1 stenosis. Ideally statins but she has numerous muscle aches and hence not on any. Discussed about PCSK9 inhibitors but she states she has too much going on and not too keen either. (3) Paroxysmal atrial flutter: Code(s): I48.92 - Unspecified atrial flutter Plan: Status post ablation. Has tried several arrhythmics in the past and she also has a history of pulmonary fibrosis and not suitable for amiodarone. Could not tolerate diltiazem or atenolol and they contribute to various symptoms like low blood pressure, tiredness extra. She was on Diltiazem for a while but because of hypotension that was stopped. Atenolol led to a lot of tiredness. Prior to this, she has had different antiarrhythmics but also has a history of pulmonary issues. Hence not much of options. Either way, she feels the same either in or out of atrial fibrillation. No further changes today. (4) Mitral annular calcification: Code(s): I05.9 - Rheumatic mitral valve disease, unspecified Plan: Moderate mitral annular calcification on the echocardiogram. No specific implications. Orders: Orders CA echo transthoracic complete 03/23/24 I25.10 - Atherosclerotic heart disease of [place] coronary artery without angina pectoris, Z95.3 - Presence of xenogenic heart valve Coding Level of Care Code Est Pt Level 4 (05369) Diagnoses Status post transcatheter aortic valve replacement (TAVR) using bioprosthesis Z95.3 Atherosclerotic cardiovascular disease I25.10 Paroxysmal atrial flutter I48.92 Mitral annular calcification I05.9 CPT Codes EKG - CPT: 02074-[id number], Complete ([id number])
[2023-08-19 12:45] VITALS: BP 146/76; PULSE 73
== END 2023-08-19 13:09 | disposition home or self-care (01) ==
PROVIDERS: PCP Internal Medicine; Visit Provider Internal Medicine
DX: Z95.3 Presence of xenogenic heart valve (principal); I25.10 Atherosclerotic heart disease of native coronary artery without angina pectoris; I48.92 Unspecified atrial flutter; I05.9 Rheumatic mitral valve disease, unspecified
CPT/HCPCS: 93010; 99214

== ENCOUNTER → 2023-08-19 12:22 | Outpatient (BNVA) | payer MEDICARE, SELFPAY | PROVIDERS: PCP Internal Medicine; Visit Provider Internal Medicine | DX: I25.10 Atherosclerotic heart disease of native coronary artery without angina pectoris (principal); I48.92 Unspecified atrial flutter; I05.9 Rheumatic mitral valve disease, unspecified; Z95.3 Presence of xenogenic heart valve | CPT/HCPCS: 93005; 99212 ==

== ENCOUNTER 2023-08-28 17:37 | Outpatient (REF) | payer MEDICARE, SELFPAY ==
--- NOTE | ~2023-08-28 | MR_ITS ---
EXAMINATION: MR LUMBAR SPINE WITHOUT CONTRAST CLINICAL INFORMATION: Prior L4-L5 laminectomy, persistent pain right lower extremity. COMPARISON: MRI lumbar spine 09/20/2021, lumbar radiographs 07/04/2023. TECHNIQUE: MRI of the lumbar spine was obtained using routine sequences without the administration of intravenous contrast. FINDINGS: This examination assumes the presence of 5 lumbar-type vertebral bodies. For the purposes of this examination, the L5-S1 intervertebral disc space is visualized on axial series 7 image 29. The normal lumbar lordosis is preserved. Advanced levocurvature of the lumbar spine. There is mild left lateral listhesis of L4-L5. Trace anterolisthesis of L1-L2 and L4-L5. Inferior endplate height loss at L1 and superior endplate height loss at L2 appear comparable to the prior examination. No acute compression deformity. Diffusely heterogeneous marrow signal with multilevel degenerative endplate changes. Stable lesion at the L1 vertebral body that likely represents an intraosseous hemangioma. There is prominent right-sided posterior soft tissue edema at L4-L5 which may be related to evolving postoperative change. Asymmetric fatty atrophy of the right lower paraspinal musculature. The conus medullaris is normal in signal intensity and terminates at the level of L1-L2. The cauda equina nerve roots are within normal limits. T11-T12: Disc bulge without significant spinal canal stenosis. Minimal narrowing of the left neural foramen. T12-L1: Disc bulge with left central disc protrusion extending into left neural foramen. The spinal canal is not significantly narrowed. Facet arthropathy. There is foph-ft-vuoidtzb left neural foraminal stenosis with possible exiting nerve root impingement in the far lateral space. L1-L2: Disc bulge and osteophytic ridging with facet arthropathy and ligamentum flavum hypertrophy. There is mild spinal canal stenosis with narrowing of the lateral recesses. Mild right and moderate left neural foraminal stenosis. L2-L3: Disc bulge and facet arthropathy with ligamentum flavum redundancy. The right lateral recess is mildly narrowed. The central canal is otherwise patent. There is mild right neural foraminal stenosis. L3-L4: Disc bulge and osteophytic ridging which is eccentric to the right extending into the right neural foramen far lateral space. Facet arthropathy with ligamentum flavum redundancy. Likely prior right hemilaminectomy. The central spinal canal is not significantly narrowed. Asymmetric narrowing of the right lateral recess on the basis of scoliotic deformity. Moderate left and wrdoqcgi-ej-edklyf right neural foraminal stenosis with impingement of the exiting right L3 nerve root, unchanged. L4-L5: Prior posterior decompression. Disc bulge and osteophytic ridging which is eccentric to the right extending into the right greater than left neural foramen and far lateral spaces. Facet arthropathy. Narrowing of the left greater than right lateral recess. The central canal is otherwise patent. Severe right neural foraminal stenosis with exiting nerve root compression in the neural foramen and far lateral space. Severe left neural foraminal stenosis with exiting nerve root impingement. L5-S1: Disc bulge and osteophytic ridging. Advanced facet arthropathy with ligamentum flavum redundancy. There is narrowing of the left greater than right lateral recess with abutment of the descending left L1 nerve root. The central canal is otherwise patent. Severe bilateral neural foraminal stenosis with exiting nerve root impingement, unchanged. T2 hyperintense lesion in the inferior right hepatic lobe, likely a cyst. Subcentimeter T2 hypointense lesion along the midpole of the left kidney is indeterminate and may represent a cyst with hemorrhagic/proteinaceous debris. Punctate T2 hyperintense foci in the kidneys are dpf-ledlc-up-characterize but likely represent cysts. MR/MR lumbar spine wo con IMPRESSION: Prominent levocurvature of the lumbar spine with multilevel asymmetric degenerative changes as described above. No high-grade spinal canal stenosis. Multilevel severe neural foraminal stenoses with exiting nerve root impingement appear comparable to the prior examination as described above. Stable compression deformities along the inferior endplate of L1 superior endplate of L2.
== END 2023-08-28 17:38 | disposition home or self-care (01) ==
LOC: HO.MRI 17:37
PROVIDERS: PCP Internal Medicine; Visit Provider Physical Medicine & Rehabilitation
DX: M54.16 Radiculopathy, lumbar region (principal)
CPT/HCPCS: 72148

== ENCOUNTER 2023-12-23 13:44 | Outpatient (REF) | payer MEDICARE, SELFPAY ==
--- NOTE | ~2023-12-23 | MR_ITS ---
EXAMINATION: MR CERVICAL SPINE WITHOUT CONTRAST CLINICAL INFORMATION: Neck pain. Bilateral arm radicular symptoms. COMPARISON: MRI dated 06/18/2021. TECHNIQUE: Multiplanar, multisequential imaging of the cervical spine was performed without contrast. Limited study with motion artifacts. FINDINGS: VERTEBRAL BODIES AND PARASPINAL SOFT TISSUES: Anterior cervical fusion hardware is in place at the C3-C4 level. Previous anterolisthesis is reduced with a slight slippage on the current exam. Extensive multilevel disc degeneration again evident with a moderate rightward curvature of the cervical spine centered at the C4 level. Reversal of the normal cervical lordosis also evident. There are no compression fractures. Severe loss of disc height evident at the upper thoracic levels as well with mixed chronic and mild edematous endplate changes. The paraspinal soft tissues are normal. The vertebral artery flow-voids are maintained. The imaged lung apices are grossly clear. CERVICOMEDULLARY JUNCTION AND VISUALIZED POSTERIOR FOSSA: The craniovertebral junction and imaged portions of the brain demonstrate no acute abnormality. Focal myelomalacia noted within the cord at the C3-C4 level. There is no syrinx. SPINAL LEVELS: C2-C3: Mild posterior disc bulge with cmmxqtjc-jn-neqcsu facet arthropathy, worse on the right side. No significant central canal stenosis. Mild right foraminal narrowing remains stable. C3-C4: Anterior cervical fusion hardware in place with a mild residual anterolisthesis, improved compared to preoperative imaging. Residual gwgw-xo-sadgeeme central canal stenosis and significant bilateral foraminal narrowing with facet arthropathy. C4-C5: Anterolisthesis and severe loss of disc height with thickening of the ligamentum flavum results in worsened wyoiohsy-ao-bxiufe central canal stenosis with significant bilateral foraminal narrowing and hypertrophic facet arthropathy. C5-C6: Severe disc space narrowing and retrosubluxation with a disc-osteophyte complex resulting in mild central canal stenosis and severe bilateral foraminal encroachment, worse on the right side. Findings are relatively stable. C6-C7: Severe loss of disc height and posterior ligamentous thickening with facet arthropathy results in worsened moderate central canal stenosis with iextnnlz-bo-shstgr left foraminal narrowing and ihlz-nz-qkjcvnxk right foraminal encroachment. C7-T1: No significant disc pathology. No central canal stenosis. Facet arthropathy with mild left foraminal encroachment. MR/MR cervical spine wo con IMPRESSION: 1. Limited study with motion artifacts. Moderate rightward curvature of the cervical spine centered at the C4 level. Additional reversal of the normal cervical lordosis. 2. Status post anterior cervical discectomy and fusion at the C3-C4 level with a mild residual anterolisthesis and improved ttnf-tn-qkrxjyks central canal stenosis. Focal myelomalacia and cord atrophy at this level. Severe foraminal narrowing. 3. Slightly progressed anterolisthesis at the C4-C5 level with severe loss of disc height and worsened pwlmjlro-ai-tuyvhw central canal stenosis with significant bilateral foraminal narrowing. 4. Worsened moderate central canal stenosis and spondylitic changes at the C6-C7 level with hmjrddbr-gm-oihiea left foraminal narrowing. 5. Stable severe spondylosis at the C5-C6 level with mild central canal stenosis and significant foraminal narrowing.
== END 2023-12-23 13:45 | disposition home or self-care (01) ==
LOC: HO.MRI 13:44
PROVIDERS: PCP Internal Medicine; Visit Provider Physical Medicine & Rehabilitation
DX: M47.13 Other spondylosis with myelopathy, cervicothoracic region (principal)
CPT/HCPCS: 72141

== ENCOUNTER → 2024-05-21 13:44 | Outpatient (REF) | payer MEDICARE, SELFPAY ==
--- NOTE | 2024-05-21 13:51 | CA_ITS ---
Transthoracic Echocardiogram Patient (Last, First, Middle): Alondra Kaye J Gender: Female Date of : 1940 Age: 83 Procedure Date: 05/21/2024 Procedure Type: Transthoracic Echocardiogram Location: OP Height: 167.64 cm Weight: 63.96 kg BSA: 1.72 m2 Heart Rate: bpm BP: 130 / 60 mmHg Pad Tufter: JEWELL Referring MD: Hermes Hermosillo MD Electronics System Mechanic: Gabe Correa MD Symptoms: I25.10 - Atherosclerotic heart disease of [place] coronary artery without... Study Quality: Adequate ECG Rhythm: Ventriculary paced rhythm Conclusions: - 1. Low normal LV ejection fraction 50-55% with grade 3 diastolic dysfunction 2. Moderately reduced RV systolic function 3. Mildly dilated right and left atrium 4. Bioprosthetic aortic valve with mean gradient of 16 mm Hg which is elevated could suggest patient prosthesis mismatch Number 5 upper limits of normal RV systolic pressure with mildly elevated right atrial pressures 6. No gross pericardial effusion Findings Left Ventricle Normal left ventricular cavity size. There is mildly increased left ventricular wall thickness. The left ventricular systolic function is low normal. The visually estimated ejection fraction is between 50-55%. There is paradoxical septal motion consistent with a right ventricular pacemaker. Spectral Doppler is indicative of a restrictive filling pattern. E/E prime ratio is >15, consistent with elevated filling pressures. Evidence suggests grade III (severe) diastolic dysfunction. Right Ventricle Normal right ventricular cavity size. There is moderately decreased right ventricular systolic function. There is a pacemaker wire seen in the right ventricle. Atria The left atrium is mildly dilated. There is no evidence of interatrial shunt. The right atrium is mildly dilated. A pacemaker wire is identified in the right atrium. Aortic Valve A bioprosthetic aortic valve is present. The mean gradient is 16 mmHg. There is trace (trivial) aortic valve regurgitation. the mean gradients are elevated for bioprosthetic valve, could represent patient prosthesis mismatch, subacute thrombosis can not be ruled out. Mitral Valve There is mild anterior and moderate posterior mitral leaflet thickening. There is moderate mitral annular calcification. There is mild mitral valve regurgitation. There is no mitral valve stenosis. Pulmonic Valve The pulmonic valve is likely normal. Tricuspid Valve Normal tricuspid valve structure. There is mild tricuspid valve regurgitation. Mildly elevated right atrial pressure. Great Vessels The pulmonary artery was not well visualized. There is no dilatation of the ascending aorta measuring 3.20 cm. Venous The inferior vena cava is mildly dilated and collapses greater than 50% with inspiration. Pericardium/Pleural There is no evidence of pericardial effusion. Prior Study Comparison No significant change compared to prior study dated: 05/13/2023. no significant changes Measurements 2D Linear Measurements IVSd: 1.23 0.6-0.9/0.6-1.0 cm LVIDd: 4.27 3.9-5.3/4.2-5.9 cm LVIDd Index: 2.48 2.4-3.2/2.2-3.1 cm/m2 LVIDs: 3.17 2.0-3.6 cm LVPWd: 1.16 0.7-1.1 cm LA Diam: 4.10 2.7-3.8/3.0-4.0 cm LAIDs Index: 2.38 1.5-2.3 cm/m2 LV Mass: 226.26 67-162/88-224 g LV Mass Index: 131.54 43-95/49-115 g/m2 LVOT Diam: 2.00 3.0+(-)1.3 cm 2D Systolic Function EF 4C: 48.10 >55% EF 2C: 55.00 >55% EF BiP: 51.50 >55% Mitral Valve MV VTI: 0.45 MV Pk Butch: 1.50 MV Mn Butch: 0.82 MV Pk Grad: 9.00 MV Mn Grad: 3.00 MV Pk E: 1.32 MV Decel Time: 210.00 E'Lateral: 7.57 E'Medial: 3.62 E/E' Med: 36.50 E/E' Lat: 17.40 PHT: 61.00 MVA PHT: 3.61 MVA Continuity: 1.62 Decel Rock: 6.37 Aortic Valve AoV Pk Butch: 2.76 AoV Mn Butch: 1.88 AoV VTI: 0.65 AoV Pk Grad: 30.00 Aov Mn Grad: 16.00 MAXIMO Cont.VTI: 1.11 LVOT LVOT Pk Butch: 0.93 LVOT Mn Butch: 0.68 LVOT VTI: 0.23 LVOT Pk Grad: 3.00 LVOT Mn Grad: 2.00 LVOT Diam: 2.00 LVOT Area: 3.14 Diastolic Function MV Pk E: 1.32 E'Medial: 3.62 E/E' Med: 36.50 E' Laterial: 7.57 E/E' Lat: 17.40 Right Ventricle TAPSE (mm): 12.20 TVS' Butch: 7.05 Tricuspid Valve TR Pk Butch: 2.60 TR Pk Grad: 27.00 RA Press: 8.00 RVSP: 35.00 Great Vessels Aorta Ao Asc: 3.20 2.1-3.4 cm Updated in Other Vendor System with Status of Final Gabe Correa MD electronically signed on 05/22/2024 10:18:49 AM with status of Final
== END ==
LOC: HO.CARD 13:44
PROVIDERS: PCP Internal Medicine; Visit Provider Internal Medicine
DX: I25.10 Atherosclerotic heart disease of native coronary artery without angina pectoris (principal); Z95.3 Presence of xenogenic heart valve
CPT/HCPCS: 93306

== ENCOUNTER → 2024-05-21 13:51 | Outpatient (BNV) | payer MEDICARE, SELFPAY | PROVIDERS: PCP Internal Medicine; Visit Provider Internal Medicine Cardiovascular Disease | DX: T82.09XA Other mechanical complication of heart valve prosthesis, initial encounter (principal); I34.0 Nonrheumatic mitral (valve) insufficiency; I36.1 Nonrheumatic tricuspid (valve) insufficiency; I51.89 Other ill-defined heart diseases | CPT/HCPCS: 93306 ==

== ENCOUNTER → 2024-07-07 14:26 | Outpatient (BNVA) | payer MEDICARE, SELFPAY | PROVIDERS: PCP Internal Medicine; Visit Provider Internal Medicine | DX: I25.10 Atherosclerotic heart disease of native coronary artery without angina pectoris (principal); I48.92 Unspecified atrial flutter; Z95.0 Presence of cardiac pacemaker; Z95.3 Presence of xenogenic heart valve | CPT/HCPCS: 93005; 99212 ==

== ENCOUNTER → 2024-08-11 23:59 | Outpatient (BNV) | payer MEDICARE, SELFPAY ==
--- NOTE | 2024-08-16 18:48 | MHC.OFFVIS ---
Intake Visit Reasons: Remote ICD device check Allergies lisinopril [LISINOPRIL] Allergy (Mild, Verified 08/19/23 12:45) COUGH Sjikmpo-FSM-GiU Reductase Inhibitor [FBOUBEW-DQC-BAV REDUCTASE INHIBITOR] Allergy (Mild, Verified 08/19/23 12:45) RASH cephalexin [Keflex] Allergy (Unknown, Verified 08/19/23 12:45) GI upset and pain hydrochlorothiazide Allergy (Unknown, Verified 08/19/23 12:45) unknown Sulfa (Sulfonamide Antibiotics) Allergy (Verified 08/19/23 12:45) Rash [facility] Medical History (Updated 07/07/24 @ 15:16 by Hermes Hermosillo MD) Atherosclerotic cardiovascular disease Essential hypertension Psoriatic arthritis Nonrheumatic aortic (valve) stenosis Paroxysmal atrial flutter Surgical History Status post transcatheter aortic valve replacement (TAVR) using bioprosthesis History of knee surgery History of hysterectomy Family History Father CVD (cardiovascular disease) Mother No problems noted. Social History Household Members: None Housing: House Do you presently have visiting nurse or other home services: No Alcohol intake: never Patient Tobacco Use Status: Never used Tobacco e-Cigarette/Vaping Use: Never Used Second Hand Smoke Exposure: No service: No Current occupational status: retired Office Procedures Cardiac Device Check Cardiac Device Check Details: Date of service- 08/11/2024 ; Battery life >11 years; normal lead parameters; AP >77%; REPLENISHMENT ASSOCIATE >90%; no significant arrhythmias. Overall normal device function. [id number] Cardiac Device Interrogation, pacemaker Procedure code (CPT) selection complete Assessment & Plan Assessment & Plan (1) Pacemaker: Code(s): Z95.0 - Presence of cardiac pacemaker Category: Medical (2) Paroxysmal atrial flutter: Code(s): I48.92 - Unspecified atrial flutter Category: Medical Plan x Coding Level of Care Code Procedure Only Diagnoses Pacemaker Z95.0 Paroxysmal atrial flutter I48.92 CPT Codes Cardiac Device Check - Cardiac Device 12: [id number] Cardiac Device Interrogation, pacemaker ([id number])
== END ==
PROVIDERS: PCP Internal Medicine; Visit Provider Internal Medicine
DX: I48.92 Unspecified atrial flutter (principal); Z95.0 Presence of cardiac pacemaker
CPT/HCPCS: 93294

== ENCOUNTER → 2024-10-09 23:59 | Outpatient (BNV) | payer MEDICARE, SELFPAY ==
--- NOTE | 2024-10-13 11:46 | MHC.OFFVIS ---
Intake Visit Reasons: Remote ICD device check Allergies lisinopril [LISINOPRIL] Allergy (Mild, Verified 08/19/23 12:45) COUGH Dafixmm-XNZ-FnE Reductase Inhibitor [XCJYQOV-FFK-GRW REDUCTASE INHIBITOR] Allergy (Mild, Verified 08/19/23 12:45) RASH cephalexin [Keflex] Allergy (Unknown, Verified 08/19/23 12:45) GI upset and pain hydrochlorothiazide Allergy (Unknown, Verified 08/19/23 12:45) unknown Sulfa (Sulfonamide Antibiotics) Allergy (Verified 08/19/23 12:45) Rash [facility] Medical History (Updated 07/07/24 @ 15:16 by Hermes Hermosillo MD) Atherosclerotic cardiovascular disease Essential hypertension Psoriatic arthritis Nonrheumatic aortic (valve) stenosis Paroxysmal atrial flutter Surgical History Status post transcatheter aortic valve replacement (TAVR) using bioprosthesis History of knee surgery History of hysterectomy Family History Father CVD (cardiovascular disease) Mother No problems noted. Social History Household Members: None Housing: House Do you presently have visiting nurse or other home services: No Alcohol intake: never Patient Tobacco Use Status: Never used Tobacco e-Cigarette/Vaping Use: Never Used Second Hand Smoke Exposure: No service: No Current occupational status: retired Office Procedures Cardiac Device Check Cardiac Device Check Details: Date of service- 10/09/2024 ; Battery life >11 years; normal lead parameters; AP 67%; COM WRITER 94%; time in AT/AF 1.1%. Overall normal device function. [id number] Cardiac Device Interrogation, pacemaker Procedure code (CPT) selection complete Assessment & Plan Assessment & Plan (1) Pacemaker: Code(s): Z95.0 - Presence of cardiac pacemaker Category: Medical (2) Paroxysmal atrial flutter: Code(s): I48.92 - Unspecified atrial flutter Category: Medical Plan x Coding Level of Care Code Procedure Only Diagnoses Pacemaker Z95.0 Paroxysmal atrial flutter I48.92 CPT Codes Cardiac Device Check - Cardiac Device 12: [id number] Cardiac Device Interrogation, pacemaker ([id number])
== END ==
PROVIDERS: PCP Internal Medicine; Visit Provider Internal Medicine
DX: I48.92 Unspecified atrial flutter (principal); Z95.0 Presence of cardiac pacemaker
CPT/HCPCS: 93294

== ENCOUNTER → 2025-01-07 23:59 | Outpatient (BNV) | payer MEDICARE, SELFPAY ==
--- NOTE | 2025-01-20 21:01 | A.OFFVIS_ITS ---
Intake Visit Reasons: Remote ICD check- [employer] Allergies lisinopril [LISINOPRIL] Allergy (Mild, Verified 08/19/23 12:45) COUGH Lgklrzk-GPE-PjS Reductase Inhibitor [ZFRIVFO-TOT-MPF REDUCTASE INHIBITOR] Allergy (Mild, Verified 08/19/23 12:45) RASH cephalexin [Keflex] Allergy (Unknown, Verified 08/19/23 12:45) GI upset and pain hydrochlorothiazide Allergy (Unknown, Verified 08/19/23 12:45) unknown Sulfa (Sulfonamide Antibiotics) Allergy (Verified 08/19/23 12:45) Rash [facility] Medical History (Updated 07/07/24 @ 15:16 by Hermes Hermosillo MD) Atherosclerotic cardiovascular disease Essential hypertension Psoriatic arthritis Nonrheumatic aortic (valve) stenosis Paroxysmal atrial flutter Surgical History Status post transcatheter aortic valve replacement (TAVR) using bioprosthesis History of knee surgery History of hysterectomy Family History Father CVD (cardiovascular disease) Mother No problems noted. Social History Household Members: None Housing: House Do you presently have visiting nurse or other home services: No Alcohol intake: never Patient Tobacco Use Status: Never used Tobacco e-Cigarette/Vaping Use: Never Used Second Hand Smoke Exposure: No service: No Current occupational status: retired Office Procedures Cardiac Device Check Cardiac Device Check Details: Date of service- 01/07/2025 ; Battery life >11 years; normal lead parameters; AP 0.5 %; DUMP GROUNDS CHECKER 92%; no significant arrhythmias. Overall normal device function. [id number] Cardiac Device Interrogation, pacemaker Procedure code (CPT) selection complete Assessment & Plan Assessment & Plan (1) Pacemaker: Code(s): Z95.0 - Presence of cardiac pacemaker Category: Medical (2) Paroxysmal atrial flutter: Code(s): I48.92 - Unspecified atrial flutter Category: Medical Plan x Coding Level of Care Code Procedure Only Diagnoses Pacemaker Z95.0 Paroxysmal atrial flutter I48.92 CPT Codes Cardiac Device Check - Cardiac Device 12: [id number] Cardiac Device Interrogation, pacemaker ([id number])
== END ==
PROVIDERS: PCP Internal Medicine; Visit Provider Internal Medicine
DX: I48.92 Unspecified atrial flutter (principal); Z95.0 Presence of cardiac pacemaker
CPT/HCPCS: 93294

== ENCOUNTER 2025-02-01 13:42 | Outpatient (AMB) | payer MEDICARE, SELFPAY ==
[2025-02-01 14:03] VITALS: BP 118/60; PULSE 68
--- NOTE | 2025-02-01 14:03 | A.OFFVIS_ITS ---
Vital Signs 02/01/25 14:03 Height 5 ft 6 in BMI Reason not done Patient refused/unable BP 118/60 Blood Pressure Location Lt brachial Position Sitting Pulse 68 Pulse Source Pulse Oximeter Intake Visit Reasons: 7 mth w/ medtronic ck Allergies lisinopril [LISINOPRIL] Allergy (Mild, Verified 08/19/23 12:45) COUGH Ijryrjl-JUC-ZsD Reductase Inhibitor [NSOOKBC-YKY-ODA REDUCTASE INHIBITOR] Allergy (Mild, Verified 08/19/23 12:45) RASH cephalexin [Keflex] Allergy (Unknown, Verified 08/19/23 12:45) GI upset and pain hydrochlorothiazide Allergy (Unknown, Verified 08/19/23 12:45) unknown Sulfa (Sulfonamide Antibiotics) Allergy (Verified 08/19/23 12:45) Rash Medication List - Last Reconciled 02/01/25 by Hermes Hermosillo MD apixaban (Eliquis) 5 mg PO BID baclofen 5 mg PO BID cholecalciferol (vitamin D3) (Vitamin D3) 50 mcg PO DAILY dorzolamide 2% 1 drp ophthalmic (eye) TID hydroxychloroquine 200 mg PO BID lactulose 15 grams PO BID PRN latanoprost 0.005% 1 drp ophthalmic (eye) BEDTIME prednisone 5 mg PO DAILY HPI Comments Details: Joseline returns for follow-up. Has had various issues in the past. She had recurring atrial flutter and had tried various antiarrhythmics including Multaq, flecainide, amiodarone and then eventually had ablation. Then tried medications at different times including Diltiazem and Atenolol but more recently not on anything. Patient states atenolol was stopped after low blood pressure issues. Otherwise, she also had severe aortic stenosis and other symptoms like fatigue and tiredness. This led to transcatheter aortic valve replacement in 2022. In 2023, she had complete heart block and that led to permanent pacemaker placement. She still has various complaints like generalized weakness, fatigue, aches and pains which is all musculoskeletal. No clear-cut cardiac concerns. [facility] Medical History (Updated 07/07/24 @ 15:16 by Hermes Hermosillo MD) Atherosclerotic cardiovascular disease Essential hypertension Psoriatic arthritis Nonrheumatic aortic (valve) stenosis Paroxysmal atrial flutter Surgical History Status post transcatheter aortic valve replacement (TAVR) using bioprosthesis History of knee surgery History of hysterectomy Family History Father CVD (cardiovascular disease) Mother No problems noted. Social History Household Members: None Housing: House Do you presently have visiting nurse or other home services: No Alcohol intake: never Patient Tobacco Use Status: Never used Tobacco e-Cigarette/Vaping Use: Never Used Second Hand Smoke Exposure: No service: No Current occupational status: retired Review of Systems Const Denies weakness ENT Denies dizziness Card Denies chest pain, Denies chest pain with activity, Denies syncope, Denies rapid heart rate, Denies pedal edema, Denies edema, Denies leg edema, Denies lightheadedness, Denies palpitations, Denies dyspnea, Denies dyspnea on exertion and Denies orthopnea Resp Denies cough, Denies dyspnea and Denies dyspnea on exertion GI Denies hematochezia and Denies change in stool character Musc Denies abnormal gait, Denies muscle cramps, Denies muscle weakness, Denies numbness, Denies radiating pain into limb and Denies tingling Neuro Denies abnormal gait, Denies dizziness, Denies syncope, Denies numbness, Denies tingling and Denies weakness Endo Denies palpitations Physical Exam Vital Signs: Last Vital Signs Pulse 68 02/01/25 14:03 BP 118/60 02/01/25 14:03 Const General: comfortable and no acute distress Orientation/consciousness: patient oriented x3 HEENT Other: Unremarkable Head: Yes normal to inspection Neck Neck: Yes normal visual inspection Chest Chest palpation & inspection: normal inspection of the chest Resp Auscultation: clear to auscultation bilaterally Cardio Palpation: normal PMI Heart sounds: S1 normal heart sound present, S2 normal heart sound present, no gallops, Murmur heart sound present systolic I/ and at the right sternal bor jeny and no rubs GI Palpation (GI): Soft to palpation Back/Spine/Pelvis Other: unremarkable Skin General skin exam: no rashes or lesions noted Neuro General: patient oriented x3 Extrem General: Yes normal to inspection Psych Mental Status: mental status grossly normal Office Procedures Cardiac Device Check Cardiac Device Check Details: Pacemaker interrogated today. Dual-chamber device, programmed DDDR mode. Battery status more than 11 years. Normal lead parameters. 80s/AF-43%. For the last 3 months or so, in atrial fibrillation. Overall[place]. [id number] Cardiac Device Check, pacemaker dual lead Procedure code (CPT) selection complete Assessment & Plan Assessment & Plan (1) Status post transcatheter aortic valve replacement (TAVR) using bioprosthesis: Code(s): Z95.3 - Presence of xenogenic heart valve Category: Surgical Plan: Status post TAVR. Stable. Infective endocarditis prophylaxis per protocol. Per last echocardiogram, mean gradient across the valve is 16 mm Hg. (2) Atherosclerotic cardiovascular disease: Code(s): I25.10 - Atherosclerotic heart disease of [place] coronary artery without angina pectoris Category: Medical Plan: Cardiac catheterization with moderate disease in the RCA, mid LAD, circumflex, severe D1 stenosis. Ideally statins but she has numerous muscle aches and hence not on any. Not interested in PCSK9 inhibitors. (3) Paroxysmal atrial flutter: Code(s): I48.92 - Unspecified atrial flutter Category: Medical Plan: Status post ablation. Has tried several arrhythmics in the past and she also has a history of pulmonary fibrosis and not suitable for Amiodarone. Could not tolerate diltiazem or atenolol and they contribute to various symptoms like low blood pressure, tiredness extra. Also, she feels the same either in atrial fibrillation or sinus. No specific management at this time. Continue Eliquis. (4) Pacemaker: Code(s): Z95.0 - Presence of cardiac pacemaker Category: Medical Plan: Per documentation, complete heart block leading to pacemaker. We will follow on remote monitoring. Plan She states it is very difficult for her to come for appointments and wants to minimize everything. Hence we will do in one year. She also wants to do the echocardiogram on the same day as the clinic visit. Orders: Orders CA echo transthoracic complete Today Z95.3 - Presence of xenogenic heart valve Coding Level of Care Code Est Pt Level 4 (95013) Complex EM visit Add On G2211 Diagnoses Status post transcatheter aortic valve replacement (TAVR) using bioprosthesis Z95.3 Atherosclerotic cardiovascular disease I25.10 Paroxysmal atrial flutter I48.92 Pacemaker Z95.0 CPT Codes Cardiac Device Check - Cardiac Device 2: [id number] Cardiac Device Check, pacemaker dual lead ([id number])
== END 2025-02-01 14:40 | disposition home or self-care (01) ==
LOC: HO.HCS 13:42
PROVIDERS: PCP Family Medicine; Visit Provider Internal Medicine
DX: I25.10 Atherosclerotic heart disease of native coronary artery without angina pectoris (principal); Z95.3 Presence of xenogenic heart valve; I48.92 Unspecified atrial flutter; Z95.0 Presence of cardiac pacemaker
CPT/HCPCS: 93280; 99214; G2211

== ENCOUNTER → 2025-02-01 13:42 | Outpatient (BNVA) | payer MEDICARE, SELFPAY | PROVIDERS: PCP Family Medicine; Visit Provider Internal Medicine | DX: I48.92 Unspecified atrial flutter (principal); I25.10 Atherosclerotic heart disease of native coronary artery without angina pectoris; Z95.3 Presence of xenogenic heart valve; Z95.0 Presence of cardiac pacemaker | CPT/HCPCS: 93280; 99212 ==

== ENCOUNTER → 2025-04-08 23:59 | Outpatient (BNV) | payer MEDICARE, SELFPAY ==
--- NOTE | 2025-04-19 12:01 | A.OFFVIS_ITS ---
Intake Visit Reasons: Remote ICD check- Medtr[employer] Allergies lisinopril (LISINOPRIL) Allergy (Mild, Verified 08/19/23 12:45) COUGH Shxadof-ROF-HyJ Reductase Inhibitor (QGZHJZI-WTI-YAN REDUCTASE INHIBITOR) Allergy (Mild, Verified 08/19/23 12:45) RASH cephalexin (Keflex) Allergy (Unknown, Verified 08/19/23 12:45) GI upset and pain hydrochlorothiazide Allergy (Unknown, Verified 08/19/23 12:45) unknown Sulfa (Sulfonamide Antibiotics) Allergy (Verified 08/19/23 12:45) Rash [facility] Medical History (Updated 07/07/24 @ 15:16 by Hermes Hermosillo MD) Atherosclerotic cardiovascular disease Essential hypertension Psoriatic arthritis Nonrheumatic aortic (valve) stenosis Paroxysmal atrial flutter Surgical History Status post transcatheter aortic valve replacement (TAVR) using bioprosthesis History of knee surgery History of hysterectomy Family History Father CVD (cardiovascular disease) Mother No problems noted. 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 Overall normal device function. [id number] Cardiac Device Interrogation, pacemaker Procedure code (CPT) selection complete Assessment & Plan Assessment & Plan (1) Pacemaker: Code(s): Z95.0 - Presence of cardiac pacemaker Category: Medical (2) Paroxysmal atrial flutter: Code(s): I48.92 - Unspecified atrial flutter Category: Medical Plan x Coding Level of Care Code Procedure Only Diagnoses Pacemaker Z95.0 Paroxysmal atrial flutter I48.92 CPT Codes Cardiac Device Check - Cardiac Device 12: [id number] Cardiac Device Interrogation, pacemaker ([id number])
== END ==
PROVIDERS: PCP Family Medicine; Visit Provider Internal Medicine
DX: I48.92 Unspecified atrial flutter (principal); Z95.0 Presence of cardiac pacemaker
CPT/HCPCS: 93294

== ENCOUNTER → 2025-07-08 23:59 | Outpatient (BNV) | payer MEDICARE, SELFPAY ==
--- NOTE | 2025-07-15 12:29 | MHC.OFFVIS ---
Intake Visit Reasons: Remote ICD check- Medtr[employer] Allergies lisinopril (LISINOPRIL) Allergy (Mild, Verified 08/19/23 12:45) COUGH Nwamgha-SLD-SjZ Reductase Inhibitor (ZGDAZWK-RMK-GZU REDUCTASE INHIBITOR) Allergy (Mild, Verified 08/19/23 12:45) RASH cephalexin (Keflex) Allergy (Unknown, Verified 08/19/23 12:45) GI upset and pain hydrochlorothiazide Allergy (Unknown, Verified 08/19/23 12:45) unknown Sulfa (Sulfonamide Antibiotics) Allergy (Verified 08/19/23 12:45) Rash [facility] Medical History (Updated 07/07/24 @ 15:16 by Hermes Hermosillo MD) Atherosclerotic cardiovascular disease Essential hypertension Psoriatic arthritis Nonrheumatic aortic (valve) stenosis Paroxysmal atrial flutter Surgical History Status post transcatheter aortic valve replacement (TAVR) using bioprosthesis History of knee surgery History of hysterectomy Family History Father CVD (cardiovascular disease) Mother No problems noted. 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 Overall normal device function. [id number] Cardiac Device Interrogation, pacemaker Procedure code (CPT) selection complete Assessment & Plan Assessment & Plan (1) Pacemaker: Code(s): Z95.0 - Presence of cardiac pacemaker Category: Medical (2) Paroxysmal atrial flutter: Code(s): I48.92 - Unspecified atrial flutter Category: Medical Plan x Coding Level of Care Code Procedure Only Diagnoses Pacemaker Z95.0 Paroxysmal atrial flutter I48.92 CPT Codes Cardiac Device Check - Cardiac Device 12: [id number] Cardiac Device Interrogation, pacemaker ([id number])
== END ==
PROVIDERS: PCP Family Medicine; Visit Provider Internal Medicine
DX: I48.92 Unspecified atrial flutter (principal); Z95.0 Presence of cardiac pacemaker
CPT/HCPCS: 93294